=== PATIENT | female | born 1940 | race Caucasian/White ===

== ENCOUNTER 2016-11-02 13:35 | Inpatient (IN) | payer OTHER, MEDICARE ==
[~2016-11-02] VITALS: Ht 152.4 cm; Wt 55.3 kg
[~2016-11-02 13:35] MED LIST: AMITRIPTYLINE H10 M1 PO; ATENOLOL25 MG PO; ATIVAN0.5 MG PO; COMBIGAN 0.2%-010 ML OPH; DELTASONE20 MG PO; ECOTRIN81 MG PO; ESCITALOPRAM10 MG PO; FISH OIL CONC1000 MG PO; FUROSEMIDE20 M1 PO; FUROSEMIDE20 MG PO; GLIPIZIDE ER2.5 M1 PO; GLIPIZIDE ER2.5 MG PO; K-DUR 20MEQ TA20 MEQ PO; LANTUS SOL100 UNIT/1 SC; MAGOX 400241.3 MG PO; MIRTAZAPINE15 MG PO; NEURONTIN100 M1 PO; NEURONTIN100 MG PO; NOVOLOG FL100 UNIT/1; NOVOLOG FL100 UNIT/1 SC; POTASSIUM CHLO20 ME2 PO; PREDNISOLONE AC10 ML OPH; PRESERVISION1 SGL PO; REMERON 7.5MG7.5 MG PO; RISPERIDONE PO; RISPERIDONE3 M1 PO; RISPERIDONE3 MG PO; RISPERIDONE4 M1 PO; TYLENOL #31 TAB PO; VITAB121000 PO; ZITHROMAX500 M2 PO; [UNRECOGNIZED DRUG - CODE] OPH; [UNRECOGNIZED DRUG - OTHER] OPH
--- NOTE | 2016-11-02 14:19 | NUR ---
PER AUSIS, PT HAS HAD INCREASING WEAKNESS, CONFUSION AND PAIN ALL OVER, LOWER LEG EDEMA X 3 DAYS. LIVES ALONE, IS LEGALLY BLIND. PMH: CHF, PNEUMONIA, ? DEMENTIA. PRESNETLY ALERT AND ORIENTED TO DATE, TIME PERSON.
--- NOTE | 2016-11-02 14:24 | NUR ---
PER GRAND DAUGHTER, AFTER LAST ADMISSION; PT REFUSED HOME HEALTH AIDES OR OTHER ASSISTANCE AT HOME.
--- NOTE | 2016-11-02 14:26 | NUR ---
APPRECIATE TRIAGE NOTE. PT TO ROOM 16 VIA WHEELCHAIR. ASSISTED INTO HOSPITAL GOWN AND ONTO STRETCHER. EKG IN PROGRESS.
--- NOTE | 2016-11-02 14:38 | NUR ---
[place] SHRESTHA TO BEDSIDE FOR EVAL.
--- NOTE | 2016-11-02 14:48 | ED GENERAL ADULT ---
History of Present Illness General Chief Complaint: General Adult Stated Complaint: AMS,WEAKNESS, PAIN - MULTIPLE COMPLAINTS Source: patient Exam Limitations: no limitations Triage Note: PER GRANDAUSIS, PT HAS HAD INCREASING WEAKNESS,PAIN ALL OVER, LOWER LEG EDEMA X 3 DAYS. LIVES ALONE, Triage Nurses Notes Reviewed? yes Onset: Gradual Duration: worse persistent since (3 DAYS) Timing: recent history Injury Environment: home Severity: moderate No Modifying Factors: none HPI: Patient is a 76-year-old female with history of hypertension, diabetes presenting to the emergency department with granddaughter with chief complaint of intermittent altered mental status progressive weakness over the past 3-4 days. Granddaughter reports that she's been unable to get out of bed and barely can walk around. She usually ablates with a cane and has had difficulty. Denies any nausea or vomiting or fevers or chills. Patient denying any urinary symptoms. Patient denying any abdominal pain. She does report that she has chronic back and extremity pain. She is currently on Lyrica and the dose was increased last week. Denies any other changes in medication. No recent antibiotics. [place]IO[place] F[place]. Per granddaughter patient has been not acting herself and she called earlier and thought she sounded confused over the phone. Patient reported that she wasn't sure if she took her medications are OR IF SHE DOUBLED Up on her medications. (FADY ATKINSON,GERMAIN) Vital Signs & Intake/Output Vital Signs & Intake/Output Vital Signs Date Time Temp Pulse Resp B/P Pulse O2 O2 Flow FiO2 Ox Delivery Rate 11/02 1951 97.1 75 18 151/67 98 Room Air 11/02 1657 97.3 64 18 152/66 97 Room Air 11/02 1448 97.6 67 18 130/60 100 Room Air Room Air Allergies Coded Allergies: oxycodone (From PERCOCET) (Intermediate, NAUSEA 11/02/16) Reconcile Medications Aspirin (Ecotrin) 81 MG ECT 1 TAB PO DAILY HEART/BLOOD (Reported) Atenolol 25 MG TAB 25 MG PO DAILY HIGH BLOOD PRESSURE (Reported) Atropine Sulfate (Atropine Care) 15 ML FLACA 1 DROP OPH Saturday BOTH EYES (Reported) Brimonidine Tartrate/Timolol (Combigan Eye Drops) 0.2 %-0.5 % DROPS 1 DRP OP BID EYE (Reported) Celecoxib 200 MG CAPSULE 1 CAP PO DAILY PAIN (Reported) Cyanocobalamin (Vitamin B-12) 1,000 MCG TAB 1 TAB PO DAILY SUPPLEMENT ( Reported) Escitalopram Oxalate (Lexapro) 10 MG TABLET 1 TAB PO DAILY MENTAL HEALTH ( Reported) Fish Oil (Fish Oil Concentrate) 1,000 MG SGL 1 SGL PO DAILY SUPPLEMENT ( Reported) Furosemide 20 MG TABLET 1 TAB PO DAILY HYPERTENSION (Reported) Gabapentin (Neurontin) 100 MG CAPSULE 1 CAP PO AT BEDTIME PAIN Glipizide (Glipizide ER) 2.5 MG TAB.ER.24 1 TAB PO TID DM (Reported) Insulin Aspart, Recombinant (Novolog Flexpen) 100 UNIT/1 ML INSULN.PEN 0 SC TID DM (Reported) Insulin Glargine,Hum.rec.anlog (Lantus Solostar) (Unknown Strength) INSULN.PEN (Unknown Dose) SC QPM DIABETES (Reported) Lorazepam 0.5 MG TABLET 1 TAB PO QPM SLEEP (Reported) MAGNESIUM OXIDE (Magox 400) 241.3 MG TAB 1 TAB PO BID SUPPLEMENT (Reported) Potassium Chloride 20 MEQ TAB.ER.PRT 1 TAB PO DAILY SUPPLEMENT (Reported) Prednisolone Acetate 10 ML NATALIA 1 DROP OPH SATURDAY WED SATURDAY BOTH EYES ( Reported) Prednisone 2.5 MG TABLET 1 TAB PO DAILY STEROID (Reported) Pregabalin (Lyrica) 100 MG CAPSULE 1 CAP PO TID PAIN (Reported) Risperidone (Risperdal) 3 MG TABLET 2 TAB PO QPM MENTAL HEALTH (Reported) Sodium Chloride (Ariane-128) 2 % DROPS 1 DRP OP TID EYE (Reported) Tylenol With Codeine (Tylenol With Codeine #3 Tablet) 1 TAB TAB 1 TAB PO BID PRN cough (Reported) VIT A/VIT C/VIT E/ZINC/COPPER (Preservision Areds Softgel) 1 SGL SGL 1 SGL PO BID SUPPLEMENT (Reported) (LUDMILA HEBERT,[place] Arnett) Past History Travel History Traveled to [place] past 21 day No Medical History Any Pertinent Medical History? 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 Endocrine: DIABETES (TYPE 2) Blood Disorders: NONE Cancer(s): NONE RETAIL DEPARTMENT RESET/Reproductive: NONE History of MRSA: No History of VRE: No History of CDIFF: No Surgical History Surgical History: hip replacement, KNEE REPLACMENT Psychosocial History Who do you live with Patient/Self Services at Home Nursing What is your primary language Gambian Tobacco Use: Never used ETOH Use: denies use Family History Family History, If Any: BROTHER (Seizures as a child, outgrown. No other family history of epilepsy). Hx Contributory? No (GERMAIN AMBROCIO) Review of Systems Review of Systems Constitutional: Reports: malaise, weakness. Comments Review of systems: See HPI, All other systems negative. Constitutional, no chills fever or weight loss HEENT: No visual changes no sore throat no congestion Cardiovascular: No chest pain ,palpitation , orthopnea or ankle swelling Skin, no jaundice no rashes Respiratory: No dyspnea cough sputum or hemoptysis GI: No nausea no vomiting : No dysuria No hematuria Muscle skeletal: POS BACK AND NECK Neurologic: No numbness NO HEADACHE Psych: No stress anxiety or depression,. Heme/endocrine: No bruising no bleeding no polyuria or polydipsia Immunology: No splenectomy or history of AIDS (GERMAIN AMBROCIO) Physical Exam Physical Exam General Appearance: well developed/nourished, comfortable, FATIGUED Comments: Well-developed well-nourished person in no acute distress HEENT: extraocular motion intact, no nystagmus. Pupils equally round and reactive to light and accommodation. Nose is atraumatic. External auditory canal and Tympanic membranes clear. Pharynx normal. No swelling or edema. Neck: Supple, no lymphadenopathy, normal range of motion without pain or tenderness Back: Nontender, no CVA tenderness. Full range of motion Cardiovascular: Regular rate and rhythms no murmurs rubs or gallops, normal JVP Respiratory: Chest nontender. No respiratory distress.breath sounds clear to auscultation bilaterally Abdomen: Soft, nontender nondistended, no appreciable organomegaly. Normal bowel sounds. No ascites, NO REBOUND OR GAURDING. Extremity: No edema, no calf tenderness to palpation, normal and equal pulses. Walks with minimal assistance of one with cane. Neuro: Alert oriented x3, motor sensory normal, cranial nerves II through XII grossly intact. Skin: No appreciable rash on exposed skin, skin is warm and dry. Psych: Mood and affect is normal, memory and judgment is normal. Core Measures ACS in differential dx? No CVA/TIA Diagnosis: No Severe Sepsis Present: No Septic Shock Present: No (GERMAIN AMBROCIO) Progress Differential Diagnoses I considered the following diagnoses in my evaluation of the patient: UTI, PNA, MEDICATION NON-COMPLIANCE, MEDICATION REACTION, CHRONIC PAIN, CVA Diagnostic Imaging: Viewed by Me: Radiology Read, CT Scan. Discussed w/RAD: Radiology Read, CT Scan. Radiology Impression: PATIENT: DONNAMARCH PRESENT AGE: 76 PATIENT ACCOUNT NO: [id number] : 39 LOCATION: ER ORDERING PHYSICIAN: GERMAIN ATKINSON SERVICE DATE: 11/02/16 EXAM TYPE: CAT - CT HEAD WO IV CONTRAST EXAMINATION: CT HEAD WITHOUT CONTRAST CLINICAL INFORMATION: Confusion COMPARISON: 12/13/2015 TECHNIQUE: Contiguous axial imaging was performed from the skull base to vertex without intravenous administration of contrast. DLP: 600 mGy-cm. FINDINGS: There is no evidence of acute intracranial hemorrhage or territorial infarction. No abnormal mass effect or midline shift is seen. Byrd to white matter differentiation is well preserved. No extra-axial fluid collections are identified. The ventricles are normal in size. There is no abnormal attenuation within the brain parenchyma. The osseous structures and soft tissues are normal. The mastoid air cells and visualized portions of the paranasal sinuses are well aerated. IMPRESSION: No acute intracranial pathology. DICTATED BY: KENZIE ARMENTA MD DATE/TIME DICTATED:11/02/161613 ARMHOLE RAISER LOCKSTITCH: NANCY DATE/TIME TRANSCRIBED:11/02/161613 CONFIDENTIAL, DO NOT COPY WITHOUT APPROPRIATE AUTHORIZATION. <Electronically signed in Other Vendor System> SIGNED BY: KENZIE ARMENTA MD 11/02/161617 CXR Impression: PATIENT: DONNA PRESENT AGE: 76 PATIENT ACCOUNT NO: [id number] : 39 LOCATION: ER ORDERING PHYSICIAN: GERMAIN ATKINSON SERVICE DATE: 11/02/16 EXAM TYPE: RAD - XRY- PORTABLE CHEST XRAY EXAMINATION: XR PORTABLE CHEST CLINICAL INFORMATION: Weakness, URI symptoms COMPARISON: 05/08/2016 TECHNIQUE: Portable view of the chest was obtained. FINDINGS: The lungs are clear with no focal consolidation. No evidence of pneumothorax, pulmonary edema, or pleural effusions. Cardiac size is within normal limits. Calcification is present at the aortic arch. No acute osseous findings are seen. IMPRESSION: No acute cardiopulmonary findings. DICTATED BY: GAURAV RYDER MD DATE/TIME DICTATED:11/02/161510 ARMHOLE RAISER LOCKSTITCH:NANCY DATE/TIME TRANSCRIBED:11/02/161510 CONFIDENTIAL, DO NOT COPY WITHOUT APPROPRIATE AUTHORIZATION. <Electronically signed in Other Vendor System> SIGNED BY: GAURAV RYDER MD 11/02/161516 Initial ED EKG: NORMAL SINUS RHYTHM AT 66 BPM Prior EKG: unchanged Comments: On arrival patient is neurologically intact but appears fatigued. We will assess CBC, CMP, urine drug screen, urinalysis, chest x-ray. Family concern for intermittent altered mental status and concern for safety at home. They're concerned that she stopped taking her medications properly and get some confused. Patient denies this. 11/02/2016 6:45:07 PMPatient family members informed of all of her results and imaging study results. Her opiate level and her urine drug screen is greater than 4000. It was explained that this could definitely contributing to a intermittent altered mental status and her weakness. Recent increases in lyrica dosing can also cause exaggerated symptoms. Patient will need medication adjustments, physical therapy evaluation, potentially rehabilitation placement. Patient unsafe to be home alone. Patient was seen and evaluated by Dr. Joe and he agrees with plan. (FDAY ATKINSON,GERMAIN) Plan of Care: Orders Procedure Date/time Status Consistent Carbohydrate 1 11/03 B Active Code Status 11/02 2040 Active Admit to inpatient 11/02 2003 Active TRC EVALUATION (GEN) 11/02 1951 Active OXYGEN SETUP (GEN) 11/02 1951 Active Pathway - chart 11/02 1951 Active House Staff 11/02 1951 Active Patient Data 11/02 1951 Active Code Status 11/02 1951 Complete Patient Data 11/02 193 Active Telemetry/Die Polisher 11/02 1448 Active RAPID VIRAL INFLUENZA A 11/02 1448 Complete URINE DRUG SCREEN FOR ER ONLY 11/02 1448 Complete URINALYSIS 11/02 1448 Complete TROPONIN LEVEL 11/02 1448 Complete LACTIC ACID 11/02 1448 Complete COMPREHENSIVE METABOLIC PANEL 11/02 1448 Complete CBC WITHOUT DIFFERENTIAL 11/02 1448 Complete EKG 11/02 1426 Active VTE Mechanical Prophylaxis 11/02 UNK Active Vital Signs 11/02 UNK Active MISTAKE 11/02 UNK Active Intake & Output 11/02 UNK Active FingerStick- Glucose 11/02 UNK Active Current Medications Sig/Bertha Start time Last Medication Dose Stop Time Status Admin Insulin Aspart 0 TIDAC 11/03 0800 AC (NovoLOG) Laboratory Tests 11/02/16 1748: Lactic Acid Cancelled 11/02/16 1517: Urine Opiates Screen > 4000.00 H, Methadone Screen < 40, Barbiturate Screen < 60, Ur Phencyclidine Scrn < 6.00, Amphetamines Screen < 100, U Benzodiazepines Scrn < 85, Urine Cocaine Screen < 50, Urine Cannabis Screen < 5.00, Urine Color YEL, Urine Clarity CLEAR, Urine pH 6.0, Ur Specific [place] 1.010, Urine Protein NEG, Urine Ketones NEG, Urine Nitrite NEG, Urine Bilirubin NEG, Urine Urobilinogen 0.2, Ur Leukocyte Esterase NEG, Ur Microscopic EXAM NOT REQUIRED, Urine Hemoglobin NEG, Urine Glucose NEG 11/02/16 1506: Anion Gap 7, Estimated GFR > 60, BUN/Creatinine Ratio 30.0 H, Glucose 106 H, Lactic Acid 1.6, Calcium 8.1 L, Total Bilirubin 0.3, AST 18, ALT 30, Alkaline Phosphatase 93, Troponin I < 0.01, Total Protein 5.6 L, Albumin 2.8 L, Globulin 2.8, Albumin/Globulin Ratio 1.0 L, CBC w Diff NO MAN DIFF REQ, RBC 3.70 L, MCV 85.5, MCH 28.8, RDW 14.6 H, MPV 7.9, Gran % 67.6, Lymphocytes % 18.6 L, Monocytes % 12.4 H, Eosinophils % 1.1, Basophils % 0.3, Absolute Granulocytes 3.9, Absolute Lymphocytes 1.1 L, Absolute Monocytes 0.7 H, Absolute Eosinophils 0.1, Absolute Basophils 0, PUBS MCHC 33.7 Departure Departure Time of Disposition: 1843 Disposition: STILL A PATIENT Condition: Stable Clinical Impression Primary Impression: Altered mental status, unspecified Qualifiers: Altered mental status type: unspecified Qualified Code: R41.82 - Altered mental status, unspecified Secondary Impressions: Noncompliance with medication regimen Referrals: FRANCK HEBERTMARGARETH (PCP/Family) Departure Forms: Customer Survey General Discharge Information Admission Note Spoke With: ANNALEE MOORE MD Documentation of Exam: Documentation of any treatments & extenuating circumstances including Concerns Regarding Discharge (functional status, medication knowledge or non-compliance, living conditions, etc.) that warrant an admission rather than observation: Patient coming in for altered mental status and intermittent and progressively getting worse over last 3-4 days, patient is unsafe home to manage her medications, patient requiring IV hydration, medication management and potentially altering medication regimen to effectively provide adequate pain relief without causing excessive drowsiness, patient may need teary psychiatric consultation, patient potentially may need rehabilitation placement pending physical therapy consultation for safety. (GERMAIN AMBROCIO) PA/IT SERVICE MANAGER Co-Sign Statement Statement: ED Attending supervision documentation- [x] I saw and evaluated the patient. I have also reviewed all the pertinent lab results and diagnostic results. I agree with the findings and the plan of care as documented in the PA's/IT SERVICE MANAGER's documentation. [] I have reviewed the ED Record and agree with the PA's/IT SERVICE MANAGER's documentation. [] Additions or exceptions (if any) to the PAs/IT SERVICE MANAGER's note and plan are summarized below: [] (LUDMILA HEBERT,[place] Arnett) Critical Care Note Critical Care Note Critical Care Time: non-applicable (GERMAIN AMBROCIO)
--- NOTE | 2016-11-02 15:09 | NUR ---
BLOOD DRAWN AND SENT TO LAB. SST,LAV,BLUE,QUICK.
--- NOTE | 2016-11-02 15:13 | NUR ---
PHARMACY CALLED FOR FLU SWAB.
[2016-11-02 15:16] LABS: ABSOLUTE BASOPHIL COUNT 0 /CUMM (0.0-0.2); ABSOLUTE EOSINOPHIL COUNT 0.1 /CUMM (0.0-0.7); ABSOLUTE GRANULOCYTE CT 3.9 /CUMM (1.4-6.5); ABSOLUTE LYMPH COUNT 1.1 /CUMM (1.2-3.4); ABSOLUTE MONOCYTE COUNT 0.7 /CUMM (0.10-0.60); BASOPHIL % 0.3 % (0.0-2.0); EOSINOPHIL % 1.1 % (0-5); GRANULOCYTE % 67.6 % (42.2-75.2); HEMATOCRIT 31.6 % (37-47); MEAN CORPUSCULAR HGB 28.8 PG (27.0-31.0); MEAN CORPUSCULAR HGB CONC 33.7 G/DL (33.0-37.0); MEAN CORPUSCULAR VOLUME 85.5 FL (81.0-99.0); MEAN PLATELET VOLUME 7.9 FL (7.4-10.4); PLATELET COUNT 205 /CUMM (130-400); RBC DISTRIBUTION WIDTH 14.6 % (11.5-14.5); WHITE BLOOD CELL COUNT 5.8 /CUMM (4.8-10.8)
--- NOTE | 2016-11-02 15:17 | RADIOLOGY REPORT ---
EXAMINATION: XR PORTABLE CHEST CLINICAL INFORMATION: Weakness, URI symptoms COMPARISON: 05/08/2016 TECHNIQUE: Portable view of the chest was obtained. FINDINGS: The lungs are clear with no focal consolidation. No evidence of pneumothorax, pulmonary edema, or pleural effusions. Cardiac size is within normal limits. Calcification is present at the aortic arch. No acute osseous findings are seen. IMPRESSION: No acute cardiopulmonary findings.
[2016-11-02] MEDS ORDERED: CELECOXIB200 M1 PO (15:20)
[2016-11-02] MEDS ORDERED: LORAZEPAM0.5 M1 PO (15:20)
[2016-11-02] MEDS ORDERED: LYRICA100 M1 PO (15:20)
[2016-11-02] MEDS ORDERED: PREDNISONE2.5 M1 PO (15:21)
--- NOTE | 2016-11-02 15:22 | NUR ---
URINE TRIO SENT TO LAB.
[2016-11-02] MEDS ORDERED: LEXAPRO10 M1 PO (15:23)
[2016-11-02] MEDS ORDERED: RISPERDAL3 M1 PO (15:23)
[2016-11-02] MEDS ORDERED: MURO-12815 ML OP (15:27)
[2016-11-02] MEDS ORDERED: COMBIGAN EYE DRO5 ML OP (15:28)
--- NOTE | 2016-11-02 15:39 | NUR ---
FLU SWAB SENT, LINE EST #22 TO [facility]. MEDICATIONS HUNG PER EMAR.
--- NOTE | 2016-11-02 15:41 | NUR ---
PT TO CAT SCAN VIA STRETCHER.
--- NOTE | 2016-11-02 16:18 | CT SCAN REPORT ---
EXAMINATION: CT HEAD WITHOUT CONTRAST CLINICAL INFORMATION: Confusion COMPARISON: 12/13/2015 TECHNIQUE: Contiguous axial imaging was performed from the skull base to vertex without intravenous administration of contrast. DLP: 600 mGy-cm. FINDINGS: There is no evidence of acute intracranial hemorrhage or territorial infarction. No abnormal mass effect or midline shift is seen. Byrd to white matter differentiation is well preserved. No extra-axial fluid collections are identified. The ventricles are normal in size. There is no abnormal attenuation within the brain parenchyma. The osseous structures and soft tissues are normal. The mastoid air cells and visualized portions of the paranasal sinuses are well aerated. IMPRESSION: No acute intracranial pathology.
--- NOTE | 2016-11-02 17:15 | NUR ---
DR. KEYS TO BEDSIDE TO EVALUATE PT.
--- NOTE | 2016-11-02 17:34 | NUR ---
[place] SHRESTHA TO BEDSIDE TO DISCUSS RESULTS AND POC.
--- NOTE | 2016-11-02 17:56 | NUR ---
TRAY ORDERED PER FAMILY REQUEST.
--- NOTE | 2016-11-02 20:04 | History & Physical ---
FLORENCIO JOHNSTON MD 11/02/161999: General Information and HPI MD Statement: I have seen and personally examined DONNA,MARCH and documented this H&P. The patient is a 76 year old F who presented with a patient stated chief complaint of [pain, weakness, confusion]. Source of Information: patient, family Exam Limitations: poor historian History of Present Illness: 76-year-old female with PMH of macular degeneration, legally blind both eyes, HTN, IDDM, neuropathy, chronic back pain, late onset paranoid schizophrenia, [facility] of severe generalized pain, altered mental status, and weakness. Initially, we obtained history from the patient. She was alert and oriented X 3. She was having 6/10, sharp lower back pain. The back pain has been chronic, reportedly from "dislocated disc". Over the past 3-4 days, she has had severe pain, on her back, arms, and legs. She has been having jerking movements on her legs and arms. She reported taking her medications as directed, including taking only 2 pills of tylenol # 3 daily. She lives on her own, in a trailer. She administers medications to herself with the help of a magnifying glass, and a machine that reads out loud her blood glucose level. I then spoke to her POA, Danna, who is her granddaughter, over the phone. According to Danna, pt has been having severe pain on her back, legs, and arms, for 4 months. THe pain is severe that she has difficulty standing up. It might take her 5 minutes to stand up from a sitting position. She has had cold symptoms and appeared more confused for the past 2 days. She would forget what she was trying to say, she also said "I might have taken my insulin twice", she would also say "weird things" to her granddaughters that did not make any sense. She reported not being able to see her pills, and not being able to see her food. Lyrica was increased a week ago due to the pain, and she has been increasingly somnolent. The pain is limiting her social activities that she does not want to leave the house because of pain. However, when she is on meds to control the pain, she is weak and tired, like "a zombie". As pt eats mostly microvable food, she has burnt her fingers a few times because the food was too hot. Danna has been concerned that she is not safe to be at home by herself and had social workers assessed her living condition. She had a visiting nurse come at some point, but she was reportedly safe by herself, hence they stopped coming 5 months ago. She was then offered services for meal preps and meds admin in exchange of her trailer when she passes away, which the patient adamently refused. Pt was very excited about the services but do not want to give away her home. Danna has previous asked her if they can live together, but the patient insists on living on her own. During previous attempts to discuss alternative living options, pt has gotten defensive and combative. She has "locked out" her visiting nurse and granddaughters in the past when the topic has been brought up. Danna's goal for this admission is to have a safe discharge plan for the patient. The pt's frustrations when she has been hospitalized in the past hast been inadequate pain control. In the past, her pain meds was lowered at discharge, which puts her in severe pain, requiring Dr. Juárez to bring the dose back up. She is upset that she is only getting tylenol for pain in the ED. I have discussed to Danna that we are reluctant to give her opioids for the pain at this time, and we would lower the lyrica dose. Allergies/Medications Allergies: Coded Allergies: oxycodone (From PERCOCET) (Intermediate, NAUSEA 11/02/16) Home Med list Aspirin (Ecotrin) 81 MG ECT 1 TAB PO DAILY HEART/BLOOD (Reported) Atenolol 25 MG TAB 25 MG PO DAILY HIGH BLOOD PRESSURE (Reported) Atropine Sulfate (Atropine Care) 15 ML FLACA 1 DROP OPH Saturday BOTH EYES (Reported) Brimonidine Tartrate/Timolol (Combigan Eye Drops) 0.2 %-0.5 % DROPS 1 DRP OP BID EYE (Reported) Celecoxib 200 MG CAPSULE 1 CAP PO DAILY PAIN (Reported) Cyanocobalamin (Vitamin B-12) 1,000 MCG TAB 1 TAB PO DAILY SUPPLEMENT ( Reported) Fish Oil (Fish Oil Concentrate) 1,000 MG SGL 1 SGL PO DAILY SUPPLEMENT ( Reported) Furosemide 20 MG TABLET 1 TAB PO DAILY HYPERTENSION (Reported) Insulin Aspart, Recombinant (Novolog Flexpen) 100 UNIT/1 ML INSULN.PEN 0 SC TID DM (Reported) Insulin Glargine,Hum.rec.anlog (Lantus Solostar) (Unknown Strength) INSULN.PEN 12 UNIT SC QPM DIABETES (Reported) MAGNESIUM OXIDE (Magox 400) 241.3 MG TAB 1 TAB PO BID SUPPLEMENT (Reported) Potassium Chloride 20 MEQ TAB.ER.PRT 1 TAB PO DAILY SUPPLEMENT (Reported) Prednisolone Acetate 10 ML NATALIA 1 DROP OPH Saturday BOTH EYES ( Reported) Pregabalin (Lyrica) 150 MG CAPSULE 1 CAP PO TID Chronic pain (Reported) Risperidone (Risperdal) 3 MG TABLET 2 TAB PO QPM MENTAL HEALTH (Reported) Sodium Chloride (Ariane-128) 2 % DROPS 1 DRP OP TID EYE (Reported) Tylenol With Codeine (Tylenol With Codeine #3 Tablet) 1 TAB TAB 1 TAB PO BID PRN cough (Reported) VIT A/VIT C/VIT E/ZINC/COPPER (Preservision Areds Softgel) 1 SGL SGL 1 SGL PO BID SUPPLEMENT (Reported) Past History Travel History Traveled to [place] past 21 day No Medical History Neurological: NEUROPATHY EENT: glaucoma, macular degeneration, LEGALLY BLIND - + PERIPHERAL VISION Cardiovascular: hypertension, 79% CAROTID OCCULSION Respiratory: NONE Gastrointestinal: NONE Hepatic: NONE Renal: NONE Musculoskeletal: NONE Psychiatric: schizophrenia, major depressive disorder with psychotic features. 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 No other family history of epilepsy). Psychosocial History Where do you live? Home Who Do You Live With? self Services at Home: None Primary Language: [place] Smoking Status: Never Smoked ETOH Use: denies use Illicit Drug Use: denies illicit drug use Functional Ability ADLs Independent: dressing, eating, toileting, bathing. Ambulation: cane IADLs Independent: food prep, telephone, medication admin. Needs Assist: shopping, housework, finances, transportation. Review of Systems Review of Systems Constitutional: Reports: chills, weakness. Denies: fever. EENTM: Denies: visual changes. Cardiovascular: Denies: chest pain, palpitations, syncope. Respiratory: Denies: cough, short of breath, sputum production. GI: Denies: abdominal pain, bloating, constipation, diarrhea, nausea, vomiting. Genitourinary: Denies: dysuria. Exam & Diagnostic Data Last 24 Hrs of Vital Signs/I&O Vital Signs Date Time Temp Pulse Resp B/P Pulse O2 O2 Flow FiO2 Ox Delivery Rate 11/028 97.4 72 18 133/63 98 Room Air Room Air 11/02 1952 97.1 75 18 151/67 98 Room Air 11/02 1657 97.3 64 18 152/66 97 Room Air 11/02 1448 97.6 67 18 130/60 100 Room Air Room Air Intake & Output 11/02 1600 11/02 0800 11/02 0000 Intake Total Output Total Balance Patient 55.338 kg Weight Physical Exam General Appearance Alert, Oriented X3, Cooperative, No Acute Distress, comfortably sitting in bed eating her dinner Skin No Significant Lesion HEENT left eyelid droop (chronic) Neck Supple, No JVD, right carotid bruit Lymphatic Axillary nl, Cervical nl Cardiovascular Regular Rate, Normal S1, Normal S2, No Murmurs, Gallops, Rubs Lungs Clear to Auscultation, Normal Air Movement Abdomen Normal Bowel Sounds, Soft, No Tenderness, tender on the lumbar spine Neurological Normal Speech, Strength at 5/5 X4 Ext Extremities No Edema, Normal Pulses Last 24 Hrs of Labs/Cipriano: Laboratory Tests 11/02/16 1517: Urine Opiates Screen > 4000.00 H, Methadone Screen < 40, Barbiturate Screen < 60, Ur Phencyclidine Scrn < 6.00, Amphetamines Screen < 100, U Benzodiazepines Scrn < 85, Urine Cocaine Screen < 50, Urine Cannabis Screen < 5.00, Urine Color YEL, Urine Clarity CLEAR, Urine pH 6.0, Ur Specific Toyah 1.010, Urine Protein NEG, Urine Ketones NEG, Urine Nitrite NEG, Urine Bilirubin NEG, Urine Urobilinogen 0.2, Ur Leukocyte Esterase NEG, Ur Microscopic EXAM NOT REQUIRED, Urine Hemoglobin NEG, Urine Glucose NEG 11/02/16 1506: Anion Gap 7, Estimated GFR > 60, BUN/Creatinine Ratio 30.0 H, Glucose 106 H, Lactic Acid 1.6, Calcium 8.1 L, Total Bilirubin 0.3, AST 18, ALT 30, Alkaline Phosphatase 93, Troponin I < 0.01, Total Protein 5.6 L, Albumin 2.8 L, Globulin 2.8, Albumin/Globulin Ratio 1.0 L, Vitamin B12 949 H, 25-OH Vitamin D Total 21.9 L, TSH 3.040, Free T4 1.19, CBC w Diff NO MAN DIFF REQ, RBC 3.70 L, MCV 85.5, MCH 28.8, RDW 14.6 H, MPV 7.9, Gran % 67.6, Lymphocytes % 18.6 L, Monocytes % 12.4 H, Eosinophils % 1.1, Basophils % 0.3, Absolute Granulocytes 3.9, Absolute Lymphocytes 1.1 L, Absolute Monocytes 0.7 H, Absolute Eosinophils 0.1, Absolute Basophils 0, PUBS MCHC 33.7 Diagnostic Data EKG Results SR 66, Peak T wave on V2 CXR Results No acute findings Other Results Head CT: no acute findings Assessment/Plan Assessment: 76-year-old female with PMH of macular degeneration, legally blind both eyes, HTN, IDDM, neuropathy, chronic back pain, late onset paranoid schizophrenia, was brought in by her [facility] for chief complaint of severe generalized pain, altered mental status, and weakness. Pt admitted to with the following problems addressed: # Increased confusion possibly due to polypharmacy vs recent increase in lyrica dose vs dementia vs hypoglycemia due to inappropriate insulin use vs opioid overdose from tylenol # 3 - Vit D level low - vit b12, tsh, ft4 normal * Start Vit D supplement * MMSE in am * PT/OT for discharge plan * SW * Consider psych evaluation on Saturday * I have asked Danna to bring her meds from home so that we can count the pills to make sure she is not accidentally overdosing on her meds # Acute on chronic back pain * Lumbar xray: Stable appearing compression deformity involving L2 * Lyrica 100 mg tid (was recently increased to 150 tid) * Hold tylenol # 3, pt has upset stomach with oxycodone * Tylenol and NSAIDs for pain, start PPI * Hold home celecoxib 200 mg for now # Hyperkalemia - K 5.2 with peak T wave on V2 * Hold home K supplement # Hyponatremia - Na 134 * Continue to monitor sodium # IDDM * Accucheck * Insulin ss * Levemir 12 units at bedtime # HTN/Cardiac meds * Continue aspirin 81 mg, atenolol 25 mg, lasix 20 mg * Hold Kcl supplement (home 20 meq) # Macular degeneration * Continue atropine sulfate, brimonidine/timolol, prednisolone acetate eye drops # Schizophrenia * Continue risperidone 6 mg qpm # Home meds * Continue Vit B12, fish oil, mg ox * Not available: karl a/c/e/zinc/copper, nacl eye drop Diet: heart healthy DVT ppx: mech and pharm DNR/DNI As Ranked By This Provider Problem List: 1. Back pain 2. Altered mental status Qualifiers Altered mental status type: unspecified Qualified Code: R41.82 - Altered mental status, unspecified 3. Complaints of total body pain Core Measures/Miscellaneous Acute Coronary Syndrome ACS Diagnosis: No Cerebrovascular Accident CVA/TIA Diagnosis: No Congestive Heart Failure CHF Diagnosis: No Venous Thromboembolism VTE Risk Factors: Age > 40 VTE Prophylaxis Ordered Inpt: Mech & Pharm No Mech VTE prophylaxis d/t: No contraindications No VTE Pharm Prophylaxis d/t: No contraindications VTE Diagnosis: No VTE Type: NONE VTE Confirmed by (Test): NONE Severe Sepsis Severe Sepsis Present: No Septic Shock Septic Shock Present: No Miscellaneous Documentation Attending Case Discussed With: ANNALEE MOORE MD Primary Care Physician: MARGARETH JUÁREZ MD A Patient sees these Specialists [facility] Level of Patient Care: General Medicine TIFFANIE PRUITT 11/02/16 2331: Resident Review Statement Resident Statement: examined this patient, discussed with financial intern, agreed with financial intern, reviewed images Other Findings: This is a 76-year-old lady with past medical history significant for hypertension, IDDM, neuropathy, chronic back pain, legally blind in both eyes ( macular degeneration), schizophrenia who was brought to the hospital by her granddaughter for increased back pain and weakness, she was also noted to have occasional altered mental status. Please see above for more details. VSS, AAO 3, NAD, head atraumatic, normocephalic, PERRLA, EOMI, neck supple, no JVD, right-sided carotid bruit, lymphatic normal, cardiovascular, RRR, no murmur. Lungs CTPA. Abdomen normal bowel sounds, soft, nontender, nondistended. Back: Tenderness on the lumbar spine region. Neurological: Nonfocal, normal speech, sensation intact, strength 5 over 54 extremities. No lower extremity edema, normal pulses. Labs and imaging data reviewed. Problem list #1 worsening of chronic back pain #2 altered mental status (delirium versus dementia) #3 hyperkalemia #4 IDDM Plan * Vital signs per protocol * I's and O's * Accu-Cheks * MMSE in the morning * We will start the patient on vitamin D 2000 units daily given her vitamin D levels * PT/OT/social/psych consult * Lumbar x-ray to rule out any fracture * Will hold any opiates and sedatives, will resume Lyrica, at the lower dose of 100 mg 3 times a day * Tylenol and ibuprofen for pain management * Will Start a PPI * Will hold outpatient potassium supplement given mildly elevated potassium of 5.2 * We will hold oral hypoglycemic agents, will start the patient on insulin sliding scale and will continue Levemir 12 units at bedtime. 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 Patient was brought in by granddaughter for on and off confusion and drowsiness. Patient being more forgetful at home, granddaughter feels that she is Unsafe at home, patient lives in trailer. Patient sees she is been more and more sleepy for her chronic back pain is main complaint. 14 point ROS negative except back pain. Vitals: Afebrile, HR, RR, BP, O2 saturation in acceptable range. On examination: A O 3, lethargic, mucosa moist, neck supple, no lymphadenopathy, no focal neurological deficit, tenderness over left sacroiliac joint. CVS: S1-S2, RRR. RS : Clear air entry bilaterally. Abdomen: Soft, NT, ND, bowel sounds present, no dependent edema. Labs: Hemoglobin 10.6, lactate 1.6, otherwise CBC, BMP, LFT unremarkable. Albumin 2.8. U tox positive for opiate. CT head: No acute intracranial pathology CXR: No acute cardiopulmonary findings. A and P #1 encephalopathy: Probably secondary to polypharmacy, patient on multiple medications including gabapentin, Lyrica risperidone, Tylenol with Codeine combination. According to the history, patient is more forgetful so if she is taking more of this medications causing confusion is not known. Patient also mentions that she doesn't remember how much insulin and she take, ? Underlying dementia, need to readjust medication patient says that she stopped taking gabapentin unclear if she takes the Risperdal, recently increased dose of Lyrica. Check B12 level, TSH level, OT PT evaluation. #2 DM: Continue sliding scale insulin. Confirm her home dose of Lantus. #3 chronic pain : Continue NSAIDS for now given patient's confusion, very small dose of morphine for severe pain from 8-10 intensity. Obtain lumbar x-ray #4 HTN: Continue atenolol. #5 Lovenox for DVT prophylaxis, OT PT evaluation, ?placement
--- NOTE | 2016-11-02 20:06 | NUR ---
NS BOLUS HUNG PER EMAR. HOUSE STAFF TO BEDSIDE FOR EVAL. PT SITTING UP AND EATING MEAL AT THIS TIME.
--- NOTE | 2016-11-02 21:03 | NUR ---
PT BED ASSIGNMENT 209-1
--- NOTE | 2016-11-02 21:14 | NUR ---
REPORT GIVEN TO FERNANDO HARPER. DISTRIBUTION CALLED FOR PT TRANSPORT.
[2016-11-02] MEDS ORDERED: LYRICA150 M1 PO (22:14)
--- NOTE | 2016-11-02 22:44 | RADIOLOGY REPORT ---
EXAMINATION: XR LUMBAR SPINE CLINICAL INFORMATION: Worsening back pain. Assess for fracture. COMPARISON: CT of the abdomen and pelvis from 11/23/2015 TECHNIQUE: Single frontal view of the lumbar spine FINDINGS: There is mild height loss involving L2, which is grossly similar to the prior study accounting for differences in modality. L5 laminectomy is redemonstrated. There is a mild dextroconvex scoliosis. There is an equivocal new mild compression deformity involving T11 and possibly T10 as well, neither of which is well assessed on this single frontal view. There is moderate degenerative change of the SI joints. Bilateral total hip replacements are partially visualized. The bowel gas pattern is nonobstructive. There are scattered phleboliths in the pelvis. IMPRESSION: 1. Stable appearing compression deformity involving L2, comparing across modalities. 2. Equivocal interval compression deformities of T10 and T11, not ideally assessed on this single frontal view. 3. Mild dextroconvex lumbar scoliosis. Remote L5 laminectomy.
--- NOTE | 2016-11-02 22:47 | NUR ---
NURSE NOTE: PT ARRIVED TO FLOOR AT 2130 VIA TRANSPORT TO ROOM 209-. REPORT RECIEVED FROM KELLY IN ED. PT IS [id number] AT THIS TIME, RA. IV ACCESS, ORIENTED TO ROOM. BED ALARM IN PLACE, ORIENTED TO ROOM. CALL KEYS IN REACH AND BED IN LOWEST POSITION.
[2016-11-02 23:58] VITALS: BP 160/90
[2016-11-03 06:19] VITALS: BP 90/32
[2016-11-03 06:53] VITALS: BP 122/54
--- NOTE | 2016-11-03 07:11 | Admission Certification ---
Admission Certification Certification Statement - As attending physician, I certify that at the time of - admission, based on clinical presentation, severity of - symptoms, need for further diagnostic testing and - therapeutic interventions, and risk of adverse outcomes - without in-hospital treatment, in my clinical assessment, - this patient requires an acute hospital stay for a minimum - of two nights or longer. I have also considered psychsocial - factors such as support system, advanced age, financial - issues, cognitive issues, and failed out-patient treatments, - past re-admission history, safety of patient, and lack of - compliance as applicable. Specific rationale supporting this admission is: Encephalopathy
--- NOTE | 2016-11-03 07:47 | NUR ---
NURSE NOTE: AROUND 0600, PT STATED SHE FELT COLD AND WEAK, PT WAS SWEATING. VITALS WERE STABLE FOR THE MOST PART, I CHECKED BLOOD SUGAR, CAME BACK AT 54. UNDERWRITING CLERK PAGED, WHILE WAITING FOR UNDERWRITING CLERK, GAVE PT JUICE AND CRACKERS WITH PEANUT BUTTER. RECHECKED IN 15 MINUTES BLOD SUGR WAS 84. RECHECK AGAIN IN 15 MINUTES AFTER 2 MORE JUICES, BLOOD SUGAR 90. MD MCLEAN CAME TO SEE PATIENT AT THIS TIME(0700). REPORT GIVEN TO CARTER.
--- NOTE | 2016-11-03 07:59 | PN- Housestaff ---
See Addendum Subjective Follow-up For: Increased confusion Medication non-compliance Acute on chronic LBP Hyperkalemia Hyponatremia Subjective: Patient seen and examined at bedside this AM. She endorses improved LBP after treatment overnight and she offers no complaints. She reports she ambulates well and is unwilling to be discharged eventually to an ECF. On discussion with granddaughter, owen reports that Debi is unsafe to live at home alone as she can barely get out of bed in the AM and is unable to cook food- she just eats TV dinners which are loaded with sodium, which is concerning in the setting of her CHF. Anne is also worried that Debi is very unsteady on her feet and at high risk of falling in the setting of being legally blind. Review of Systems Constitutional: Denies: chills, fever, malaise, weakness. EENTM: Reports: see HPI. Denies: hearing changes, nasal congestion. Cardiovascular: Denies: chest pain, palpitations. Respiratory: Denies: cough, short of breath. Gastrointestinal: Denies: abdominal pain, bloating, constipation, diarrhea. Genitourinary: Denies: dysuria. Musculoskeletal: Denies: back pain. Skin: Denies: change in skin color, change in hair/nails. Neurological/Psychological: Denies: confusion, emotional problems, headache, numbness. Hematologic/Endocrine: Denies: bruising, bleeding. Objective Last 24 Hrs of Vital Signs/I&O Vital Signs Date Time Temp Pulse Resp B/P Pulse O2 O2 Flow FiO2 Ox Delivery Rate 11/03 0906 90 132/56 11/03 0653 122/54 11/03 0619 97.5 73 20 90/32 97 11/02 2358 98.7 106 20 160/90 97 11/02 2118 97.4 72 18 133/63 98 Room Air Room Air 11/02 1952 97.1 75 18 151/67 98 Room Air 11/02 1657 97.3 64 18 152/66 97 Room Air 11/02 1448 97.6 67 18 130/60 100 Room Air Room Air Intake & Output 11/03 1600 11/03 0800 11/03 0000 Intake Total 480 120 Output Total Balance 480 120 Intake, Oral 480 120 Patient 122 lb Weight Physical Exam General Appearance: Alert, Oriented X3, Cooperative, No Acute Distress Other Physical Findings: Skin No Significant Lesion HEENT left eyelid droop (chronic) Neck Supple, No JVD, right carotid bruit Lymphatic Axillary nl, Cervical nl Cardiovascular Regular Rate, Normal S1, Normal S2, No Murmurs/Gallops/Rubs Lungs Clear to Auscultation, Normal Air Movement Abdomen Normal Bowel Sounds, Soft, No Tenderness, tender over the lumbar spine Neurological Normal Speech, Strength at 5/5 X4 Ext Extremities No Edema, Normal Pulses Current Medications: Current Medications Sig/Bertha Start time Last Medication Dose Route Stop Time Status Admin Acetaminophen 650 MG Q6P PRN 11/02 2130 AC PO Acetaminophen 0 .STK-MED ONE 11/02 1533 DC IV Acetaminophen 1,000 MG ONCE ONE 11/02 1515 DC 11/02 N/A 1 UNIT IV 11/02 1529 1538 Aspirin 81 MG DAILY 11/03 1000 AC 11/03 PO 0906 Atenolol 25 MG DAILY 11/03 1000 AC 11/03 PO 0906 Atropine Sulfate 1 GTT 11/05 1000 AC OPH Brimonidine Tartrate 1 GTT BID 11/03 1000 AC 11/03 OPH 0906 Celecoxib 200 MG DAILY 11/03 1000 CAN PO Cholecalciferol 2,000 IU DAILY 11/03 1000 AC 11/03 PO 0906 Cyanocobalamin 1,000 MCG DAILY 11/03 1000 AC 11/03 PO 0913 Fish Oil 1,050 MG DAILY 11/03 1000 AC 11/03 PO 0906 Furosemide 20 MG DAILY 11/03 1000 AC 11/03 PO 0906 Ibuprofen 600 MG Q6P PRN 11/02 2130 AC 11/03 PO 0024 Insulin Aspart 0 TIDAC 11/03 0800 AC SC Insulin Detemir 12 UNITS AT BEDTIME 11/02 2330 AC 11/03 SC 0024 Magnesium Oxide 400 MG BID 11/03 1000 AC 11/03 PO 0906 Melatonin 5 MG ONCE ONE 11/03 0100 DC 11/03 PO 11/03 0101 0105 Omeprazole 40 MG DAILY AC 11/03 0700 AC 11/03 PO 0905 Prednisolone 1 GTT 11/05 1000 AC OPH Pregabalin 100 MG TID 11/02 2200 AC 11/03 PO 0909 Risperidone 6 MG QPM 11/02 2300 AC 11/03 PO 0026 Sodium Chloride 1,000 ML BOLUS ONE 11/02 1845 DC 11/02 IV 11/02 Timolol Maleate 1 GTT BID 11/03 1000 AC 11/03 OPH 0906 Last 24 Hrs of Lab/Cipriano Results Last 24 Hrs of Labs/Mics: Laboratory Tests 11/02/16 1748: Lactic Acid Cancelled 11/02/16 1517: Urine Opiates Screen > 4000.00 H, Methadone Screen < 40, Barbiturate Screen < 60, Ur Phencyclidine Scrn < 6.00, Amphetamines Screen < 100, U Benzodiazepines Scrn < 85, Urine Cocaine Screen < 50, Urine Cannabis Screen < 5.00, Urine Color YEL, Urine Clarity CLEAR, Urine pH 6.0, Ur Specific [place] 1.010, Urine Protein NEG, Urine Ketones NEG, Urine Nitrite NEG, Urine Bilirubin NEG, Urine Urobilinogen 0.2, Ur Leukocyte Esterase NEG, Ur Microscopic EXAM NOT REQUIRED, Urine Hemoglobin NEG, Urine Glucose NEG 11/02/16 1506: Anion Gap 7, Estimated GFR > 60, BUN/Creatinine Ratio 30.0 H, Glucose 106 H, Lactic Acid 1.6, Calcium 8.1 L, Total Bilirubin 0.3, AST 18, ALT 30, Alkaline Phosphatase 93, Troponin I < 0.01, Total Protein 5.6 L, Albumin 2.8 L, Globulin 2.8, Albumin/Globulin Ratio 1.0 L, Vitamin B12 949 H, 25-OH Vitamin D Total 21.9 L, TSH 3.040, Free T4 1.19, CBC w Diff NO MAN DIFF REQ, RBC 3.70 L, MCV 85.5, MCH 28.8, RDW 14.6 H, MPV 7.9, Gran % 67.6, Lymphocytes % 18.6 L, Monocytes % 12.4 H, Eosinophils % 1.1, Basophils % 0.3, Absolute Granulocytes 3.9, Absolute Lymphocytes 1.1 L, Absolute Monocytes 0.7 H, Absolute Eosinophils 0.1, Absolute Basophils 0, PUBS MCHC 33.7 Orders Radiology Findings: EXAMINATION: XR LUMBAR SPINE CLINICAL INFORMATION: Worsening back pain. Assess for fracture. COMPARISON: CT of the abdomen and pelvis from 11/23/2015 TECHNIQUE: Single frontal view of the lumbar spine FINDINGS: There is mild height loss involving L2, which is grossly similar to the prior study accounting for differences in modality. L5 laminectomy is redemonstrated. There is a mild dextroconvex scoliosis. There is an equivocal new mild compression deformity involving T11 and possibly T10 as well, neither of which is well assessed on this single frontal view. There is moderate degenerative change of the SI joints. Bilateral total hip replacements are partially visualized. The bowel gas pattern is nonobstructive. There are scattered phleboliths in the pelvis. IMPRESSION: 1. Stable appearing compression deformity involving L2, comparing across modalities. 2. Equivocal interval compression deformities of T10 and T11, not ideally assessed on this single frontal view. 3. Mild dextroconvex lumbar scoliosis. Remote L5 laminectomy. Head CT: IMPRESSION: No acute intracranial pathology. CXR: IMPRESSION: No acute cardiopulmonary findings. Assessment/Plan Assessment: Ms. Garg is a pleasant 76 year old female with PMH macular degeneration with legal bilateral blindess, HTN, IDDM, neuropathy, chronic back pain, and late onset paranoid schizophrenia who presented to the ED with her granddaughter after concerns for weakness, increasing confusion and low back pain (acute on chronic). Patient was admitted to the general medicine floor and the following is the management: 1. Encephalopathy * DDx: delirium vs dementia, polypharmacy, recent increase in lyrica dose, dementia, hypoglycemia/innapropriate insulin dose, opiod overdose (tylenol #3) * Vit D low, Vit B12/TSH/FT4 normal * MMSE done today shows no impairment (lost 1 point for recall, unable to WORLD backwards), of note, she could not perform visual tasks (3 points) * PT/OT consulted, PT suggested patient is stable for discharge home * Social work consult placed, will f/u recommendations * Florecita (granddaughter) brought patient's home meds and there are several medications patient appears to not be compliant with (see student report from for full details) * Patient will likely benefit from STR/ECF as she is unable to take medications appropriately * Continue Vit B12, fish oil, mg ox * Not available: karl a/c/e/zinc/copper, nacl eye drop 2. Acute on chronic LBP * Lumbar XR shows stable appearing L2 compression deformity, no new abnormalities noted * Lyrica 100 mg PO TID resumed (did not resume recently increased dose of 150 TID) * NSAIDs and tylenol for pain, HOLD tylenol #3 in setting of encephalopathy, hold any opiates and sedatives * PPI started * HOLD celecoxib 200 mg for now in setting of NSAIDs being ordered for pain 3. Hyperkalemia * K of 5.2 on admission * Peaked T wave in lead V2 * Hold K supplement for now, monitor BEP daily 4. Hyponatremia * Na of 134 on admission * Continue to monitor BEP 5. IDDM * Hold oral hypoglycemics * Continue accuchecks TIDAC/HS * NSS TIDAC/HS * Levemir 12 U bedtime, consider decreasing to 10 as granddaughter reports March recently was hypoglycemic at home 6. HTN * Continue aspirin 81 mg, atenolol 25 mg, lasix 20 mg * Monitor vitals Q shift 7. Macular degeneration * Continue atropine sulfate, brimonidine/timolol, prednisolone acetate eye drops 8. Schizophrenia * Continue risperidone 6 mg PO QPM DNR/DNI Diet: Heart healthy DVTP: mechanical and pharm Mild pain pathways- NSAIDS, hold Tylenol #3 Problem List: 1. Back pain 2. Altered mental status 3. Complaints of total body pain 4. Noncompliance with medication regimen Pain Ratin Pain Location: n/a Pain Goal: Remain pain free Pain Plan: Tylenol and NSAIDs for pain, hold tylenol #3 Tomorrow's Labs & Rationales: CBC (make sure anemia is stable) BEP (monitor her hyperkalemia and hyponatremia)
--- NOTE | 2016-11-03 10:41 | PN- Student ---
Subjective Subjective: Patient is a 76 year old female brought in by her [facility] for chief complaint of severe generalized pain, altered mental status, and weakness. Patient is non-complient with her home medications. Potassium Cl BID 60 pills refilled on 10/05/16 has over 20 pills left Atenolol 25 mg 30 pills refilled on 10/06/16 has 22 pills left Furosemide 20 mg 90 pills presribed on 09/20/16, has over 60 pills left Furosemide 20 mg 90 pills prescribed on 10/03/16 has 30 pills left Acetamenophen 650 BID pf 60 pills prescribed on 10/22/16 has 35 pills left Mirtazapine 15 mg of 15 pills 1/2 at bedtime, 20 half pills left and one prescription from 10/03/16 has all 15 pills Celecoxib 20 mg 30 pills once a day prescribed on 10/17/16 has 23 left (should be 13 left) Risperidone 4mg 30 pills prescribed on 10/03/16 has 22 pills left Lyrica 100 mg BID 60 pills prescribed on 10/18/16 has 30 left (only complient medication)
--- NOTE | 2016-11-03 12:00 | NUR ---
NURSING NOTE: ASSUMED CARE OF PT AT THIS TIME, PT SITTING IN CHAIR EATING HER LUNCH, PT DENIES COMPLAINTS, FSG 154, COVERED PER SLIDING SCALE. CHAIR ALARM IN PLACE AND WORKING, NEEDS IN REACH, PT VERBALIZES UNDERSTANDING TO CALL FOR ASSIST. CONT TO MONITOR.
--- NOTE | 2016-11-03 13:20 | Patient Discharge Instructions ---
Discharge Instructions General Discharge Information You were seen/treated for: Increasing confusion Acute on chronic low back pain Special Instructions: Please follow up with Dr. Connors within 7 days of discharge. Please take all medications as directed. Please follow up with [facility] PSYCHIATRIC THERAPIST tomorrow 11/07/16 at 330 pm. Diet Recommended Diet: Diabetic Activity Activity Self Limited: Yes Acute Coronary Syndrome Inclusion Criteria At DC or during hospital stay patient has or had the following: ACS DIAGNOSIS No Discharge Core Measures Meds if any: Prescribed or Continued at Discharge Meds if any: NOT Prescribed or Continued at Discharge Congestive Heart Failure Inclusion Criteria At DC or during hospital stay patient has or had the following: CHF DIAGNOSIS No Discharge Core Measures Meds if any: Prescribed or Continued at Discharge Meds if any: NOT Prescribed or Continued at Discharge Cerebrovascular accident Inclusion Criteria At DC or during hospital stay patient has or had the following: CVA/TIA Diagnosis No Discharge Core Measures Meds if any: Prescribed or Continued at Discharge Meds if any: NOT Prescribed or Continued at Discharge Venous thromboembolism Inclusion Criteria VTE Diagnosis No VTE Type NONE VTE Confirmed by (Test) NONE Discharge Core Measures - Per Current guidelines, there needs to be overlap - treatment for the first 5 days of Warfarin therapy. - If discharged on Warfarin prior to 5 days of - overlap therapy, the patient will need to be - assessed for post discharge needs including - *Post discharge parental anticoagulation - *Warfarin and/or parental anticoagulation education - *Follow up date to check INR post discharge At least 5 days overlap therapy as Inpatient No Meds if any: Prescribed or Continued at Discharge Note: Overlap Therapy is Warfarin and Anticoagulant Meds if any: NOT Prescribed or Continued at Discharge
[2016-11-03 15:51] VITALS: BP 162/74
[2016-11-03 23:40] VITALS: BP 129/53
[2016-11-04 07:37] VITALS: BP 130/60
--- NOTE | 2016-11-04 07:40 | NUR ---
ACCUCHECK 64; PATIENT STATES "I THOUGHT MY SUGAR WAS LOW, I AM VERY TIRED"; PATIENT GIVEN APPLE JUICE AND PEANUT BUTTER CRACKERS WHICH SHE IMMEDIATELY BEGAN EATING; DR Bill GOODE NOTIFIED AND AWARE; PER DR GOODE CONTINUE TO MONITOR AND RECHECK ACCUCHECK; PER DR GOODE SHE WILL LIKELY ADJUST LEVEMIR DOSE; WILL CONTINUE TO MONITOR PATIENT;
--- NOTE | 2016-11-04 08:05 | PN- Housestaff ---
See Addendum Subjective Follow-up For: Encephalopathy IDDM with hypoglycemia Subjective: Patient seen and examined at bedside this AM. She reports increased lethargy and worsening of her bilateral lower extremity burning neuropathy. She endorses the current lyrica dose is not helping. Review of Systems Constitutional: Reports: malaise. Denies: chills, fever. EENTM: Denies: hearing changes, nasal congestion, throat pain. Cardiovascular: Denies: chest pain, palpitations. Respiratory: Denies: cough, short of breath. Gastrointestinal: Denies: abdominal pain, bloating, constipation, diarrhea, nausea, vomiting. Genitourinary: Denies: dysuria. Musculoskeletal: Reports: back pain (Chronic). Skin: Denies: erythema, rash. Neurological/Psychological: Reports: numbness, paresthesia, tingling. Denies: confusion, headache. Hematologic/Endocrine: Denies: bruising, bleeding. Immunologic/Allergic: Denies: splenectomy. Objective Last 24 Hrs of Vital Signs/I&O Vital Signs Date Time Temp Pulse Resp B/P Pulse O2 O2 Flow FiO2 Ox Delivery Rate 11/04 0737 98.4 66 20 130/60 97 Room Air 11/03 2340 97.9 69 18 129/53 98 Room Air 11/03 1551 98.2 71 19 162/74 98 11/03 1415 Room Air 11/03 0906 90 132/56 Intake & Output 11/04 1600 11/04 0800 11/04 0000 Intake Total 360 600 Output Total 600 350 Balance -240 250 Intake, Oral 360 600 Number 1 Bowel Movements Output, Urine 600 350 Physical Exam General Appearance: Alert, Oriented X3, Cooperative, No Acute Distress Skin: No Rashes, No Significant Lesion HEENT: Atraumatic, Mucous Membr. moist/pink Neck: Supple Lymphatic: Cervical nl Cardiovascular: Regular Rate, Normal S1, Normal S2 Lungs: Clear to Auscultation, Normal Air Movement Abdomen: Normal Bowel Sounds, Soft, No Tenderness, No Hepatospenomegaly, No Masses Neurological: Normal Speech, Normal Tone Extremities: No Clubbing, No Cyanosis, No Edema Vascular: Pulses Symmetrical Current Medications: Current Medications Sig/Bertha Start time Last Medication Dose Route Stop Time Status Admin Acetaminophen 650 MG Q6P PRN 11/02 2130 AC 11/04 PO 0520 Aspirin 81 MG DAILY 11/03 1000 AC 11/03 PO 0906 Atenolol 25 MG DAILY 11/03 1000 AC 11/03 PO 0906 Atropine Sulfate 1 GTT 11/05 1000 AC OPH Brimonidine Tartrate 1 GTT BID 11/03 1000 AC 11/03 OPH 2113 Cholecalciferol 2,000 IU DAILY 11/03 1000 AC 11/03 PO 0906 Cyanocobalamin 1,000 MCG DAILY 11/03 1000 AC 11/03 PO 0913 Fish Oil 1,050 MG DAILY 11/03 1000 AC 11/03 PO 0906 Furosemide 20 MG DAILY 11/03 1000 AC 11/03 PO 0906 Ibuprofen 600 MG Q6P PRN 11/02 2130 AC 11/04 PO 0244 Insulin Aspart 0 TIDAC 11/03 0800 AC 11/03 SC 1703 Insulin Detemir 8 UNITS AT BEDTIME 11/04 2200 AC SC Insulin Detemir 10 UNITS AT BEDTIME 11/03 2200 DC 11/03 SC 2113 Insulin Detemir 12 UNITS AT BEDTIME 11/02 2330 DC 11/03 SC 0024 Magnesium Oxide 400 MG BID 11/03 1000 AC 11/03 PO 2112 Omeprazole 40 MG DAILY AC 11/03 0700 AC 11/04 PO 0649 Prednisolone 1 GTT 11/05 1000 AC OPH Pregabalin 100 MG TID 11/02 2200 AC 11/03 PO 2112 Risperidone 6 MG QPM 11/02 2300 AC 11/03 PO 2112 Timolol Maleate 1 GTT BID 11/03 1000 AC 11/03 OPH 2113 Orders Radiology Findings: EXAMINATION: XR LUMBAR SPINE CLINICAL INFORMATION: Worsening back pain. Assess for fracture. COMPARISON: CT of the abdomen and pelvis from 11/23/2015 TECHNIQUE: Single frontal view of the lumbar spine FINDINGS: There is mild height loss involving L2, which is grossly similar to the prior study accounting for differences in modality. L5 laminectomy is redemonstrated. There is a mild dextroconvex scoliosis. There is an equivocal new mild compression deformity involving T11 and possibly T10 as well, neither of which is well assessed on this single frontal view. There is moderate degenerative change of the SI joints. Bilateral total hip replacements are partially visualized. The bowel gas pattern is nonobstructive. There are scattered phleboliths in the pelvis. IMPRESSION: 1. Stable appearing compression deformity involving L2, comparing across modalities. 2. Equivocal interval compression deformities of T10 and T11, not ideally assessed on this single frontal view. 3. Mild dextroconvex lumbar scoliosis. Remote L5 laminectomy. Head CT: IMPRESSION: No acute intracranial pathology. CXR: IMPRESSION: No acute cardiopulmonary findings. Assessment/Plan Assessment: Ms. Garg is a pleasant 76 year old female with PMH macular degeneration with legal bilateral blindess, HTN, IDDM, neuropathy, chronic back pain, and late onset paranoid schizophrenia who presented to the ED with her granddaughter after concerns for weakness, increasing confusion and low back pain (acute on chronic). Patient was admitted to the general medicine floor and the following is the management: 1. Encephalopathy * DDx: delirium vs dementia, polypharmacy, recent increase in lyrica dose, dementia, hypoglycemia/innapropriate insulin dose, opiod overdose (tylenol #3) * Vit D low, Vit B12/TSH/FT4 normal * MMSE done 11/03/16 shows no impairment (lost 1 point for recall, unable to WORLD backwards), of note, she could not perform visual tasks (3 points) * PT/OT consulted, PT suggested patient is stable for discharge home * Social work consult placed, will f/u recommendations * Florecita (granddaughter) brought patient's home meds and there are several medications patient appears to not be compliant with (see student report from for full details) * Patient will likely benefit from STR/ECF or close monitoring home care as she is unable to take medications appropriately * Continue Vit B12, fish oil, mg ox * Not available: karl a/c/e/zinc/copper, nacl eye drop 2. Acute on chronic LBP * Lumbar XR shows stable appearing L2 compression deformity, no new abnormalities noted * Lyrica 100 mg PO TID resumed (did not resume recently increased dose of 150 TID), however patient is reporting severe lower extremity neuropathy, will consider increasing to 150 TID * NSAIDs and tylenol for pain, HOLD tylenol #3 in setting of encephalopathy, hold any opiates and sedatives * PPI started * HOLD celecoxib 200 mg for now in setting of NSAIDs being ordered for pain 3. Hyperkalemia * K of 5.2 on admission * Peaked T wave in lead V2 * Hold K supplement for now, monitor BEP daily (awaiting results from today's lab work) 4. Hyponatremia * Na of 134 on admission * Continue to monitor BEP (awaiting today's results to determine management) 5. IDDM * Hold oral hypoglycemics * Continue accuchecks TIDAC/HS * NSS TIDAC/HS * Levemir 12 U decreased from 10 to 8 U SC as patient was hypoglycemic again this AM to a glucose of 64 this AM 6. HTN * Continue aspirin 81 mg, atenolol 25 mg, lasix 20 mg * Monitor vitals Q shift 7. Macular degeneration * Continue atropine sulfate, brimonidine/timolol, prednisolone acetate eye drops 8. Schizophrenia * Continue risperidone 6 mg PO QPM DNR/DNI Diet: Heart healthy DVTP: mechanical and pharm Mild pain pathways- NSAIDS, hold Tylenol #3 Problem List: 1. Noncompliance with medication regimen 2. Altered mental status 3. Leg pain 4. History of - depression 5. History of - hypertension 6. Diabetes mellitus Pain Ratin Pain Location: Bilateral lower extremities burning pain (neuropathy) Pain Goal: Pain 4 or less Pain Plan: Lyrica for peripheral neuropathy, Motrin for moderate/severe pain, tylenol for mild pain. Tomorrow's Labs & Rationales: Awaiting lab results from today to determine necessary labs for tomorrow. DVT/Prophylaxis: mechanical
[2016-11-04 08:57] LABS: ABSOLUTE BASOPHIL COUNT 0 /CUMM (0.0-0.2); ABSOLUTE EOSINOPHIL COUNT 0.3 /CUMM (0.0-0.7); ABSOLUTE GRANULOCYTE CT 4.6 /CUMM (1.4-6.5); ABSOLUTE LYMPH COUNT 1.9 /CUMM (1.2-3.4); ABSOLUTE MONOCYTE COUNT 0.8 /CUMM (0.10-0.60); BASOPHIL % 0.5 % (0.0-2.0); EOSINOPHIL % 3.3 % (0-5); GRANULOCYTE % 60.6 % (42.2-75.2); HEMATOCRIT 31.5 % (37-47); MEAN CORPUSCULAR HGB 29.2 PG (27.0-31.0); MEAN CORPUSCULAR HGB CONC 33.4 G/DL (33.0-37.0); MEAN CORPUSCULAR VOLUME 87.6 FL (81.0-99.0); PLATELET COUNT 200 /CUMM (130-400); RBC DISTRIBUTION WIDTH 14.9 % (11.5-14.5); RED BLOOD CELL CT 3.59 /CUMM (4.20-5.40); WHITE BLOOD CELL COUNT 7.7 /CUMM (4.8-10.8)
--- NOTE | 2016-11-04 09:23 | NUR ---
PATIENT WASHED AND BRUSHED UPPER AND LOWER DENTURES IN BATHROOM; PATIENT BATHED; SKIN INTACT; SANDEEP COAT CHANGED; LINENS CHANGED; PATIENT NOW SITTING IN CHAIR WITH CHAIR ALARM IN PLACE; WILL CONTINUE TO MONITOR PATIENT;
[2016-11-04 15:59] VITALS: BP 146/65
--- NOTE | 2016-11-04 21:11 | Event Note ---
Event Note Event Note: SITUATION Patient suddenly became unresponsive with asymmetric pupils and desaturation Brief: patient is a 76 YO F admitted with AMS, jason found to be unresponsive to commands. She was deep in sleep and woke up with sternal rub. Thoughts about lyrica overdose are also made at the time of admission. However her lyrica 150mg TID restarted today, last dose being at 4pm. She opened her eyes however not oriented which is her baseline. Upon examination * Neuro exam is signficant for asymmetric pupils - otherwise unremarkable * So requested a stat CT Assessment and plan * A head CT along trop and EKG are requested stat which were negative * Discontinued night dose of lyrica * reconsider dose of lyrica - as per primary team.
[2016-11-04 21:20] VITALS: BP 132/54
--- NOTE | 2016-11-04 22:20 | CT SCAN REPORT ---
EXAMINATION: CT HEAD WITHOUT CONTRAST CLINICAL INFORMATION: Asymmetrical pupillary dilatation, left greater than right. COMPARISON: Noncontrast head CT 11/02/2016. TECHNIQUE: Contiguous axial imaging was performed from the skull base to vertex without intravenous administration of contrast. DLP: 600 mGy-cm. FINDINGS: Mild parenchymal volume loss with proportional prominence of the sulci and ventricles. No acute intracranial abnormality. No acute intracranial hemorrhage, mass or mass effect or abnormal extra-axial fluid collections. The density within the dural venous sinuses is within normal limits. The ventricles are normal in size, without hydrocephalus. There are no focal areas of hypoattenuation within a vascular distribution to suggest acute transcortical ischemia. The basilar cisterns are patent. No acute calvarial abnormality is identified. No visible abnormality of the bilateral orbits. Soft tissues appear unremarkable. The imaged paranasal sinuses and mastoid air cells are well aerated. IMPRESSION: No acute intracranial abnormality.
[2016-11-04 23:35] VITALS: BP 133/55
--- NOTE | 2016-11-04 23:47 | NUR ---
NURSING NOTE; LATE ENTRY; AROUND 2049 THIS RN WENT IN TO CHECK ON PT. THIS RN FOUND PT TO BE UNRESPONSIVE. THIS RN CALLED #[phone] FOR A RAPID RESPONSE. SEE RAPID RESPONSE SHEET. VITAL SIGNS STABLE, BLOD PRESSURE - 132/54, PULSE - 76, TEMP - 99.3, RESPIRATIONS - 16, SPO2 - 97% ON RA. BLOOD GLUCOSE - 213. STAT EKG AND BLOOD WORK COMPLETED. CT OF HEAD ALSO ORDERED AND COMPLETE. BLOOD WORK AND EKG ALL NORMAL WELL CT OF HEAD. WILL CONTINUE TO MONITOR.
--- NOTE | 2016-11-05 06:58 | PN- Housestaff ---
See Addendum Subjective Follow-up For: Altered mental status Polypharmacy Inappropriate medication administration Acute on chronic LBP Hyperkalemia Subjective: Patient seen and examined at bedside this AM. She continues to endorse lethargy and believe that lyrica, regardless of the dose, is associated with her being tired. She has also tried gabapentin in the past which did not cause her to be as drowsy. On discussion regarding discharge planning with patient, she is finally amenable to home health services as there is concern she is unintentionally taking her medications inappropriately. Review of Systems Constitutional: Reports: malaise. Denies: chills, fever. EENTM: Denies: blurred vision, visual changes, hearing changes, nasal congestion. Cardiovascular: Denies: chest pain, palpitations. Respiratory: Denies: cough, short of breath. Gastrointestinal: Denies: abdominal pain, bloating, constipation, diarrhea. Genitourinary: Denies: dysuria, frequency, hematuria. Musculoskeletal: Reports: back pain. Skin: Denies: change in skin color, change in hair/nails, lesions. Neurological/Psychological: Denies: ataxia, confusion, headache, tremors. Hematologic/Endocrine: Denies: bruising, bleeding. Immunologic/Allergic: Denies: splenectomy. Objective Last 24 Hrs of Vital Signs/I&O Vital Signs Date Time Temp Pulse Resp B/P Pulse O2 O2 Flow FiO2 Ox Delivery Rate 11/05 0912 68 112/58 11/05 0801 97.5 74 20 142/62 96 Room Air 11/04 2335 98.0 68 18 133/55 95 Room Air 11/04 2120 99.3 76 16 132/54 97 Room Air 11/04 1559 97.6 64 19 146/65 98 Intake & Output 11/05 1600 11/05 0800 11/05 0000 Intake Total 650 Output Total 300 Balance 350 Intake, Oral 650 Output, Urine 300 Physical Exam General Appearance: Alert, Oriented X3, Cooperative, No Acute Distress Skin: No Rashes, No Significant Lesion HEENT: Atraumatic, Mucous Membr. moist/pink Neck: Supple, No JVD Lymphatic: Axillary nl Cardiovascular: Regular Rate, Normal S1, Normal S2 Lungs: Clear to Auscultation, Normal Air Movement Abdomen: Normal Bowel Sounds, Soft, No Tenderness, No Hepatospenomegaly, No Masses Neurological: Normal Speech, Normal Tone Extremities: No Clubbing, No Cyanosis, No Edema Vascular: Pulses Symmetrical Current Medications: Current Medications Sig/Bertha Start time Last Medication Dose Route Stop Time Status Admin Acetaminophen 650 MG Q6P PRN 11/02 2130 AC 11/04 PO 0520 Aspirin 81 MG DAILY 11/03 1000 AC 11/05 PO 0908 Atenolol 25 MG DAILY 11/03 1000 AC 11/05 PO 0912 Atropine Sulfate 1 GTT 11/05 1000 AC 11/05 OPH 0913 Brimonidine Tartrate 1 GTT BID 11/03 1000 AC 11/05 OPH 0909 Cholecalciferol 2,000 IU DAILY 11/03 1000 AC 11/05 PO 0908 Cyanocobalamin 1,000 MCG DAILY 11/03 1000 AC 11/05 PO 0908 Fish Oil 1,050 MG DAILY 11/03 1000 AC 11/05 PO 0909 Furosemide 20 MG DAILY 11/03 1000 AC 11/05 PO 0908 Gabapentin 100 MG Q8 11/05 1400 AC PO Ibuprofen 600 MG .STK-MED ONE 11/04 1611 DC PO 11/04 1612 Ibuprofen 600 MG Q6P PRN 11/02 2130 AC 11/05 PO 0909 Insulin Detemir 8 UNITS AT BEDTIME 11/04 2200 AC 11/04 SC 2215 Magnesium Oxide 400 MG BID 11/03 1000 AC 11/05 PO 0908 Omeprazole 40 MG DAILY AC 11/03 0700 AC 11/04 PO 0649 Prednisolone 1 GTT 11/05 1000 AC 11/05 OPH 0909 Pregabalin 100 MG TID 11/05 1000 CAN PO Pregabalin 150 MG TID 11/04 1000 DC 11/04 PO 1609 Risperidone 6 MG QPM 11/02 2300 AC 11/04 PO 2214 Timolol Maleate 1 GTT BID 11/03 1000 AC 11/05 OPH 0909 Last 24 Hrs of Lab/Cipriano Results Last 24 Hrs of Labs/Mics: Laboratory Tests 11/05/16 0635: Anion Gap 6, Estimated GFR > 60, BUN/Creatinine Ratio 28.3 H 11/04/163: Troponin I 0.03 Orders Radiology Findings: EXAMINATION: CT HEAD WITHOUT CONTRAST CLINICAL INFORMATION: Asymmetrical pupillary dilatation, left greater than right. COMPARISON: Noncontrast head CT 11/02/2016. TECHNIQUE: Contiguous axial imaging was performed from the skull base to vertex without intravenous administration of contrast. DLP: 600 mGy-cm. FINDINGS: Mild parenchymal volume loss with proportional prominence of the sulci and ventricles. No acute intracranial abnormality. No acute intracranial hemorrhage, mass or mass effect or abnormal extra-axial fluid collections. The density within the dural venous sinuses is within normal limits. The ventricles are normal in size, without hydrocephalus. There are no focal areas of hypoattenuation within a vascular distribution to suggest acute transcortical ischemia. The basilar cisterns are patent. No acute calvarial abnormality is identified. No visible abnormality of the bilateral orbits. Soft tissues appear unremarkable. The imaged paranasal sinuses and mastoid air cells are well aerated. IMPRESSION: No acute intracranial abnormality. Assessment/Plan Assessment: Ms. Garg is a pleasant 76 year old female with PMH macular degeneration with legal bilateral blindess, HTN, IDDM, neuropathy, chronic back pain, and late onset paranoid schizophrenia who presented to the ED with her granddaughter after concerns for weakness, increasing confusion and low back pain (acute on chronic). Patient was admitted to the general medicine floor and the following is the management: 1. Encephalopathy * DDx: delirium vs dementia, polypharmacy, recent increase in lyrica dose, hypoglycemia/innapropriate insulin dose, opiod overdose (tylenol #3) * Vit D low, Vit B12/TSH/FT4 normal * MMSE done 11/03/16 shows no impairment (lost 1 point for recall, unable to WORLD backwards), of note, she could not perform visual tasks (3 points) * PT/OT consulted, PT suggested patient is stable for discharge home * Social work consult placed, will f/u recommendations * Florecita (granddaughter) brought patient's home meds and there are several medications patient appears to not be compliant with (see student report from for full details) * Patient will likely benefit from close monitoring home care as she is unable to take medications appropriately, case management aware as patient willing to have home health services * Continue Vit B12, fish oil, mg ox and vit d supplementation 2. Acute on chronic LBP * Lumbar XR shows stable appearing L2 compression deformity, no new abnormalities noted * Lyrica 100 mg PO TID discontinued as patient had a rapid response last night 5 hours after receiving lyrica (CT head at that time negative) * We will try gabapentin 100 mg TID for peripheral neuropathy * NSAIDs and tylenol for pain, HOLD tylenol #3 in setting of encephalopathy, hold any opiates and sedatives * PPI started * HOLD celecoxib 200 mg for now in setting of NSAIDs being ordered for pain 3. Hyperkalemia * K of 5.2 on admission, currently 4.2 * Peaked T wave in lead V2 on admission EKG * Hold K supplement for now, monitor BEP daily 4. Hyponatremia * Na of 134 on admission, currently 138 * Continue to monitor BEP 5. IDDM * Hold oral hypoglycemics * Continued accuchecks TIDAC/HS * Discontinued NSS TIDAC/HS as patient was hypoglycemic the last 2 days * Levemir switched to 8U SC, will monitor FSGs closely and continue to adjust regimen as needed * HgA1C ordered for today, will f/u results 6. HTN * Continue aspirin 81 mg, atenolol 25 mg, lasix 20 mg * Monitor vitals Q shift 7. Macular degeneration * Continue atropine sulfate, brimonidine/timolol, prednisolone acetate eye drops 8. Schizophrenia * Continue risperidone 6 mg PO QPM DNR/DNI Diet: Heart healthy DVTP: mechanical and pharm Mild pain pathways- NSAIDS, hold Tylenol #3 Problem List: 1. Noncompliance with medication regimen 2. Back pain 3. Leg pain 4. Altered mental status 5. Schizophrenia 6. Diabetes mellitus Pain Ratin Pain Location: Low back bilaterally as well as bilateral lower extremity burning pain. Pain Goal: Pain 4 or less Pain Plan: Gabapentin for peripheral neuropathy, motrin for moderate/severe pain and tylenol for mild pain. Tomorrow's Labs & Rationales: None.
[2016-11-05 08:01] VITALS: BP 142/62
--- NOTE | 2016-11-05 14:12 | Discharge Summary ---
Visit Information Visit Dates Admission Date: 11/02/16 Discharge Date: 11/06/16 Hospital Course Course Attending Physician: ARJUN YUAN MD Primary Care Physician: MARGARETH JUÁREZ MD Consulting Request: Consulting Specialty: Psychiatry Consulting Physician: Willard Schumacher APRN Reason for Consult: Reevaluation of psychotropic medications Hospital Course: Ms. 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 The patient was noted to be more forgetful at home and granddaughter had concerns for safety, specifically the increased lethargy with current pain management regimen. In the ED: Vital signs showed T 97.6, HR 67, RR 18, BP 130/60 and O2 saturation of 100% on RA. Labs showed WBC 5.8, normocytic anemia to 10.6/31.6, Plt 205, Na 134, K 5.2, Cl 101, HCO3 26, BUN 18, Cre 0.6, Glu 106, lactic acid 1.6, AST/ALT WNL, troponin <0.01, Vit B12 949, Vit D low to 21.9, TSH 3.04, FT4 1.19. UA was WNL. Urine toxicology showed >4,000 for opiates. CXR was done and showed no abnormality. Head CT was also negative for acute intracranial pathology. Lumbar spine XRay showed stable compression deformity of L2 and T10/T10 equivocal compression deformities. Mild dextroconvex lumbar scoliosis. EKG showed NSR with HR 66, peak T wave on V2. Patient was admitted to the general medicine floor and the following was the management: 1. Encephalopathy: Patient remained AAOx3 with no acute delirium/abnormality noted on assessment. On admission, several medications were held, including tylenol #3, celecoxib, and lyrica was started at a lower dose of 100 mg TID instead of 150 mg TID. Initial workup for encephalopathy was to rule out toxic/ reversible causes of altered mental status. Electrolytes (Vit B12, TSH, FT4) were normal and with negative UA/CT/CXR, no identifiable causes of an infectious etiology found. Mini mental status examination was done and scored out of 27 points (as patient is legally blind and unable to perform visual tasks). Result was 24/27 which represents no impairment. On 11/03, patient's granddaughter was able to bring in the patient's home medications and these were counted. The counting showed that there were several medications the patient had not been taking/non-compliant with, though tylenol #3 appeared to be consumed the most. This raised into question safety of medication administration at home in the setting of being legally blind, and case management was consulted to set up home health services for discharge. Patient then had a rapid response on 11/04/16 5 hours after housestaff increased lyrica to 150 mg TID due to persistent and severe bilaterally lower extremity burning pain. Lyrica was then discontinued and patient was started on low dose gabapentin at 100 mg TID. Psychiatric consult was then placed due to concerns about evening risperidone dose (high at 6 mg QPM). Psychiatric suggested decreasing this to 4 mg as 6 mg may cause excess lethargy and confusion. Mirtazapine 7.5 mg PO was also added at bedtime. Celecoxib and tylenol #3 were discontinued at discharge. NEW/CHANGED medications include the following: mirtazapine 7.5 mg QPM, 4 mg risperidone QPM, ultram 25 mg Q6P for severe pain (#10) and gabapentin 300 mg TID. Of note, insulin levemir was also decreased TO 8 U SC as patient had noted hypoglycemia on 2 mornings which may be contributing to her altered mental status. 2. Acute on chronic low back pain in the setting of chronic back pain disorder: Patient had a lumbar xray done on admission that showed a stable appearing L2 compression deformity and equivocal compression deformity of T10/11. Tylenol #3 was held as was celecoxib and patient was started on NSAIDs for pain. PT consult was placed to mobilize patient and suggested that patient is safe to be discharged home with her cane/walker dependance. Ultram 25 mg PO Q6P was added due to severe pain not relieved with tylenol. Lyrica was discontinued as discussed above and gabapentin ordered for severe peripheral neuropathy. She was instead placed on 300 mg TID PO gabapentin for peripheral neuropathy. Patient should follow up closely with her PCP Dr. Juárez who will consider referral to a chronic pain specialist for management of patient's chronic low back pain failing prior outpatient therapy 3. Hyperkalemia: Patient had potassium level of 5.2 on admission. This was associated with Peaked T wave in lead V2 on admission EKG. She was given IV fluids and BEP was trended daily. Potassium quickly decreased to WNL and no further events occured. 4. Hyponatremia: Na level on admission was noted to be 134. BEP was trended and Na level was 138 on discharge. PCP should consider repeat labs within the month to monitor Na and K levels. 5. IDDM: Patient had her home medications held on admission and she was placed on a low dose novolog sliding scale as well as 12 U SC levemir at bedtime. Patient had 2 hypoglycemic episodes, both occuring in the AM, during her stay. This prompted the discontinuation of her low dose NSS and the decrease of her levemir to 8U SC at bedtime. Patient will be discharged on 8 U SC levemir for her sole anti-diabetic regimen. Of note, HgA1C was checked and found to be 7.0. PCP should consider close monitoring of her diabetic regimen/FSGs and adjust medications as needed. 6. HTN: Patient had her vital signs monitored every shift and she was continued on her home aspirin 81 mg, atenolol 25 mg, lasix 20 mg. She will continue these upon discharge. 7. Macular degeneration: Patient was continued on her atropine sulfate, brimonidine/timolol and prednisolone acetate eye drops. Continue these upon discharge. 8. Major depressive disorder with psychotic features: Patient was initially started on her home risperidone dose of 6 mg PO QPM. Psychiatric consult was placed due to concerns of this high dose and its possible side effect resulting in sedation/lethargy. Psychiatry suggested decreasing this to 4 mg PO QPM and adding mirtazapine 7.5 mg PO QPM for insomina. She was discharged home on both of these medications. She was set up with an appointment to see her psychiatrist SANTIAGO Hill the day after discharge, 11/07/16 at 3:30 pm. She should have close follow up with SANTIAGO Hill. 9. Code: DNR/DNI 10. DVTP: Mechanical ALPS Allergies: Coded Allergies: oxycodone (From PERCOCET) (Intermediate, NAUSEA 11/02/16) Significant Procedures: EXAMINATION: CT HEAD WITHOUT CONTRAST CLINICAL INFORMATION: Asymmetrical pupillary dilatation, left greater than right. COMPARISON: Noncontrast head CT 11/02/2016. TECHNIQUE: Contiguous axial imaging was performed from the skull base to vertex without intravenous administration of contrast. DLP: 600 mGy-cm. FINDINGS: Mild parenchymal volume loss with proportional prominence of the sulci and ventricles. No acute intracranial abnormality. No acute intracranial hemorrhage, mass or mass effect or abnormal extra-axial fluid collections. The density within the dural venous sinuses is within normal limits. The ventricles are normal in size, without hydrocephalus. There are no focal areas of hypoattenuation within a vascular distribution to suggest acute transcortical ischemia. The basilar cisterns are patent. No acute calvarial abnormality is identified. No visible abnormality of the bilateral orbits. Soft tissues appear unremarkable. The imaged paranasal sinuses and mastoid air cells are well aerated. IMPRESSION: No acute intracranial abnormality. EXAMINATION: XR LUMBAR SPINE CLINICAL INFORMATION: Worsening back pain. Assess for fracture. COMPARISON: CT of the abdomen and pelvis from 11/23/2015 TECHNIQUE: Single frontal view of the lumbar spine FINDINGS: There is mild height loss involving L2, which is grossly similar to the prior study accounting for differences in modality. L5 laminectomy is redemonstrated. There is a mild dextroconvex scoliosis. There is an equivocal new mild compression deformity involving T11 and possibly T10 as well, neither of which is well assessed on this single frontal view. There is moderate degenerative change of the SI joints. Bilateral total hip replacements are partially visualized. The bowel gas pattern is nonobstructive. There are scattered phleboliths in the pelvis. IMPRESSION: 1. Stable appearing compression deformity involving L2, comparing across modalities. 2. Equivocal interval compression deformities of T10 and T11, not ideally assessed on this single frontal view. 3. Mild dextroconvex lumbar scoliosis. Remote L5 laminectomy. EXAMINATION: XR PORTABLE CHEST CLINICAL INFORMATION: Weakness, URI symptoms COMPARISON: 05/08/2016 TECHNIQUE: Portable view of the chest was obtained. FINDINGS: The lungs are clear with no focal consolidation. No evidence of pneumothorax, pulmonary edema, or pleural effusions. Cardiac size is within normal limits. Calcification is present at the aortic arch. No acute osseous findings are seen. IMPRESSION: No acute cardiopulmonary findings. Disposition Summary Disposition Principal Diagnosis: Altered mental status likely secondary to medication interaction and unintentional overdose of tylenol #3 Peripheral neuropathy Acute on chronic low back pain Hypogylcemia in the setting of IDDM Additional Diagnosis: Hyperkalemia Hyponatremia HTN Macular degeneration with legal blindness Major depressive disorder with psychotic features Discharge Disposition: home health services Discharge Instructions General Discharge Information Code Status: Do Not Resucitate/Intubat Patient's Diet: Consistent carbogydrate 2. Patient's Activity: Cane dependant. Follow-Up Instructions/Appts: Please follow up with Dr. Juárez within 7 days of discharge. Please take all medications as directed. Please follow up with [place] [facility] WHEEL LOADER OPERATOR tomorrow 11/07/16 at 330 pm. Medications at Discharge Discharge Medications: Stop taking the following medications: Tylenol With Codeine (Tylenol With Codeine #3 Tablet) 1 TAB TAB ORAL TWICE DAILY as needed for cough Qty = 1 Potassium Chloride (Potassium Chloride) 20 MEQ TAB.ER.PRT ORAL DAILY Insulin Glargine,Hum.rec.anlog (Lantus Solostar) (Unknown Strength) INSULN.PEN Inject into fatty tissue Every night Insulin Aspart, Recombinant (Novolog Flexpen) 100 UNIT/1 ML INSULN.PEN Inject into fatty tissue THREE TIMES DAILY Qty = 15 Celecoxib (Celecoxib) 200 MG CAPSULE ORAL DAILY Qty = 30 Risperidone (Risperdal) 3 MG TABLET ORAL Every night Pregabalin (Lyrica) 150 MG CAPSULE ORAL THREE TIMES DAILY Continue taking these medications: VIT A/VIT C/VIT E/ZINC/COPPER (Preservision Areds Softgel) 1 SGL SGL 1 SGL ORAL TWICE DAILY Comments: NOT GIVEN INPATIENT Aspirin (Ecotrin) 81 MG ECT 1 Tablet ORAL DAILY Comments: Last Taken: 03/03/16 Time:9am Cyanocobalamin (Vitamin B-12) 1,000 MCG TAB 1 Tablet ORAL DAILY Comments: Last Taken:03/03/16 Time:9am MAGNESIUM OXIDE (Magox 400) 241.3 MG TAB 1 Tablet ORAL TWICE DAILY Qty = 60 Comments: NOT GIVEN INPATIENT Fish Oil (Fish Oil Concentrate) 1,000 MG SGL 1 SGL ORAL DAILY Comments: Last Taken:03/03/16 Time:9am Prednisolone Acetate (Prednisolone Acetate) 10 ML NATALIA 1 DROP In the eye SATURDAY, SATURDAY AND SATURDAY Comments: not taken Atropine Sulfate (Atropine Care) 15 ML FLACA 1 DROP In the eye SATURDAY, SATURDAY AND SATURDAY Comments: NOT GIVEN INPATIENT Atenolol (Atenolol) 25 MG TAB 25 Milligram ORAL DAILY Comments: Last Taken:03/03/16 Time:9am Furosemide (Furosemide) 20 MG TABLET 1 Tablet ORAL DAILY Sodium Chloride (Ariane-128) 2 % DROPS 1 DRP OPHTHALMIC THREE TIMES DAILY Brimonidine Tartrate/Timolol (Combigan Eye Drops) 0.2 %-0.5 % DROPS 1 DRP OPHTHALMIC TWICE DAILY Start taking the following new medications: Gabapentin (Gabapentin) 100 MG CAPSULE 3 Capsule ORAL THREE TIMES DAILY Qty = 90 No Refills Comments: Last Taken: 11/06/16 Time: 6AM Risperidone (Risperidone) 4 MG TABLET 1 Tablet ORAL Every night Qty = 30 No Refills Comments: Last Taken: 11/05/16 Time: 2200PM Mirtazapine (Mirtazapine) 7.5 MG TABLET 1 Tablet ORAL Every night Qty = 30 No Refills Comments: Last Taken: 11/05/16 Time: 2200PM Tramadol HCl (Tramadol HCl) 50 MG TABLET 0.5 Tablet ORAL EVERY SIX HOURS NEEDED as needed for Severe Pain 7-10 Qty = 10 No Refills Comments: Last Taken: 11/06/16 Time: 6AM Insulin Detemir (Levemir Flextouch) 100 UNIT/ML (3 ML) INSULN.PEN 8 Units Inject into fatty tissue Every night Qty = 1 No Refills Comments: Last Taken: 11/05/16 Time: 2200PM Copies To: FRANCK HEBERT,FABIOLA SCHMIDT APRN, MD Review Statement Documenting Attending: KWABENA HEBERT,ARJUN Bain Other Findings: Agree with the discharge plan. Pt being dced home with home care . Lyrica was stopped and was started on neurontin. Levemir dose was decreased to 8U qhs and risperidone was changed to 4mg qhs and was started on remeron 7.5 mg qhs. d/w pt the medication changes prior to discharge.
[2016-11-05] MEDS ORDERED: GABAPENTIN100 M2 PO (15:28)
[2016-11-05] MEDS ORDERED: LEVEMIR FL100 UNIT/1 SC (15:28)
[2016-11-05 15:44] VITALS: BP 130/68
--- NOTE | 2016-11-05 17:42 | Cons- Psychiatry ---
Psychiatric Consult Date of Consult: 11/05/16 Reason for Consult: "Re-evaluation of current psychiatric medications for late onset schizophrenia in the setting of altered mental status" [NOTE: The patient has been diagnosed with major depressive disorder with psychotic features, not schizophrenia.] History of Present Illness: This is a 76-year-old female who was brought to the hospital by her granddaughter on 11/02/2016 at 1419 with increasing weakness, confusion and overall body pain, as well as lower leg edema for 3 days. The patient is followed at [facility] outpatient psychiatry by Angie Hill APRN, and was last seen in August 2016. The patient lives alone, and has refused offers of help in the home in the past. She is legally blind, secondary to macular degeneration. She has a supportive daughter and granddaughter. Allergies: Coded Allergies: oxycodone (From PERCOCET) (Intermediate, NAUSEA 11/02/16) Current Medications: Current Medications Sig/Bertha Start time Last Medication Dose Route Stop Time Status Admin Acetaminophen 1,000 MG Q6H PRN 11/05 1715 AC N/A 1 UNIT IV Acetaminophen 650 MG Q6P PRN 11/02 2130 AC 11/04 PO 0520 Aspirin 81 MG DAILY 11/03 1000 AC 11/05 PO 0908 Atenolol 25 MG DAILY 11/03 1000 AC 11/05 PO 0912 Atropine Sulfate 1 GTT 11/05 1000 AC 11/05 OPH 0913 Brimonidine Tartrate 1 GTT BID 11/03 1000 AC 11/05 OPH 0909 Cholecalciferol 2,000 IU DAILY 11/03 1000 AC 11/05 PO 0908 Cyanocobalamin 1,000 MCG DAILY 11/03 1000 AC 11/05 PO 0908 Fish Oil 1,050 MG DAILY 11/03 1000 AC 11/05 PO 0909 Furosemide 20 MG DAILY 11/03 1000 AC 11/05 PO 0908 Gabapentin 100 MG Q8 11/05 1400 AC 11/05 PO 1522 Ibuprofen 600 MG .STK-MED ONE 11/05 0903 DC PO 11/05 0904 Ibuprofen 600 MG Q6P PRN 11/02 2130 AC 11/05 PO 1526 Insulin Detemir 8 UNITS AT BEDTIME 11/04 2200 AC 11/04 SC 2215 Magnesium Oxide 400 MG BID 11/03 1000 AC 11/05 PO 0908 Mirtazapine 7.5 MG AT BEDTIME PRN 11/05 1745 AC PO Omeprazole 40 MG DAILY AC 11/03 0700 AC 11/04 PO 0649 Patient Medication 1 ED .STK-MED ONE 11/05 1358 DC Teaching ED 11/05 1359 Prednisolone 1 GTT 11/05 1000 AC 11/05 OPH 0909 Pregabalin 100 MG TID 11/05 1000 CAN PO Pregabalin 150 MG TID 11/04 1000 DC 11/04 PO 1609 Risperidone 4 MG AT BEDTIME 11/05 2200 AC PO Risperidone 6 MG QPM 11/02 2300 DC 11/04 PO 2214 Timolol Maleate 1 GTT BID 11/03 1000 AC 11/05 OPH 0909 Tramadol HCl 25 MG Q6-PRN PRN 11/05 1715 AC 11/05 PO 1934 Past History Past Medical History Neurological: NEUROPATHY EENT: glaucoma, macular degeneration, LEGALLY BLIND - + PERIPHERAL VISION Cardiovascular: hypertension, 79% CAROTID OCCULSION Respiratory: NONE Gastrointestinal: NONE Hepatic: NONE Renal: NONE Musculoskeletal: NONE Psychiatric: major depressive disorder with psychotic features Endocrine: DIABETES (TYPE 2) Blood Disorders: NONE Cancer(s): NONE MAT MACHINE OPERATOR/Reproductive: NONE Past Surgical History Surgical History: hip replacement, KNEE REPLACMENT Psychosocial History Strengths/Capabilities: Motivated for treatment Psychiatric Treatment History Psych Treatment Psychiatric Treatment Yes Inpatient Treatment Yes Outpatient Treatment Yes Location of Treatment [facility] Reason for Treatment Psychotic break Substance Use/Abuse History Drug Use/Abuse Substances Used/Abused No (denies) Assessment/Plan Mental Status Mental Status Exam: The patient is alert and oriented. She denies auditory or visual hallucinations , either here in the hospital or at home. She scales her current depression as 6/10, her current anxiety as 4/10; 10/10 would be the most severe in either case. The patient denies any feelings of distress, other than that caused by her pain. She states that her leg pain awakens her at 3 a.m., so she tries to get to bed early so that she can get approximately 6 hours of sleep per night. Lately, since starting pregabalin, she has been unable to get out of bed, due to her leg and foot pain. The patient reports that the pain started when she started the pregabalin/Lyrica, but did not report the symptoms to her prescriber and PCP, Dr. Connors. I spent approximately 5 minutes with the patient discussing how she needs to report side effects of medications to her providers; she verbalizes understanding. She denies suicidal ideation. Diffential Diagnosis: Major depressive disorder, moderate, recurrent, with psychotic features Chronic pain disorder Impression: Debi had been stable on risperidone 4 milligrams by mouth at bedtime, and the plan at outpatient psychiatry was to reduce this to 3 mg by mouth at bedtime, which will be addressed at her next appointment. She had also reported benefit from mirtazapine 7.5 mg PO as needed for insomnia. The patient's prescriber at outpatient psychiatry, Angie Hill APRN, reports that when the patient decompensates, she begins to hear noises, which progressed to children's voices, and finally to critical voices that say mean things to her. This last occurred during a psychotic break last year, which resulted in stopping escitalopram, and increasing Risperdal. The treatment goal has been to reduce the amount of risperidone, which currently is at 4 mg at bedtime. The patient's Lyrica has been stopped, due to not working to ease her pain, and suspicion that it might have led to difficulty in awaking her yesterday, which prompted a rapid response. Gabapentin 100 mg by mouth 3 times per day has been started in its place for neuropathic pain. The patient has been on this medication before, most recently at 300 mg by mouth 3 times per day. This medication is used for her neuropathic pain, but also may be useful in helping to manage her anxiety. Although the patient has visual impairment, she was able to explain how she checks her blood sugar, obtains the reading, and is able to correctly dose herself with her pre-meal and long-term insulins. When asked how her current pain medication regimen, Tylenol No. 3, containing codeine, is managing her pain, she states, "it's not, I'm only allowed 2 of those per day." This is in accordance with the order from her primary care provider. We note that her urine toxicology was greater than 4000 for opiate/morphine, which I found surprising, if she is indeed taking only Tylenol #3 X 2 tabs daily. The patient denies taking any extra medication for her pain. She denies obtaining any medications from others. At the beginning of my interview, the patient's daughter and granddaughter were present. Her daughter mentions several times that she would like a referral for the patient to a pain framing manager, and she sees a local provider herself. The daughter was concerned that combinations of medications may have led to the increased confusion of her mother. It is possible that the combination of Lyrica and Tylenol with codeine No. 3 pain medications led to increased MEDICAL ASSISTANT CARDIOLOGY depression, psychomotor impairment and other additive effects. There is no mention made in the [employer] interaction decoration checker of metabolism impairment, but this should be considered before adding other pain medications. Risperidone in combination with either of the above, may cause similar affects. The pregabalin/Lyrica has since been discontinued. The patient's current psychotropic medications are listed in the medication claim history. I confirmed them with the patient's prescriber today. Provisional Treatment Plan: 1. I have changed the risperidone dosing to 4 mg by mouth at bedtime. a. Monitor and replete electrolytes, in particular potassium and magnesium, to the upper portion of the normal range. Hypomagnesemia has been associated with TdP. b. Monitor EKG and hold this medication for arrhythmia or QTC greater than 475 ms. The latest EKG on 11/04/2016 shows sinus rhythm, 75 BPM, QTC 420 ms. 2. I have added mirtazapine 7.5 mg by mouth at bedtime as needed for insomnia. 3. Please avoid any unnecessary interruptions to the patient's sleep, and shift in nursing activities whenever possible. 4. Please avoid medications with strong anti-cholinergic properties, as well as other delirium triggers, such as dehydration and constipation. 5. Please advise when the patient is nearing discharge, and we will procure an appointment for her at outpatient psychiatry with her provider. Thank you for asking us to participate in March's care. We will continue to follow along. Willard Schumacher APRN, pager [phone].
[2016-11-06 00:35] VITALS: BP 126/56
--- NOTE | 2016-11-06 06:53 | PN- Housestaff ---
See Addendum Subjective Follow-up For: Altered mental status Hypoglycemia Peripheral neuropathy Subjective: Patient seen and examined at bedside this AM. She continues to endorse constant low back pain, rated a 6/10 after receiving Ultram 25 mg PO. She endorses severe burning pain of bilateral feet that is bothersome and prevented adequate sleep last night. Patient denies any other symptoms, including fever, chills, chest pain, shortness of breath, abdominal pain, dysuria, shakiness or feelings of hypoglycemia. Review of Systems Constitutional: Denies: chills, fever, malaise. EENTM: Denies: hearing changes, nasal congestion, throat pain. Cardiovascular: Denies: chest pain, palpitations, syncope. Respiratory: Denies: cough, short of breath, sputum production. Gastrointestinal: Denies: abdominal pain, bloating, constipation, diarrhea, distention, melena, nausea, vomiting. Genitourinary: Denies: dysuria, hematuria. Musculoskeletal: Reports: see HPI, back pain. Skin: Denies: lesions. Neurological/Psychological: Reports: numbness, paresthesia. Denies: anxiety, confusion, headache, weakness. Hematologic/Endocrine: Denies: polyuria, polydipsia. Immunologic/Allergic: Denies: splenectomy. Objective Last 24 Hrs of Vital Signs/I&O Vital Signs Date Time Temp Pulse Resp B/P Pulse O2 O2 Flow FiO2 Ox Delivery Rate 11/06 0035 97.8 67 18 126/56 96 Room Air 11/05 1544 97.4 70 19 130/68 97 11/05 0912 68 112/58 Intake & Output 11/06 1600 11/06 0800 11/06 0000 Intake Total 300 Output Total Balance 300 Intake, Oral 300 Number 1 Bowel Movements Physical Exam General Appearance: Alert, Oriented X3, Cooperative, No Acute Distress Skin: No Rashes, No Significant Lesion HEENT: Atraumatic, PERRLA, Mucous Membr. moist/pink Neck: Supple, No JVD, No thryomegaly Lymphatic: Cervical nl Cardiovascular: Regular Rate, Normal S1, Normal S2, No Murmurs Lungs: Clear to Auscultation, Normal Air Movement Abdomen: Normal Bowel Sounds, Soft, No Tenderness, No Hepatospenomegaly, No Masses Neurological: Normal Speech, Normal Tone Extremities: No Clubbing, No Cyanosis, No Edema, No Tenderness/Swelling Vascular: Pulses Symmetrical Current Medications: Current Medications Sig/Bertha Start time Last Medication Dose Route Stop Time Status Admin Acetaminophen 1,000 MG Q6H PRN 11/05 1715 AC N/A 1 UNIT IV Acetaminophen 650 MG Q6P PRN 11/02 2130 AC 11/04 PO 0520 Aspirin 81 MG DAILY 11/03 1000 AC 11/05 PO 0908 Atenolol 25 MG DAILY 11/03 1000 AC 11/05 PO 0912 Atropine Sulfate 1 GTT 11/05 1000 AC 11/05 OPH 0913 Brimonidine Tartrate 1 GTT BID 11/03 1000 AC 11/05 OPH 2155 Cholecalciferol 2,000 IU DAILY 11/03 1000 AC 11/05 PO 0908 Cyanocobalamin 1,000 MCG DAILY 11/03 1000 AC 11/05 PO 0908 Fish Oil 1,050 MG DAILY 11/03 1000 AC 11/05 PO 0909 Furosemide 20 MG DAILY 11/03 1000 AC 11/05 PO 0908 Gabapentin 100 MG Q8 11/05 1400 AC 11/06 PO 0542 Ibuprofen 600 MG .STK-MED ONE 11/05 1523 DC PO 11/05 1524 Ibuprofen 600 MG .STK-MED ONE 11/05 0903 DC PO 11/05 0904 Ibuprofen 600 MG Q6P PRN 11/02 2130 AC 11/05 PO 1526 Insulin Detemir 8 UNITS AT BEDTIME 11/04 2200 AC 11/05 SC 2155 Magnesium Oxide 400 MG BID 11/03 1000 AC 11/05 PO 2155 Mirtazapine 7.5 MG AT BEDTIME PRN 11/05 1745 AC 11/05 PO 2229 Omeprazole 40 MG DAILY AC 11/03 0700 AC 11/04 PO 0649 Patient Medication 1 ED .STK-MED ONE 11/05 1358 DC Teaching ED 11/05 1359 Prednisolone 1 GTT 11/05 1000 AC 11/05 OPH 0909 Risperidone 4 MG AT BEDTIME 11/05 2200 DC 11/05 PO 2155 Risperidone 4 MG AT BEDTIME 11/05 2200 AC 11/05 PO 2228 Risperidone 6 MG QPM 11/02 2300 DC 11/04 PO 2214 Timolol Maleate 1 GTT BID 11/03 1000 AC 11/05 OPH 2155 Tramadol HCl 25 MG Q6-PRN PRN 11/05 1715 AC 11/06 PO 0545 Orders Radiology Findings: EXAMINATION: CT HEAD WITHOUT CONTRAST CLINICAL INFORMATION: Asymmetrical pupillary dilatation, left greater than right. COMPARISON: Noncontrast head CT 11/02/2016. TECHNIQUE: Contiguous axial imaging was performed from the skull base to vertex without intravenous administration of contrast. DLP: 600 mGy-cm. FINDINGS: Mild parenchymal volume loss with proportional prominence of the sulci and ventricles. No acute intracranial abnormality. No acute intracranial hemorrhage, mass or mass effect or abnormal extra-axial fluid collections. The density within the dural venous sinuses is within normal limits. The ventricles are normal in size, without hydrocephalus. There are no focal areas of hypoattenuation within a vascular distribution to suggest acute transcortical ischemia. The basilar cisterns are patent. No acute calvarial abnormality is identified. No visible abnormality of the bilateral orbits. Soft tissues appear unremarkable. The imaged paranasal sinuses and mastoid air cells are well aerated. IMPRESSION: No acute intracranial abnormality. Miscellaneous Findings: EXAMINATION: XR LUMBAR SPINE CLINICAL INFORMATION: Worsening back pain. Assess for fracture. COMPARISON: CT of the abdomen and pelvis from 11/23/2015 TECHNIQUE: Single frontal view of the lumbar spine FINDINGS: There is mild height loss involving L2, which is grossly similar to the prior study accounting for differences in modality. L5 laminectomy is redemonstrated. There is a mild dextroconvex scoliosis. There is an equivocal new mild compression deformity involving T11 and possibly T10 as well, neither of which is well assessed on this single frontal view. There is moderate degenerative change of the SI joints. Bilateral total hip replacements are partially visualized. The bowel gas pattern is nonobstructive. There are scattered phleboliths in the pelvis. IMPRESSION: 1. Stable appearing compression deformity involving L2, comparing across modalities. 2. Equivocal interval compression deformities of T10 and T11, not ideally assessed on this single frontal view. 3. Mild dextroconvex lumbar scoliosis. Remote L5 laminectomy. CXR: IMPRESSION: No acute cardiopulmonary findings. Assessment/Plan Assessment: Ms. Garg is a pleasant 76 year old female with PMH macular degeneration with legal bilateral blindess, HTN, IDDM, neuropathy, chronic back pain, and late onset paranoid schizophrenia who presented to the ED with her granddaughter after concerns for weakness, increasing confusion and low back pain (acute on chronic). Patient was admitted to the general medicine floor and the following is the management: 1. Encephalopathy * DDx: delirium vs dementia, polypharmacy, recent increase in lyrica dose, hypoglycemia/innapropriate insulin dose, opiod overdose (tylenol #3) or a combination of above * Vit D low, Vit B12/TSH/FT4 normal * MMSE done 11/03/16 shows no impairment (lost 1 point for recall, unable to WORLD backwards), of note, she could not perform visual tasks (3 points) * PT/OT consulted, PT suggested patient is stable for discharge home * Social work consult placed, will f/u recommendations * Florecita (granddaughter) brought patient's home meds and there are several medications patient appears to not be compliant with (see student report from for full details) * Patient will likely benefit from close monitoring home care as she is unable to take medications appropriately, case management aware as patient willing to have home health services, she will get this upon discharge * Continue Vit B12, fish oil, mg ox and vit d supplementation 2. Acute on chronic LBP (chronic pain d/o) * Lumbar XR shows stable appearing L2 compression deformity, no new abnormalities noted * Lyrica 100 mg PO TID discontinued as patient had a rapid response on 11/04/16, 5 hours after receiving lyrica (CT head at that time negative along with normal EKG and troponin) * Gabapentin 100 mg TID for peripheral neuropathy ordered yesterday, we have increased to 300 mg TID due to severe neuropathy * NSAIDs and tylenol for pain, HOLD tylenol #3 in setting of encephalopathy, we have addeded low dose opiod ultram at 25 mg, patient will be given this on discharge ([place] today) * PPI 40 mg PO daily continued * HOLD celecoxib 200 mg for now in setting of NSAIDs being ordered for pain * [place] checked, will provide patient with 10 tabs tramadol for pain and discontinue patient's tylenol #3. 3. Hyperkalemia * K of 5.2 on admission, currently 4.2 * Peaked T wave in lead V2 on admission EKG * Hold K supplement 4. Hyponatremia * Na of 134 on admission, currently 138 * Continue to monitor BEP 5. IDDM * Hold oral hypoglycemics * Continued accuchecks TIDAC/HS * Discontinued NSS TIDAC/HS as patient was hypoglycemic * Levemir switched to 8U SC, will give patient prescription for 8U SC flex pen on discharge and close follow up with PCP is recommended for continued care of her DM * HgA1C 7.0 6. HTN * Continue aspirin 81 mg, atenolol 25 mg, lasix 20 mg * Monitor vitals Q shift 7. Macular degeneration * Continue atropine sulfate, brimonidine/timolol, prednisolone acetate eye drops 8. Major depressive disorder with psychotic features * Psychiatric consult placed and appreciated, we have followed their recommendations as below * Risperidone decreased to 4 mg PO QPM * Mirtazapine 7.5 mg PO added at bedtime for insomnia * On discussion with psychiatric AEROSPACE MECHANIC, he suggests that patient may benefit from increasing gabapentin to 300 mg TID as she was previously on this and it may control her anxiety better as her anxiety is currently rated a 4/10 * Psychiatric AEROSPACE MECHANIC able to schedule an appt with AEROSPACE MECHANIC Angie Hill tomorrow at 330 pm. DNR/DNI Diet: Heart healthy DVTP: mechanical and pharm Mild pain pathways- NSAIDS, hold Tylenol #3 Problem List: 1. Chronic low back pain 2. Diabetes mellitus 3. History of - hypertension 4. Leg pain 5. Altered mental status 6. Schizophrenia 7. Noncompliance with medication regimen Pain Ratin Pain Location: Low back, bilateral lower extremities Pain Goal: Pain 4 or less Pain Plan: Ultram 25 mg PO Q6P for severe pain, IV tylenol for moderate pain, PO tylenol for mild pain. Tomorrow's Labs & Rationales: BEP (monitor K and Mg
[2016-11-06] MEDS ORDERED: RISPERIDONE4 M1 PO (07:10)
[2016-11-06] MEDS ORDERED: MIRTAZAPINE7.5 M1 PO (07:10)
[2016-11-06] MEDS ORDERED: LEVEMIR100 UNIT/1 SC (07:34)
[2016-11-06 08:00] VITALS: BP 138/61
[2016-11-06] MEDS ORDERED: TRAMADOL HCL50 M1 PO (08:24)
[2016-11-06 09:15] VITALS: BP 118/50
[2016-11-06] MEDS ORDERED: LEVEMIR FL100 UNIT/1 SC (10:19)
[2016-11-06] MEDS ORDERED: GABAPENTIN100 M2 PO (10:19)
--- NOTE | 2016-11-06 13:21 | NUR ---
Late Entry: Aware of patients discharge home. Referral had been received for "placememnt, family has concerns regarding her living state". Case discussed with caseworker, Taya Guillaume RN yesterday. She reports that patient was refusing the suggestion of STR, but was agreeable to home care assistance. Please call if other social work needs arise.
== END 2016-11-06 11:53 | disposition home health service (06) | DRG 92 ==
LOC: ENRESERVTM → ENRESERVDT → ERH 13:35 → ENPENDDIS 20:04 → ERHI 20:04 → 2NB 20:04 → ERH 20:04 → 2NB 21:32
PROVIDERS: Physician Assistant; Student in an Organized Health Care Education/Training Program; ADMIT Internal Medicine
DX: G92 Toxic encephalopathy (principal); E87.1 Hypo-osmolality and hyponatremia; E11.40 Type 2 diabetes mellitus with diabetic neuropathy, unspecified; E87.5 Hyperkalemia; F20.0 Paranoid schizophrenia; H54.8 Legal blindness, as defined in USA; I10 Essential (primary) hypertension; Z79.4 Long term (current) use of insulin; F32.9 Major depressive disorder, single episode, unspecified; M54.5 Low back pain; Z91.14 Patient's other noncompliance with medication regimen
CPT/HCPCS: 2NBSP; 72020; 80307; 81003; 82436; 87804; 87804-59; 93005; 93010; 94799; 96374; 97116-GO; 97161-GP; 97165-GO; 97530-GO; 99232; J0131; J3490

== ENCOUNTER 2018-03-21 18:27 | Inpatient (IN) | payer OTHER, MEDICARE ==
[~2018-03-21] VITALS: Ht 154.9 cm; Wt 57.8 kg
[~2018-03-21 18:27] MED LIST changes: +ASPIRIN EC81 M1 PO; +ATENOLOL25 M1 PO; -ATENOLOL25 MG PO; +ATROPINE SULFATE2 ML OU; +CELECOXIB200 M1 PO; +COMBIGAN EYE DRO5 ML OP; -ECOTRIN81 MG PO; +FISH OIL CONC1000 M1 PO; -FISH OIL CONC1000 MG PO; +GABAPENTIN100 M2 PO; +LEVEMIR FL100 UNIT/1 SC; +LEVEMIR100 UNIT/1 SC; +LEXAPRO10 M1 PO; +LORAZEPAM0.5 M1 PO; +LYRICA100 M1 PO; +LYRICA150 M1 PO; -MAGOX 400241.3 MG PO; +MAGOX 400400 MG PO; +MIRTAZAPINE7.5 M1 PO; +MURO-12815 ML OU; +OMNIPRED10 ML OU; -PREDNISOLONE AC10 ML OPH; +PREDNISONE2.5 M1 PO; +PRESERVISION A1 EAC2 PO; -PRESERVISION1 SGL PO; +RISPERDAL3 M1 PO; +TRAMADOL HCL50 M1 PO; +ULTRAM50 M1 PO; -VITAB121000 PO; +VITAMIN B-121000 MC3 PO; -[UNRECOGNIZED DRUG - OTHER] OPH
--- NOTE | 2018-03-21 18:47 | CT SCAN REPORT ---
EXAMINATION: CT HEAD WITHOUT CONTRAST CLINICAL INFORMATION: Cerebrovascular accident. Altered mental status. COMPARISON: CT head 02/13/2018. TECHNIQUE: Contiguous axial imaging was performed from the skull base to vertex without intravenous administration of contrast. DLP: 620 mGy-cm FINDINGS: Moderate diffuse commensurate prominence of ventricles and sulci is present and is grossly unchanged compared with 02/13/2018. Mild periventricular white matter patchy hypodensities are present. No intracranial hemorrhage, tumors or infarcts are noted. Senescent calcifications are present in the globus pallidus right. Bilateral ocular lens extractions are visualized. Within the visualized paranasal sinuses, mastoid air cells and middle ear cavities, no significant opacification is noted. IMPRESSION: 1. No acute abnormalities identified. 2. Mild white matter chronic small vessel ischemic changes.
--- NOTE | 2018-03-21 18:51 | ED GENERAL ADULT ---
History of Present Illness General Chief Complaint: Neuro Symptoms/ Deficit Stated Complaint: AMS Source: family, EMS Exam Limitations: confusion, physical impairment Vital Signs & Intake/Output Vital Signs & Intake/Output Vital Signs Date Time Temp Pulse Resp B/P B/P Pulse O2 O2 Flow FiO2 Mean Ox Delivery Rate 03/21 2106 89 180/78 03/21 2045 92 184/86 99 03/21 2027 99.8 86 18 178/78 100 Room Air 03/21 2012 84 18 184/86 100 Room Air 03/21 1957 87 18 190/80 100 Room Air 03/21 1954 100 Room Air Room Air 03/21 1952 100 190/90 03/21 1942 99.8 100 18 190/90 100 Room Air 03/21 1923 100.5 80 16 178/90 99 Room Air Room Air 03/218 83 195/100 03/21 1914 83 16 195/100 99 Room Air Room Air 03/21 1908 90 16 205/100 / 1908 90 16 205/100 99 Room Air Room Air 03/21 1900 90 205/100 03/21 1900 90 16 198/94 98 Room Air Room Air 03/21 1828 98.2 80 16 221/95 99 Room Air Room Air Allergies Coded Allergies: No Known Allergies (03/21/18) Reconcile Medications Aspirin (Ecotrin*) 81 MG TABLET.DR 1 TAB PO DAILY HEART/BLOOD (Reported) Atenolol 25 MG TABLET 1 TAB PO DAILY BP (Reported) Atropine Sulfate (Unknown Strength) DROPS 1 DROP OU Saturday BOTH EYES (Reported) Brimonidine Tartrate/Timolol (Combigan Eye Drops) 0.2 %-0.5 % DROPS 1 DRP OP BID EYE (Reported) Cyanocobalamin (Vitamin B-12) 1,000 MCG TABLET 1 TAB PO DAILY SUPPLEMENT ( Reported) Furosemide 20 MG TABLET 1 TAB PO PRN DIURETIC (Reported) Gabapentin 100 MG CAPSULE 1 CAP PO TID NERVE PAIN (Reported) Insulin Aspart (Novolog) (Unknown Strength) VIAL (Unknown Dose) SC TIDAC/HS DM (Reported) Insulin Glargine,Hum.rec.anlog (Lantus Solostar) 100 UNIT/ML (3 ML) INSULN.PEN 9 UNIT SC QPM DM (Reported) Magnesium Oxide (Magox 400) 400 MG TABLET 1 TAB PO BID SUPPLEMENT (Reported) Mirtazapine 15 MG TABLET 1 TAB PO QHS INSOMNIA (Reported) [place]-3 Fatty Acids (Fish Oil Concentrate) 1,000 MG CAPSULE 1 SGL PO DAILY SUPPLEMENT (Reported) Prednisolone Acetate (Omnipred) 1 % DROPS.SUSP 1 GTT OU SATURDAY WED SATURDAY BOTH EYES (Reported) Risperidone 2 MG TABLET 1 TAB PO QHS SCHIZOPHRENIA (Reported) Sodium Chloride (Ariane-128) 2 % DROPS 1 DRP OU TID BOTH EYES (Reported) Tylenol With Codeine (Tylenol With Codeine #3 Tablet) 300 MG-30 MG TABLET 1 TAB PO BID PAIN (Reported) Vit A/Vit C/Vit E/Zinc/Copper (Preservision Areds Softgel) 14,320-226 CAPSULE 1 SGL PO BID SUPPLEMENT (Reported) Triage Nurses Notes Reviewed? yes Onset: Abrupt Duration: hour(s): Timing: recent history HPI: 03/21/18 The patient was seen on arrival 78-year-old female with a past medical history of congestive heart failure, diabetes, carotid stenosis, cervical cancer, recent left wrist fracture, macular degeneration, anisocoria, presented to the ED for expressive aphasia. According to the granddaughter who is a nurse the patient was in her usual state of health and last seen normal at 1645. On arrival in the ED. She has anisocoria, left pupil is larger, extraocular muscles intact, no gag reflex positive dysphagia and dysarthria. Slight left facial droop. No focal weakness to the upper or lower extremities. She tries to talk but cannot find the words. Her blood pressure was elevated. She was taken immediately to CT scan. Fingerstick revealed a normal serum glucose. Past History Medical History Any Pertinent Medical History? 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 No other family history of epilepsy). Hx Contributory? No Review of Systems Review of Systems Constitutional: Denies: fever. EENTM: Reports: see HPI. Respiratory: Denies: short of breath. Cardiovascular: Denies: chest pain. GI: Denies: abdominal pain. Genitourinary: Reports: no symptoms. Musculoskeletal: Reports: no symptoms. Skin: Reports: no symptoms. Neurological/Psychological: Reports: see HPI. Hematologic/Endocrine: Reports: no symptoms. Immunologic/Allergic: Reports: no symptoms. Physical Exam Physical Exam General Appearance: awake, anxious, severe distress Head: atraumatic Ears, Nose, Throat: normal pharynx Neck: supple Respiratory: chest non-tender, no respiratory distress Cardiovascular: regular rate/rhythm Peripheral Pulses: 4+ radial (R), 4+ radial (L) Gastrointestinal: non-tender Rectal: heme negative stool Back: decreased range of motion Extremities: pedal edema Neurologic/Psych: awake, alert Skin: intact, normal color, warm/dry Core Measures ACS in differential dx? No CVA/TIA Diagnosis: Yes NIH Stroke Scale (24 Hours) NIH Stroke Scale (24 Hours) Response Value Level of Consciousness alert 0 LOC Questions incorrect 2 LOC Commands incorrect 2 Best Gaze normal 0 Visual Rob no visual loss 0 Facial Paresis minor 1 Motor Arm - Left no drift 0 Motor Arm - Right no drift 0 Motor Leg - Left no drift 0 Motor Leg - Right no drift 0 Limb Ataxia no ataxia 0 Sensory normal 0 Best Language severe aphasia 2 Dysarthria near to unintelligible 2 Extinction and Inattention partial neglect 1 Total 10 Date Last Known Well: 03/21/18 Time Last Known Well: 164 Symptom start date: 03/21/18 Symptom start time: 1700 Swallow Evaluation Fail Swallow eval date 03/21/18 Swallow eval time 1845 Sepsis Present: No Sepsis Focused Exam Completed? No Progress Differential Diagnoses I considered the following diagnoses in my evaluation of the patient: [CVA, intracranial bleed, sepsis] Plan of Care: Orders Procedure Date/time Status Nothing by Mouth 03/22 B Active Turn and Reposition 03/21 2045 Active Teach/Educate 03/21 2045 Active Skin Integrity Protocol 03/21 2045 Active Skin/Pressure Ulcer Assess (Sk 03/21 2045 Active Precautions 03/21 2045 Active Pain Treatment and Response 03/21 2045 Active Nutritional Intake, Monitor 03/21 2045 Active Isolation 03/21 2045 Active Patient Care Conference 03/21 2045 Active Activity/Ambulation 03/21 2045 Active Pathway - chart 03/21 2003 Active Patient Data 03/21 194 Active Admit to inpatient 03/21 193 Active Lindsey, Insertion/Removal/Asses 03/21 1904 Active CULTURE,URINE 03/21 190 Active Weight 03/21 190 Active URINE DRUG SCREEN FOR ER ONLY 03/21 185 Active TROPONIN LEVEL 03/21 183 Complete PARTIAL THROMBOPLASTIN TIME 03/21 1831 Complete PROTHROMBIN TIME 03/21 1831 Complete COMPREHENSIVE METABOLIC PANEL 03/21 183 Complete CBC WITHOUT DIFFERENTIAL 03/21 183 Complete EKG 03/21 1831 Active SWALLOW EVALUATION 03/21 UNK Active PT Evaluate & Treat 03/21 UNK Active House Staff 03/21 UNK Active Occupational Tx Eval & Treat 03/21 UNK Active VTE Mechanical Prophylaxis 03/21 UNK Active Vital Signs 03/21 UNK Active NIH Stroke Scale 03/21 UNK Active Intake & Output 03/21 UNK Active FingerStick- Glucose 03/21 UNK Active Activity/Ambulation 03/21 UNK Active Current Medications Sig/Bertha Start time Last Medication Dose Stop Time Status Admin Aspirin Buffered 81 MG DAILY 03/22 0900 CANr (Ecotrin) Labetalol HCl 5 MG ONCE ONE 03/21 1930 CAN (Trandate) 03/21 1931 Labetalol HCl 5 MG ONCE ONE 03/21 1930 CAN (Trandate) 03/21 1931 Laboratory Tests 03/21/181916: Anion Gap 10, Estimated GFR > 60, BUN/Creatinine Ratio 12.9, Glucose 149 H, Calcium 9.1, Total Bilirubin 0.4, AST 26, ALT 22, Alkaline Phosphatase 122, Troponin I < 0.01, Total Protein 6.7, Albumin 3.5, Globulin 3.2, Albumin/ Globulin Ratio 1.1 03/21/181853: PT 10.6, INR 0.97, APTT 26, CBC w Diff NO MAN DIFF REQ, RBC 4.02 L, MCV 90.8, MCH 31.1 H, MCHC 34.2, RDW 14.6 H, MPV 8.1, Gran % 43.4, Lymphocytes % 44.9, Monocytes % 9.6 H, Eosinophils % 1.5, Basophils % 0.6, Absolute Granulocytes 2.1, Absolute Lymphocytes 2.1, Absolute Monocytes 0.5, Absolute Eosinophils 0.1, Absolute Basophils 0 Microbiology 03/21 1904 URINE ROUT: Urine Culture - ORD The patient was placed on a electronic device monitor. Serial doses of IV labetalol were given. Blood pressure came down to 178/90. The case was discussed with the on- call neurologist Dr. Vann who was in agreement with the plan. IV TPA was given. Consent was provided by the granddaughter. Risks and benefits of TPA were explained. The daughter confirmed that the patient is DNR DNI. The patient was admitted to the ICU. I discussed the plan of care with Dr. Sagastume, I did sign out the patient to Dr. Cramer. Initial ED EKG: NSR, nonspecific ST T wave chg Departure Departure Disposition: STILL A PATIENT Condition: Stable Clinical Impression Primary Impression: CVA (cerebral vascular accident) Referrals: Sigifredo Connors MD (PCP/Family) Departure Forms: Customer Survey General Discharge Information Admission Note Spoke With: Brenda Talavera MD Documentation of Exam: Documentation of any treatments & extenuating circumstances including Concerns Regarding Discharge (functional status, medication knowledge or non-compliance, living conditions, etc.) that warrant an admission rather than observation: [The patient is admission to the ICU, neurology consultation, IV TPA] PATIENT: DONNA PRESENT AGE: 78 PATIENT ACCOUNT NO: [id number] : 39 LOCATION: [facility] ORDERING PHYSICIAN: Dhruv Meyer DO SERVICE DATE: 03/21/18 EXAM TYPE: CAT - CT HEAD WO IV CONTRAST This result was discussed with Dhruv Meyer MD (TBS) by telephone at 03/21/2018 6:47 PM and it was ascertained that the content and urgency of the report was understood at the time of direct communication. Addendum Signed by: Segun Mota MD 03/21/18 3600 EXAMINATION: CT HEAD WITHOUT CONTRAST CLINICAL INFORMATION: Cerebrovascular accident. Altered mental status. COMPARISON: CT head 02/13/2018. TECHNIQUE: Contiguous axial imaging was performed from the skull base to vertex without intravenous administration of contrast. DLP: 620 mGy-cm FINDINGS: Moderate diffuse commensurate prominence of ventricles and sulci is present and is grossly unchanged compared with 02/13/2018. Mild periventricular white matter patchy hypodensities are present. No intracranial hemorrhage, tumors or infarcts are noted. Senescent calcifications are present in the globus pallidus right. Bilateral ocular lens extractions are visualized. Within the visualized paranasal sinuses, mastoid air cells and middle ear cavities, no significant opacification is noted. IMPRESSION: 1. No acute abnormalities identified. 2. Mild white matter chronic small vessel ischemic changes. DICTATED BY: Segun Mota MD DATE/TIME DICTATED:03/21/181840 TRUCK MECHANIC:NANCY DATE/TIME TRANSCRIBED:03/21/181840 CONFIDENTIAL, DO NOT COPY WITHOUT APPROPRIATE AUTHORIZATION. <Electronically signed in Other Vendor System> SIGNED BY: Segun Mota MD 03/21/181846 Critical Care Note Critical Care Note Critical Care Time: 75-104 min
[2018-03-21 19:01] LABS: ABSOLUTE BASOPHIL COUNT 0 /CUMM (0.0-0.2); ABSOLUTE EOSINOPHIL COUNT 0.1 /CUMM (0.0-0.7); ABSOLUTE GRANULOCYTE CT 2.1 /CUMM (1.4-6.5); ABSOLUTE LYMPH COUNT 2.1 /CUMM (1.2-3.4); ABSOLUTE MONOCYTE COUNT 0.5 /CUMM (0.10-0.60); BASOPHIL % 0.6 % (0.0-2.0); EOSINOPHIL % 1.5 % (0-5); GRANULOCYTE % 43.4 % (42.2-75.2); HEMATOCRIT 36.5 % (37-47); MEAN CORPUSCULAR HGB 31.1 PG (27.0-31.0); MEAN CORPUSCULAR HGB CONC 34.2 G/DL (33.0-37.0); MEAN CORPUSCULAR VOLUME 90.8 FL (81.0-99.0); MEAN PLATELET VOLUME 8.1 FL (7.4-10.4); PLATELET COUNT 225 /CUMM (130-400); RBC DISTRIBUTION WIDTH 14.6 % (11.5-14.5); RED BLOOD CELL CT 4.02 /CUMM (4.20-5.40); WHITE BLOOD CELL COUNT 4.8 /CUMM (4.8-10.8)
[2018-03-21 19:17] LABS: PT 10.6 SEC (9.4-12.5); PTT 26 SEC (25-37)
--- NOTE | 2018-03-21 19:53 | History & Physical ---
Ryan Bridges MD 03/21/181952: General Information and HPI MD Statement: I have seen and personally examined DONNA,MARCH and documented this H&P. The patient is a 78 year old F who was BIBA with stroke alert. Source of Information: family (granddaughter) Exam Limitations: no limitations History of Present Illness: 78 yo F with pmh of HTN, IDDM with peripheral neuropathy, macular degeneration ( legally blind), CHFpEF (65% per family), uterine cancer status post hysterectomy , chronic back pain, major depressive disorder with psychotic symptoms, last hospital admission in Oct 2016 for AMS, was noted by her granddaughter over phone to have some confusion and "word salad", after which she had called in EMS and reached out to her. According to the granddaughter, who is an ICU nurse (and well versed in neurocheck), the patient was in her usual state of health earlier during the day , had her lunch with other family members without any issues, and at 4:30 PM when she (the granddaughter) had called the patient who could speak but had some confusion. She called in again in 10 minutes and found that the patient was more confused and then called in the EMS and also reached out to her. On scene, the patient could follow instructions, and was noted to have confusion, "expressive aphasia", "word salad" but could move her limbs without problems, did not have a drift, facial asymmetery, could show her teeth/smile, close her eyes, per the granddaughter. By the time she reached the emergency department, the patient was having slurry speech, still word salad, but now could not follow instructions, but still did not have any facial asymmetry. She was spontaneously moving her limbs but not upon instructions. On arrival, she underwent a plain CAT scan of the head immediately, and acute hemorrhagic stroke was ruled out, and given her time interval, she received the initial dose of TPA after the emergency doctor having a discussion about the risks (including bleeding which could be fatal as well), and the benefits (as some patients would have it) about starting TPA on the patient. The power of associate attorney made the decision and the patient is now being managed per TPA protocol. Her initial blood pressure was high, thus he required IV beta jae to get it under control before starting the TPA. Since the TPA has been started, the granddaughter mentions that the patient is slightly improving in terms of probably understanding the instructions/questions , but continues to have expression problems with non-meaningful words being verbalized. Patient seems to be frustrated about it as well. Of note, patient had a near syncopal episode last Saturday, which lasted around 5 minutes, when her blood sugar were checked which was normal, and the patient had been eating and drinking well, and was compliant on her medications. See had refused to get further evaluated with any healthcare provider at that time, but the family is concerned if she had a TIA then given her long history of carotid stenosis. Patient had not complained of any chest pain, headache, palpitations, weakness, numbness/tingling, incontinence, blurring of vision, slurring of speech recently. Per family, patient has had MRI after her hip replacement so MRI should not be an issue in terms of compatibility. Allergies/Medications Allergies: Coded Allergies: No Known Allergies (03/21/18) Home Med list Aspirin (Ecotrin*) 81 MG TABLET.DR 1 TAB PO DAILY HEART/BLOOD (Reported) Atenolol 25 MG TABLET 1 TAB PO DAILY BP (Reported) Atropine Sulfate (Unknown Strength) DROPS 1 DROP OU Saturday BOTH EYES (Reported) Brimonidine Tartrate/Timolol (Combigan Eye Drops) 0.2 %-0.5 % DROPS 1 DRP OP BID EYE (Reported) Cyanocobalamin (Vitamin B-12) 1,000 MCG TABLET 1 TAB PO DAILY SUPPLEMENT ( Reported) Furosemide 20 MG TABLET 1 TAB PO PRN DIURETIC (Reported) Gabapentin 100 MG CAPSULE 1 CAP PO TID NERVE PAIN (Reported) Insulin Aspart (Novolog) (Unknown Strength) VIAL (Unknown Dose) SC TIDAC/HS DM (Reported) Insulin Glargine,Hum.rec.anlog (Lantus Solostar) 100 UNIT/ML (3 ML) INSULN.PEN 9 UNIT SC QPM DM (Reported) Magnesium Oxide (Magox 400) 400 MG TABLET 1 TAB PO BID SUPPLEMENT (Reported) Mirtazapine 15 MG TABLET 1 TAB PO QHS INSOMNIA (Reported) [place]-3 Fatty Acids (Fish Oil Concentrate) 1,000 MG CAPSULE 1 SGL PO DAILY SUPPLEMENT (Reported) Prednisolone Acetate (Omnipred) 1 % DROPS.SUSP 1 GTT OU Saturday BOTH EYES (Reported) Risperidone 2 MG TABLET 1 TAB PO QHS SCHIZOPHRENIA (Reported) Sodium Chloride (Ariane-128) 2 % DROPS 1 DRP OU TID BOTH EYES (Reported) Tylenol With Codeine (Tylenol With Codeine #3 Tablet) 300 MG-30 MG TABLET 1 TAB PO BID PAIN (Reported) Vit A/Vit C/Vit E/Zinc/Copper (Preservision Areds Softgel) 14,320-226 CAPSULE 1 SGL PO BID SUPPLEMENT (Reported) Compliance With Home Meds: GOOD Past History Travel History Traveled to [place] past 21 day No Medical History Neurological: NEUROPATHY EENT: glaucoma, macular degeneration, LEGALLY BLIND - + PERIPHERAL VISION Cardiovascular: hypertension, 79% CAROTID OCCULSION Respiratory: NONE Gastrointestinal: NONE Hepatic: NONE Renal: NONE Musculoskeletal: NONE Psychiatric: major depressive disorder with psychotic features Endocrine: DIABETES (TYPE 2) Blood Disorders: NONE Cancer(s): NONE 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 No other family history of epilepsy). Psychosocial History Where do you live? Home Who Do You Live With? self Services at Home: None Primary Language: Arabic Smoking Status: Former Smoker (in 1950s (for >10 yr)) ETOH Use: denies use Illicit Drug Use: denies illicit drug use Power of Online Editor/HCP? yes (granddaughter Padma oWrkman) Name of POA/HCP: Padma Workman Functional Ability ADLs Independent: dressing, eating, toileting, bathing. Ambulation: cane IADLs Independent: food prep, telephone, medication admin. Needs Assist: shopping, housework, finances, transportation. Review of Systems Review of Systems Constitutional: Reports: no symptoms. EENTM: Reports: no symptoms. Cardiovascular: Reports: no symptoms. Respiratory: Reports: no symptoms. GI: Reports: no symptoms. Genitourinary: Reports: no symptoms. Musculoskeletal: Reports: no symptoms. Skin: Reports: no symptoms. Neurological/Psychological: Reports: see HPI (reported by POA), confusion, weakness, other (slurring of speech). Hematologic/Endocrine: Reports: no symptoms. All Other Systems: Reviewed and Negative Exam & Diagnostic Data Last 24 Hrs of Vital Signs/I&O Vital Signs Date Time Temp Pulse Resp B/P B/P Pulse O2 O2 Flow FiO2 Mean Ox Delivery Rate 03/21 1952 100 190/90 03/21 1942 99.8 100 18 190/90 100 Room Air 03/21 1923 100.5 80 16 178/90 99 Room Air Room Air 03/21 1918 83 195/100 03/21 1914 83 16 195/100 99 Room Air Room Air 03/218 90 16 205/100 03/21 1908 90 16 205/100 99 Room Air Room Air 03/210 90 205/100 03/21 1900 90 16 198/94 98 Room Air Room Air 03/21 1828 98.2 80 16 221/95 99 Room Air Room Air Physical Exam General Appearance Alert, bit frustrated due to expressive problem Skin No Rashes, No Breakdown Skin Temp/Moisture Exam: Warm/Dry Sepsis Skin Exam (color): Normal for Ethnicity HEENT Atraumatic, PERRLA, EOMI, dry mucosa Neck Supple, No JVD Lymphatic Cervical nl Cardiovascular Regular Rate, Normal S1, Normal S2, No Murmurs Lungs Clear to Auscultation, Normal Air Movement Abdomen Normal Bowel Sounds, Soft, No Tenderness Neurological Reflexes 2+ (b/l), unable to follow instructions, macular degeneration does not allow vision testing, gait not checked, patient has spontaneous limb movements Extremities No Clubbing, No Cyanosis, No Edema, Normal Pulses Vascular Normal Pulses, Pulses Symmetrical Sepsis Peripheral Pulse Location: Radial Sepsis Peripheral Pulse Exam: Normal Sepsis Cap Refill Exam: <2 Sec Last 24 Hrs of Labs/Cipriano: Laboratory Tests 03/21/181916: Sodium Pending, Potassium Pending, Chloride Pending, Carbon Dioxide Pending, Anion Gap Pending, BUN Pending, Creatinine Pending, BUN/Creatinine Ratio Pending , Glucose Pending, Calcium Pending, Total Bilirubin Pending, AST Pending, ALT Pending, Alkaline Phosphatase Pending, Troponin I Pending, Total Protein Pending , Albumin Pending, Globulin Pending, Albumin/Globulin Ratio Pending 03/21/181853: PT 10.6, INR 0.97, APTT 26, CBC w Diff NO MAN DIFF REQ, RBC 4.02 L, MCV 90.8, MCH 31.1 H, MCHC 34.2, RDW 14.6 H, MPV 8.1, Gran % 43.4, Lymphocytes % 44.9, Monocytes % 9.6 H, Eosinophils % 1.5, Basophils % 0.6, Absolute Granulocytes 2.1, Absolute Lymphocytes 2.1, Absolute Monocytes 0.5, Absolute Eosinophils 0.1, Absolute Basophils 0 Microbiology 03/21 1904 URINE ROUT: Urine Culture - ORD Diagnostic Data EKG Results sinus rhythm, normal intervals, rate, and no ischemic changes; NO AFIB OR FLUTTER NOTED. Assessment/Plan Assessment: 78 yo F with pmh of HTN, IDDM with peripheral neuropathy, macular degeneration ( legally blind), CHFpEF (65% per family), uterine cancer status post hysterectomy , chronic back pain, major depressive disorder with psychotic symptoms, last hospital admission in Oct 2016 for AMS, was noted by her granddaughter over phone to have some confusion and "word salad", after which she had called in EMS and reached out to her. The patient was found to have acute ischemic stroke, and she is currently admitted in the ICU for the management of following reasons: RESPIRATORY No issues INFECTIOUS DISEASE No issues CARDIOLOGY #H/o HTN with hypertensive urgency today s/p IV Lebetalol multiple pushes. -Needs to be <180/105 due to tPA running and SBP needs to be >160 so as not to decrease the BP rapidly given her hypertensive urgency -IV Lebetalol or IV Hydralazine can be given as necessary -Consider cardiology consultation if necessary #H/o carotid artery stenosis -getting a CTA neck per neurology -Trend Trop and EKG and continue telemetry to find out if afib/arrhythmia or ischemic process was involved. (initial trop was negative). HEMATOLOGY No issues METABOLIC No issues -Follow up HbA1c, TSH, free T4, lipid panel ALIMENTARY No gag reflex so currently NPO NEPHROLOGY No issues NEUROLOGY #Acute ischemic CVA Per family, her symptoms evolved and now she is better (in terms of comprehension) but not at her baseline. Clinical assessment is unable to make that judgement currently. She has no contraindication to tPA and the POA consented to the therapy understanding all the risk and benefits of it. -Serial neurochecks -Continue tPA -Watch for BP as outlines above -Repeat head imaging, preferably MRI in 24 hrs (ordered for 6:16 pm), else CT head WITHOUT IV constrast -Follow neurology notes (I spoke to Dr Vann and discussed the case, agrees to the plan) -Echo to see for any thrombus, structural and functional status of the heart -Will not benefit from transfer as she does not have a bit thrombus burden for thrombectomy -PT/OT per CVA protocol - to formally evaluate her and then possibly restart diet and meds CHRONIC ISSUES OTHERWISE: All her home meds are on hold for now, including her anti-psychotic meds. MISC: Diet: NPO currently DVT prophylaxis: TPA running, ALPS Code status: DNR/DNI IV access: Peripheral Family update: Done with the POA (granddaughter) As Ranked By This Provider Problem List: 1. Neurologic deficit due to acute ischemic cerebrovascular accident (CVA) Core Measures/Misc (06/23) Acute Coronary Syndrome ACS Diagnosis: No Congestive Heart Failure Congestive Heart Failure Diagnosis No Cerebrovascular Accident CVA/TIA Diagnosis: Yes NIH Stroke Scale: Total 7 Date Last Known Well: 03/21/18 Time Last Known Well: 1642 Symptom Start Date: 03/21/18 Symptom Start Time: 1700 Swallow Evaluation Fail (failed gag reflex in the ED) Current/Past Hx AFib/AFlutter No VTE (View Protocol) VTE Risk Factors Age>40 No Mechanical VTE Prophylaxis d/t N/A MechProphylax Ordered No VTE Pharm Prophylaxis d/t Other (getting TPA) Sepsis (View protocol) Sepsis Present: No If YES complete Sepsis Event Note If YES complete Sepsis Event Note Sadaf,Aartee 03/22/18 0405: Core Measures/Misc (06/23) Sepsis (View protocol) If YES complete Sepsis Event Note If YES complete Sepsis Event Note Attending MD Review Statement Attending Statement Attending MD Statement: examined this patient, discuss w/resident/PA/MUSIC PROFESSOR, agreed w/resident/PA/MUSIC PROFESSOR, reviewed EMR data (avail), reviewed images, amended to note Attending Assessment/Plan: CC: Troubles with speech PMH: DM, HTN, major depressive disorder with psychotic features, chronic back pain, history of uterine cancer S/P hysterectomy, legally blind secondary to macular degeneration, back surgery, 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 Patient was brought in ER through EMS after she was found to have trouble with speech and confusion. Patient was last seen normal at 4:30 PM. History is mostly obtain from patient's granddaughter who is ICU nurse at [facility]. Patient had called her around 4:30 when she seemed a little confused but her speech was normal within 10 minutes she called her back and found that patient was more confused and could not speak. When she went to see her patient could follow instructions, she being ICU nurse did a quick neuro exam which was within normal range except patient had expressive aphasia and she was talking irrelevant. Patient does not provide any complaints. Family member did not inform about any other s/s like seizures or passing out. Vitals: Temperature 100.5, pulse 90, RR 18, blood pressure 221/91 on arrival increased to 205/100 decreased to 178/90 after treatment, saturating 99% on room air. On exam: Alert, word salad, follows some instructions, anisocoria, spontaneously moves all extremities no obvious weakness noted, face appears asymmetrical at baseline but normal with smiling and talking, cooperative, no acute distress, neck supple, JVD normal, no lymphadenopathy, mucosa moist, no dependent edema, no obvious skin rashes or inflammation CVS: S1-S2, RRR. RS: Clear to auscultate bilaterally. Abdomen: Soft, NT, ND, bowel sounds present. CT head: 1. No acute abnormalities identified. 2. Mild white matter chronic small vessel ischemic changes. CTA head and neck: 1. No CT imaging evidence of acute intracranial infarction, mass or hemorrhage. 2. Atherosclerotic disease of carotid arteries. The atherosclerotic plaque of the left carotid bulb and proximal ICA produces approximately 75% stenosis of the proximal left ICA. Assessment and plan 78-year-old female with multiple comorbidities was brought in ER for strokelike symptoms with speech difficulty. In ER patient underwent immediate CT scan and rule out hemorrhage. She was given labetalol IV to control blood pressure for TPA. Patient tolerated TPN well, spontaneously moving all extremities but speech is still abnormal with word salad. Post TPA CTA head and neck was obtained to rule out any embolus or thrombus accessible for mechanical thrombectomy. CTA did not show any such lesion. Patient being admitted to ICU S/P suspected stroke, S/ P TPA for close monitoring. Given her history of major depressive disorder with psychotic features behavioral abnormality should be ruled out, encephalopathy should be rule out. Neurology has been informed. + Suspected stroke : S/P TPA + Aphasia + Rule out encephalopathy + History of DM, HTN, major depressive disorder with psychotic features, chronic back pain, legally blind secondary to macular degeneration - admit to ICU - Continuous telemetry monitoring - Serial troponin and EKG - MRI brain without contrast in a.m. - 2-D echocardiogram in a.m. - DVT prophylaxis - Obtain lipid profile - Maintain blood pressure under 180/105 with when necessary labetalol - Neurologic consult - Serial neuro checks - Adequate pain control - Sliding scale insulin - Swallow evaluation - OT PT evaluation - Need to reconfirm medications in the morning - Nothing by mouth - No anticoagulation or aspirin for now - obtain B/c for fever spike and repeat CXR PA and lat in am.
[2018-03-21] MEDS ORDERED: GABAPENTIN100 M2 PO (20:23)
[2018-03-21] MEDS ORDERED: TYLENOL WITH C1 EACH PO (20:24)
[2018-03-21] MEDS ORDERED: RISPERIDONE2 M1 PO (20:25)
[2018-03-21] MEDS ORDERED: MIRTAZAPINE15 M2 PO (20:26)
[2018-03-21] MEDS ORDERED: NOVOLOG100 UNIT/2 SC (20:27)
[2018-03-21] MEDS ORDERED: LANTUS SOL100 UNIT/1 SC (20:27)
--- NOTE | 2018-03-21 23:17 | CT SCAN REPORT ---
EXAMINATION: CT ANGIOGRAM HEAD CT ANGIOGRAM NECK CLINICAL INFORMATION: 78-year-old female with altered mental status. COMPARISON: Noncontrast head CT from 03/21/2018. TECHNIQUE: Test bolus sequences followed by intravenous administration 95 mL of Optiray 320 intravenous contrast. Helical imaging was performed in the axial plane from the mediastinum to the skull vertex. The data was processed at the certified performance technologist's workstation for generation of two-dimensional MIP sequences. No three-dimensional images were generated. Note that any estimates of vessel stenosis are based on criteria similar to NASCET criteria. DLP: 1005 mGy-cm FINDINGS: HEAD: No acute findings within the head compared to the noncontrast images acquired on 03/21/2018 at 6:33 PM. Again noted is the cerebral atrophy with commensurate prominence of ventricles and sulci. No intracranial mass, hemorrhage or extra-axial fluid collection. SOFT TISSUES AND LUNG APICES: Lung apices are unremarkable. No soft tissue mass, fluid collection or lymphadenopathy within the neck. Thyroid gland is atrophied. NECK CTA: There is atherosclerosis of the aortic arch. There is a classic three-vessel configuration of the aortic arch. At this chronic plaque produces mild stenosis of proximal left subclavian artery and proximal right subclavian artery. The vertebral arteries are widely patent. Mild atherosclerotic plaque of each common carotid artery. Calcified atherosclerotic plaque of the left carotid bulb and proximal ICA produces approximately 75% stenosis of the proximal ICA. The atherosclerotic plaque of the right carotid bulb and proximal ICA produces < 50% stenosis of the proximal right ICA. No acute findings. No evidence of carotid artery dissection. CRANIAL CTA: The petrous, cavernous and supraclinoid segments of the ICA are patent. There is atherosclerosis of the cavernous carotid arteries without significant luminal narrowing. The basilar artery is widely patent. There is normal opacification of the major intracranial vessels. No acute proximal large vessel occlusion, focal flow-limiting stenosis, or saccular intracranial aneurysm is identified. No abnormal parenchymal enhancement or regional oligemia is visualized. IMPRESSION: 1. No CT imaging evidence of acute intracranial infarction, mass or hemorrhage. 2. Atherosclerotic disease of carotid arteries. The atherosclerotic plaque of the left carotid bulb and proximal ICA produces approximately 75% stenosis of the proximal left ICA.
[2018-03-22] VITALS: BP 170/74
[2018-03-22 02:36] LABS: ABSOLUTE BASOPHIL COUNT 0 /CUMM (0.0-0.2); ABSOLUTE EOSINOPHIL COUNT 0 /CUMM (0.0-0.7); ABSOLUTE GRANULOCYTE CT 4.7 /CUMM (1.4-6.5); ABSOLUTE LYMPH COUNT 1.4 /CUMM (1.2-3.4); ABSOLUTE MONOCYTE COUNT 0.6 /CUMM (0.10-0.60); BASOPHIL % 0.2 % (0.0-2.0); EOSINOPHIL % 0.1 % (0-5); HEMATOCRIT 34.2 % (37-47); MEAN CORPUSCULAR HGB 31.1 PG (27.0-31.0); MEAN CORPUSCULAR HGB CONC 34.9 G/DL (33.0-37.0); MEAN CORPUSCULAR VOLUME 89.2 FL (81.0-99.0); PLATELET COUNT 221 /CUMM (130-400); RBC DISTRIBUTION WIDTH 14.1 % (11.5-14.5); RED BLOOD CELL CT 3.83 /CUMM (4.20-5.40); WHITE BLOOD CELL COUNT 6.7 /CUMM (4.8-10.8)
[2018-03-22 02:40] LABS: GRANULOCYTE % 70.3 % (42.2-75.2)
--- NOTE | 2018-03-22 04:06 | Admission Certification ---
Admission Certification Certification Statement - As attending physician, I certify that at the time of - admission, based on clinical presentation, severity of - symptoms, need for further diagnostic testing and - therapeutic interventions, and risk of adverse outcomes - without in-hospital treatment, in my clinical assessment, - this patient requires an acute hospital stay for a minimum - of two nights or longer. I have also considered psychsocial - factors such as support system, advanced age, financial - issues, cognitive issues, and failed out-patient treatments, - past re-admission history, safety of patient, and lack of - compliance as applicable. Specific rationale supporting this admission is: Aphasia, Suspected stroke S/P TPA
--- NOTE | 2018-03-22 07:34 | RADIOLOGY REPORT ---
EXAMINATION: XR PORTABLE CHEST CLINICAL INFORMATION: Fever of unknown origin; question pneumonia. COMPARISON: Prior chest radiographs, most recently 11/02/2016. TECHNIQUE: Portable frontal view of the chest was obtained. FINDINGS: The heart, great vessels, pulmonary vasculature and mediastinum are stable. There is atherosclerotic change of the aortic knob. The lungs show no infiltrate, effusion or pneumothorax. There is no acute osseous abnormality. There is generalized bony demineralization. IMPRESSION: Unremarkable examination.
[2018-03-22 08:00] VITALS: BP 136/62
--- NOTE | 2018-03-22 08:41 | Cons- CRCU ---
Marline Colon 03/22/18 0840: General Information and HPI Consulting Request Date of Consult: 03/22/18 Requested By: Arnie Urban History of Present Illness: Ms. Garg is a 78-year-old female, with PMH: DM, HTN, major depressive disorder with psychotic features, chronic back pain, history of uterine cancer S/P hysterectomy, legally blind secondary to macular degeneration, back surgery,hip surgery x 4 2/2 avascular necrosis, bilateral knee surgery. Patient was brought to ER by EMS, with chief complaint troubles with speech/ confusion, last seen normal 1630 on the day of admission. History mostly obtained from patient's granddaughter (ICU nurse at [address] [place] [address]). The granddaughter was called by the patient around 1630, appear to be confused over the phone, with normal speech at first, however after 10 minutes, patient called back and is more confused and a facial appearance. The granddaughter went to see the patient, found that patient was to follow instructions, and the quick neuro exam showed expressive aphasia with cerumen talking, however no specific complaint/loss of consciousness/muscle rigidity/seizures. On arrival, at [facility] rule out acute hemorrhagic stroke, and patient was within the window for TPA administration, after the ER doctor had a discussion about the risks (including bleeding which could be fatal as well), and the benefits (as some patients would have it) about starting TPA on the patient. The power of privacy attorney made the decision and the patient is now being managed per TPA protocol. Her initial blood pressure was high, thus he required IV beta jae to get it under control before starting the TPA. Since the TPA has been started, the granddaughter mentions that the patient is slightly improving in terms of probably understanding the instructions/questions , but continues to have expression problems with non-meaningful words being verbalized. Patient seems to be frustrated about it as well. Of note, patient had a near syncopal episode last Saturday, which lasted around 5 minutes, when her blood sugar were checked which was normal, and the patient had been eating and drinking well, and was compliant on her medications. She had refused to get further evaluated with any healthcare provider at that time, but the family was concerned if she had a TIA then given her long history of carotid stenosis. Allergies/Medications Allergies: Coded Allergies: No Known Allergies (03/21/18) Home Med List: Aspirin (Ecotrin*) 81 MG TABLET.DR 1 TAB PO DAILY HEART/BLOOD (Reported) Atenolol 25 MG TABLET 1 TAB PO DAILY BP (Reported) Atropine Sulfate 1 % DROPS BOTH EYES (Reported) Brimonidine Tartrate/Timolol (Combigan Eye Drops) 0.2 %-0.5 % DROPS 1 DRP OP BID EYE (Reported) Cyanocobalamin (Vitamin B-12) 1,000 MCG TABLET 1 TAB PO DAILY SUPPLEMENT ( Reported) Furosemide 20 MG TABLET 1 TAB PO PRN DIURETIC (Reported) Gabapentin 100 MG CAPSULE 1 CAP PO TID NERVE PAIN (Reported) Insulin Aspart (Novolog) (Unknown Strength) VIAL (Unknown Dose) SC TIDAC/HS DM (Reported) Insulin Glargine,Hum.rec.anlog (Lantus Solostar) 100 UNIT/ML (3 ML) INSULN.PEN 9 UNIT SC QPM DM (Reported) Magnesium Oxide (Magox 400) 400 MG TABLET 1 TAB PO BID SUPPLEMENT (Reported) Mirtazapine 15 MG TABLET 1 TAB PO QHS INSOMNIA (Reported) [place]-3 Fatty Acids (Fish Oil Concentrate) 1,000 MG CAPSULE 1 SGL PO DAILY SUPPLEMENT (Reported) Prednisolone Acetate (Omnipred) 1 % DROPS.SUSP 1 GTT OU Saturday BOTH EYES (Reported) Risperidone 2 MG TABLET 1 TAB PO QHS SCHIZOPHRENIA (Reported) Sodium Chloride ([place]-128) 2 % DROPS 1 DRP OU TID BOTH EYES (Reported) Tylenol With Codeine (Tylenol With Codeine #3 Tablet) 300 MG-30 MG TABLET 1 TAB PO BID PAIN (Reported) Vit A/Vit C/Vit E/Zinc/Copper (Preservision Areds Softgel) 14,320-226 CAPSULE 1 SGL PO BID SUPPLEMENT (Reported) Review of Systems Review of Systems Constitutional: Reports: see HPI. 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 No other family history of epilepsy). Psychosocial History Where Do You Live? Home Who Do You Live With? self Services at Home: None Primary Language: Jordanian Smoking Status: Former Smoker (in 1950s (for >10 yr)) ETOH Use: denies use Illicit Drug Use: denies illicit drug use Power of Voltage Tester/HCP? yes (granddaughter Padma Workman) Name of POA/HCP: Padma Workman Functional Ability ADLs Independent: dressing, eating, toileting, bathing. Ambulation: cane IADLs Independent: food prep, telephone, medication admin. Needs Assist: shopping, housework, finances, transportation. Exam & Diagnostic Data Last 24 Hrs of Vital Signs/I&O Vital Signs Date Time Temp Pulse Resp B/P B/P Pulse O2 O2 Flow FiO2 Mean Ox Delivery Rate 03/22 0800 100.3 81 24 136/62 99 Room Air 03/22 0400 99 Room Air Room Air 03/22 0000 98 Room Air Room Air 03/22 0000 100.7 97 22 170/74 98 Room Air Room Air 03/210 98 Room Air Room Air 03/21 2115 100.0 89 18 182/88 99 Room Air 03/21 2106 89 180/78 03/21 2045 92 184/86 99 03/21 2027 99.8 86 18 178/78 100 Room Air 03/21 2012 84 18 184/86 100 Room Air 03/21 1957 87 18 190/80 100 Room Air 03/21 1954 100 Room Air Room Air 03/21 1952 100 190/90 03/21 1942 99.8 100 18 190/90 100 Room Air 03/21 1923 100.5 80 16 178/90 99 Room Air Room Air 03/218 83 195/100 03/21 191 83 16 195/100 99 Room Air Room Air 03/21 1908 90 16 205/100 03/21 1908 90 16 205/100 99 Room Air Room Air 03/21 1900 90 205/100 03/21 1900 90 16 198/94 98 Room Air Room Air 03/21 1828 98.2 80 16 221/95 99 Room Air Room Air Intake & Output 03/22 1600 03/22 0800 03/22 0000 Intake Total 750 0 Output Total 970 850 Balance -220 -850 Intake, IV 750 0 Intake, Oral 0 Number 0 0 Bowel Movements Output, Urine 970 850 Patient 85.389 kg 60.81 kg Weight Weight Bed scale Bed scale Measurement Method Physical Exam General Appearance: alert, awake, comfortable, NIHSS 2 (not correct for age/ month Head: atraumatic, normal appearance Respiratory: normal breath sounds, chest non-tender, no respiratory distress Cardiovascular: regular rate/rhythm Gastrointestinal: normal bowel sounds, soft, non-tender Extremities: normal inspection, normal range of motion, no edema Neurologic/Psych: no motor/sensory deficits, awake, alert, expressive aphasia Last 48 Hrs of Labs/Cipriano: Laboratory Tests 03/22/18 0800: Troponin I 0.05 03/22/18 0213: Troponin I 0.05 03/22/18 0213: Hemoglobin A1c Pending, Triglycerides 40, Cholesterol 144, LDL Cholesterol, Calc 56 L, HDL Cholesterol 80 H, Cholesterol/HDL Ratio 2, TSH 3.400, Free T4 0.97 03/22/18 021: Anion Gap 11, Estimated GFR > 60, Glucose 129 H, Calcium 8.7, Phosphorus 3.0, Magnesium 2.0, Total Bilirubin 0.5, AST 26, ALT 25, Albumin 3.4 L, CBC w Diff NO MAN DIFF REQ, RBC 3.83 L, MCV 89.2, MCH 31.1 H, MCHC 34.9, RDW 14.1, MPV 8.0, Gran % 70.3, Lymphocytes % 20.9, Monocytes % 8.5, Eosinophils % 0.1, Basophils % 0.2, Absolute Granulocytes 4.7, Absolute Lymphocytes 1.4, Absolute Monocytes 0.6, Absolute Eosinophils 0, Absolute Basophils 0 03/21/182109: Urine Opiates Screen < 100, Methadone Screen < 40, Barbiturate Screen < 60, Ur Phencyclidine Scrn < 6.00, Amphetamines Screen < 100, U Benzodiazepines Scrn < 85, Urine Cocaine Screen < 50, Urine Cannabis Screen < 5.00 03/21/18 1917: Anion Gap 10, Estimated GFR > 60, BUN/Creatinine Ratio 12.9, Glucose 149 H, Calcium 9.1, Total Bilirubin 0.4, AST 26, ALT 22, Alkaline Phosphatase 122, Troponin I < 0.01, Total Protein 6.7, Albumin 3.5, Globulin 3.2, Albumin/ Globulin Ratio 1.1 03/21/18 1854: PT 10.6, INR 0.97, APTT 26, CBC w Diff NO MAN DIFF REQ, RBC 4.02 L, MCV 90.8, MCH 31.1 H, MCHC 34.2, RDW 14.6 H, MPV 8.1, Gran % 43.4, Lymphocytes % 44.9, Monocytes % 9.6 H, Eosinophils % 1.5, Basophils % 0.6, Absolute Granulocytes 2.1, Absolute Lymphocytes 2.1, Absolute Monocytes 0.5, Absolute Eosinophils 0.1, Absolute Basophils 0 Assessment/Plan CRCU Impression/Plan: VS: Tmax 100.7, under RA In/Out/24hrs: 780/1820 Sedation: none Vent Setting: none [id number]: NGTD Problem List #Suspected Stroke s/p TPA #Expressive Aphasia #PMH of DM, HTN, major depressive disorder with psychotic features, chronic back pain, legally blind secondary to macular degeneration, back surgery, hip surgery x 4 2/2 avascular necrosis, bilateral knee surgery. Respiratory: - No active issues at this point, will continue monitor Infection: - Fever of unknown origin, without leukocytosis/imaging findings. Could be reactive? will cont monitor Cardio: - Pending Echo/Carotid doppler. CTA Neck revealed Atherosclerotic disease of carotid arteries - EKG/Trop x 3 had been negative, however trop increased from <0.01 -> 0.05 - pending cardio consult on further management of BP Hem: - Hgb 12.5 -> 11.9, stable - No leukocytosis, PLT WNL Metabolism: - Grossly WNL, mild hyponatremia 132 Alimentary: - NPO for now pending swallow eval Neuro: - NIHSS stable at 2, most motor/sensory strength x 4 are 5/5, with adequate reflex. - Expressive aphasia? will cont monitor DVT prophylaxis: ALPS NPO IV Access: Peripheral IV DNR/DNI Consult Acknowledgment - Thank you for your consult request. Arnie Mckeon MD 03/22/18 0911: Assessment/Plan CRCU Other Findings/Comments: Arnie Peters M.D. have examined this patient, reviewed available EMR data, personally reviewed images, discussed with resident/PA/CUSTOMER COUNTER REPRESENTATIVE, discussed management plan with housestaff and nursing staff, discussed managment plan all of healthcare providers, discussed management plan with patient and/or family, agreed with resident/PA/CUSTOMER COUNTER REPRESENTATIVE. The past history and parts of the chart have been autopopulated. Impression 78 year old woman * s/p tpa for presumed CVA after presentation of aphasia * DM Plan -neurology consultation, further imaging and a/c per neurology -cardiology evaluation -aspiration precautions -swallowing evaluation -PT/OT -ECHO, carotid dopplers -maintaing bp control -no a/c at this time due to tpa administration -confirm home meds today -glucose management, insulin coverage -hemodynamic/telemetry monitoring DVT prophylaxis at all times - ALPS TTS 45 min Consult Acknowledgment - Thank you for your consult request.
--- NOTE | 2018-03-22 12:11 | Cons- Cardiology ---
General Information and HPI Consulting Request Date of Consult: 03/22/18 Requested By: Brenda Talavera MD Reason for Consult: CVA Source of Information: patient, family Exam Limitations: clinical condition History of Present Illness: This is a 78-year-old female with a past medical history of hypertension, diabetes, neuropathy, depression, macular degeneration, and carotid stenosis who presented to [facility] with speech difficulty which was noted by her family member while they were on the phone; prior to this she was reportedly in her usual state of health. No recent episodes of chest pain, dyspnea, or palpitations. She did have mechanical fall some weeks back and suffered a wrist fracture. No known history of prior CVA. The patient did receive TPA on presentation due to suspicion for acute CVA. She was also noted to be hypertensive. Of note the patient did have a short syncopal episode approximately 1 week ago which was thought possibly due to hypoglycemia but she did not seek medical attention. On my interview with her in the ICU she is resting comfortably but continues to have speech difficulty. Allergies/Medications Allergies: Coded Allergies: No Known Allergies (03/21/18) Home Med List: Aspirin (Ecotrin*) 81 MG TABLET.DR 1 TAB PO DAILY HEART/BLOOD (Reported) Atenolol 25 MG TABLET 1 TAB PO DAILY BP (Reported) Atropine Sulfate 1 % DROPS BOTH EYES (Reported) Brimonidine Tartrate/Timolol (Combigan Eye Drops) 0.2 %-0.5 % DROPS 1 DRP OP BID EYE (Reported) Cyanocobalamin (Vitamin B-12) 1,000 MCG TABLET 1 TAB PO DAILY SUPPLEMENT ( Reported) Furosemide 20 MG TABLET 1 TAB PO PRN DIURETIC (Reported) Gabapentin 100 MG CAPSULE 1 CAP PO TID NERVE PAIN (Reported) Insulin Aspart (Novolog) (Unknown Strength) VIAL (Unknown Dose) SC TIDAC/HS DM (Reported) Insulin Glargine,Hum.rec.anlog (Lantus Solostar) 100 UNIT/ML (3 ML) INSULN.PEN 9 UNIT SC QPM DM (Reported) Magnesium Oxide (Magox 400) 400 MG TABLET 1 TAB PO BID SUPPLEMENT (Reported) Mirtazapine 15 MG TABLET 1 TAB PO QHS INSOMNIA (Reported) [place]-3 Fatty Acids (Fish Oil Concentrate) 1,000 MG CAPSULE 1 SGL PO DAILY SUPPLEMENT (Reported) Prednisolone Acetate (Omnipred) 1 % DROPS.SUSP 1 GTT OU Saturday BOTH EYES (Reported) Risperidone 2 MG TABLET 1 TAB PO QHS SCHIZOPHRENIA (Reported) Sodium Chloride ([place]-128) 2 % DROPS 1 DRP OU TID BOTH EYES (Reported) Tylenol With Codeine (Tylenol With Codeine #3 Tablet) 300 MG-30 MG TABLET 1 TAB PO BID PAIN (Reported) Vit A/Vit C/Vit E/Zinc/Copper (Preservision Areds Softgel) 14,320-226 CAPSULE 1 SGL PO BID SUPPLEMENT (Reported) Current Medications: Current Medications Sig/Bertha Start time Last Medication Dose Route Stop Time Status Admin Alteplase, 5.4 MG BOLUS ONE 03/21 1900 DC 03/21 Recombinant IV 03/21 Alteplase, 48.6 MG ONCE ONE 03/21 1900 DC 03/21 Recombinant IV 03/21 Alteplase, 0 .STK-MED ONE 03/21 1846 DC Recombinant IV Aspirin Buffered 81 MG DAILY 03/22 0900 CAN PO Atropine Sulfate 1 GTT 03/24 0900 UNVr OPH Brimonidine Tartrate 1 GTT BID 03/22 2100 UNVr OPH Gabapentin 100 MG TID 03/22 1400 UNVr PO Insulin Aspart 0 TIDAC 03/22 1200 UNVr SC Insulin Human Regular 4 UNITS .STK-MED ONE 03/22 0026 DC IV 03/22 0027 Insulin Human Regular 0 Q6 03/21 2359 DC 03/22 SC 0620 Labetalol HCl 10 MG ONCE ONE 03/21 2015 DC 03/21 IV 03/21 2016 2040 Labetalol HCl 5 MG ONCE ONE 03/21 2000 DC 03/21 IV 03/21 Labetalol HCl 5 MG ONCE ONE 03/21 1930 CAN IV 03/21 1931 Labetalol HCl 5 MG ONCE ONE 03/21 193 CAN IV 03/21 1931 Labetalol HCl 5 MG ONCE ONE 03/21 193 DC 03/21 IV 03/21 1931 191 Labetalol HCl 5 MG ONCE ONE 03/21 1915 DC 03/21 IV 03/21 191 190 Labetalol HCl 5 MG ONCE ONE 03/21 190 DC 03/21 IV 03/21 190 190 Labetalol HCl 0 .STK-MED ONE 03/21 1859 DC IV Mirtazapine 15 MG .[QHS] 03/22 1115 UNVr PO Risperidone 2 MG .[QHS] 03/22 1115 UNVr PO Sodium Chloride 500 ML BOLUS ONE 03/22 0930 DC 03/22 IV 03/22 1029 0935 Sodium Chloride 500 ML BOLUS ONE 03/22 0615 DC 03/22 IV 03/22 0714 0622 Sodium Chloride 250 ML BOLUS ONE 03/22 0430 DC 03/22 IV 03/22 0529 0432 Review of Systems Review of Systems: Limited due to the patient's speech disturbance Past History Travel History Traveled to [place] past 21 day No Medical History Blood Transfusion Hx: No Neurological: NEUROPATHY EENT: glaucoma, macular degeneration, LEGALLY BLIND - + PERIPHERAL VISION Cardiovascular: hypertension, 79% CAROTID OCCULSION Respiratory: NONE Gastrointestinal: NONE Hepatic: NONE Renal: NONE Musculoskeletal: NONE Psychiatric: major depressive disorder with psychotic features Endocrine: DIABETES (TYPE 2) Blood Disorders: NONE Cancer(s): NONE 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 No other family history of epilepsy). Psychosocial History Where Do You Live? Home Who Do You Live With? self Services at Home: None Primary Language: Bahamian Smoking Status: Former Smoker (in 1950s (for >10 yr)) ETOH Use: denies use Illicit Drug Use: denies illicit drug use Power of Calibrator Barometers/HCP? yes (granddaughter Padma Workman) Name of POA/HCP: Padma Workman Functional Ability ADLs Independent: dressing, eating, toileting, bathing. Ambulation: cane IADLs Independent: food prep, telephone, medication admin. Needs Assist: shopping, housework, finances, transportation. ECHO Results (as available) Report: Impression: 1. Aortic sclerosis 2. Mitral leaflet thickening with annular calcification and minimal mitral insufficiency 3. Normal left ventricle chamber size and systolic function. 4. Mild tricuspid insufficiency with no pulmonary hypertension. Exam & Diagnostic Data Vital Signs and I&O Vital Signs Date Time Temp Pulse Resp B/P B/P Pulse O2 O2 Flow FiO2 Mean Ox Delivery Rate 03/22 0800 99 Room Air 03/22 0800 100.3 81 24 136/62 99 Room Air 03/22 0400 99 Room Air Room Air 03/22 0000 98 Room Air Room Air 03/22 0000 100.7 97 22 170/74 98 Room Air Room Air 03/210 98 Room Air Room Air 03/21 2115 100.0 89 18 182/88 99 Room Air 03/21 2106 89 180/78 03/215 92 184/86 99 03/21 2027 99.8 86 18 178/78 100 Room Air 03/21 2012 84 18 184/86 100 Room Air 03/21 1957 87 18 190/80 100 Room Air 03/21 1954 100 Room Air Room Air 03/21 1952 100 190/90 03/21 194 99.8 100 18 190/90 100 Room Air 03/21 1923 100.5 80 16 178/90 99 Room Air Room Air 03/21 1918 83 195/100 03/21 1914 83 16 195/100 99 Room Air Room Air 03/21 1908 90 16 205/100 03/21 1908 90 16 205/100 99 Room Air Room Air 03/21 1900 90 205/100 / 1900 90 16 198/94 98 Room Air Room Air 03/21 1828 98.2 80 16 221/95 99 Room Air Room Air Intake & Output 03/22 1600 03/22 0800 03/22 0000 03/21 1600 03/21 0800 03/21 0000 Intake Total 750 0 Output Total 970 850 Balance -220 -850 Intake, IV 750 0 Intake, Oral 0 Number 0 0 Bowel Movements Output, Urine 970 850 Patient 134 lb 188 lb 134 lb Weight Weight Bed scale Bed scale Measurement Method Physical Exam: General: no apparent distress. Eyes: No obvious scleral icterus. HEENT: No jugular venous distention or abnormal jugular venous pulsations. Cardiovascular: Normal intensity S1/S2. Regular. 1 out of 6 systolic murmur. Respiratory: Lungs clear to auscultation bilaterally. Abdomen: Soft, nontender with no guarding or rebound tenderness. Musculoskeletal: No clubbing or cyanosis noted Skin: warm Neurologic: Speech defect noted Labs/Cipriano Results: Laboratory Tests 03/22 03/22 03/22 03/22 0800 0213 0213 0213 Chemistry Sodium (137 - 145 mmol/L) 132 L Potassium (3.5 - 5.1 mmol/L) 4.1 Chloride (98 - 107 mmol/L) 101 Carbon Dioxide (22 - 30 mmol/L) 21 L Anion Gap (5 - 16) 11 BUN (7 - 17 mg/dL) 9 Creatinine (0.5 - 1.0 mg/dL) 0.7 Estimated GFR (>60 ml/min) > 60 Glucose (65 - 99 mg/dL) 129 H Hemoglobin A1c (4.2 - 5.8 %) Pending Calcium (8.4 - 10.2 mg/dL) 8.7 Phosphorus (2.5 - 4.5 mg/dL) 3.0 Magnesium (1.6 - 2.3 mg/dL) 2.0 Total Bilirubin (0.2 - 1.3 mg/dL) 0.5 AST (14 - 36 U/L) 26 ALT (9 - 52 U/L) 25 Troponin I (< 0.11 ng/ml) 0.05 0.05 Albumin (3.5 - 5.0 g/dL) 3.4 L Triglycerides (<150 mg/dL) 40 Cholesterol (<200 MG/DL) 144 LDL Cholesterol, Calc (65 - 129 mg/dL) 56 L HDL Cholesterol (40 - 60 mg/dL) 80 H Cholesterol/HDL Ratio (0.00 - 4.23 %) 2 TSH (0.270 - 4.200 uIU/mL) 3.400 Free T4 (0.78 - 2.44 ng/dL) 0.97 Hematology CBC w Diff NO MAN DIFF REQ WBC (4.8 - 10.8 /CUMM) 6.7 RBC (4.20 - 5.40 /CUMM) 3.83 L Hgb (12.0 - 16.0 G/DL) 11.9 L Hct (37 - 47 %) 34.2 L MCV (81.0 - 99.0 FL) 89.2 MCH (27.0 - 31.0 PG) 31.1 H MCHC (33.0 - 37.0 G/DL) 34.9 RDW (11.5 - 14.5 %) 14.1 Plt Count (130 - 400 /CUMM) 221 MPV (7.4 - 10.4 FL) 8.0 Gran % (42.2 - 75.2 %) 70.3 Lymphocytes % (20.5 - 51.1 %) 20.9 Monocytes % (1.7 - 9.3 %) 8.5 Eosinophils % (0 - 5 %) 0.1 Basophils % (0.0 - 2.0 %) 0.2 Absolute Granulocytes (1.4 - 6.5 /CUMM) 4.7 Absolute Lymphocytes (1.2 - 3.4 /CUMM) 1.4 Absolute Monocytes (0.10 - 0.60 /CUMM) 0.6 Absolute Eosinophils (0.0 - 0.7 /CUMM) 0 Absolute Basophils (0.0 - 0.2 /CUMM) 0 03/21 1854 Chemistry Sodium (137 - 145 mmol/L) 133 L Potassium (3.5 - 5.1 mmol/L) 4.2 Chloride (98 - 107 mmol/L) 100 Carbon Dioxide (22 - 30 mmol/L) 22 Anion Gap (5 - 16) 10 BUN (7 - 17 mg/dL) 9 Creatinine (0.5 - 1.0 mg/dL) 0.7 Estimated GFR (>60 ml/min) > 60 BUN/Creatinine Ratio (7 - 25 %) 12.9 Glucose (65 - 99 mg/dL) 149 H Calcium (8.4 - 10.2 mg/dL) 9.1 Total Bilirubin (0.2 - 1.3 mg/dL) 0.4 AST (14 - 36 U/L) 26 ALT (9 - 52 U/L) 22 Alkaline Phosphatase (<127 U/L) 122 Troponin I (< 0.11 ng/ml) < 0.01 Total Protein (6.3 - 8.2 g/dL) 6.7 Albumin (3.5 - 5.0 g/dL) 3.5 Globulin (1.9 - 4.2 gm/dL) 3.2 Albumin/Globulin Ratio (1.1 - 2.2 %) 1.1 Coagulation PT (9.4 - 12.5 SEC) 10.6 INR (0.90 - 1.19) 0.97 APTT (25 - 37 SEC) 26 Hematology CBC w Diff NO MAN DIFF REQ WBC (4.8 - 10.8 /CUMM) 4.8 RBC (4.20 - 5.40 /CUMM) 4.02 L Hgb (12.0 - 16.0 G/DL) 12.5 Hct (37 - 47 %) 36.5 L MCV (81.0 - 99.0 FL) 90.8 MCH (27.0 - 31.0 PG) 31.1 H MCHC (33.0 - 37.0 G/DL) 34.2 RDW (11.5 - 14.5 %) 14.6 H Plt Count (130 - 400 /CUMM) 225 MPV (7.4 - 10.4 FL) 8.1 Gran % (42.2 - 75.2 %) 43.4 Lymphocytes % (20.5 - 51.1 %) 44.9 Monocytes % (1.7 - 9.3 %) 9.6 H Eosinophils % (0 - 5 %) 1.5 Basophils % (0.0 - 2.0 %) 0.6 Absolute Granulocytes (1.4 - 6.5 /CUMM) 2.1 Absolute Lymphocytes (1.2 - 3.4 /CUMM) 2.1 Absolute Monocytes (0.10 - 0.60 /CUMM) 0.5 Absolute Eosinophils (0.0 - 0.7 /CUMM) 0.1 Absolute Basophils (0.0 - 0.2 /CUMM) 0 Toxicology Urine Opiates Screen (>2000 NG/ML) < 100 Methadone Screen (>300 NG/ML) < 40 Barbiturate Screen (>200 NG/ML) < 60 Ur Phencyclidine Scrn (>25 NG/ML) < 6.00 Amphetamines Screen (>1000 NG/ML) < 100 U Benzodiazepines Scrn (>200 NG/ML) < 85 Urine Cocaine Screen (>300 NG/ML) < 50 Urine Cannabis Screen (>50 NG/ML) < 5.00 Diagnostic Data EKG Results Tracing was personally reviewed and shows sinus rhythm CXR Results No CHF Other Results Telemetry tracings were personally reviewed and shows sinus rhythm Neck CT 1. No CT imaging evidence of acute intracranial infarction, mass or hemorrhage. 2. Atherosclerotic disease of carotid arteries. The atherosclerotic plaque of the left carotid bulb and proximal ICA produces approximately 75% stenosis of the proximal left ICA. Assessment/Plan Assessment/Plan 1. Acute CVA status post TPA 2. Hypertension 3. Diabetes 4. History of carotid stenosis The patient presents status post acute CVA and has already received TPA. Blood pressure targets per neurology post CVA/TPA. Start aspirin when cleared by neurology. I suspect she will also need statin therapy given her history of carotid stenosis if no obvious contraindication. Obtain a transthoracic echocardiogram and monitor for any evidence of silent atrial fibrillation on telemetry. Bridger Jones MD [facility] Consult Acknowledgment - Thank you for your consult request.
--- NOTE | 2018-03-22 12:32 | ULTRASOUND REPORT ---
EXAMINATION: DUPLEX BILATERAL CAROTID ULTRASOUND CLINICAL INFORMATION: Slurred speech and weakness. COMPARISON: 07/14/2010. TECHNIQUE: \H\B\N\ilateral carotid US was performed using real-time ultrasound and Doppler techniques (integrating B-mode 2D vascular images, Doppler spectral analysis and color flow Doppler imaging). These techniques were utilized to interrogate the extracranial carotid and vertebral arteries bilaterally. The degree of stenosis is based off criteria similar to NASCET. FINDINGS: Right side: 1. A small amount of hyperechoic plaque is seen in the ECA/ICA region. 2. The common carotid artery velocity is 85 cm/s. 3. The proximal internal carotid artery velocities are 88 cm/s systolic and 14 cm/s diastolic. 4. The external carotid artery velocity is 116 cm/s. Left side: 1. A small amount of hyperechoic plaque is seen in the ECA/ICA region. 2. The common carotid artery velocity is 76 cm/s. 3. The proximal internal carotid artery velocities are 82 cm/s systolic and 8 cm/s diastolic. 4. The external carotid artery velocity is 114 cm/s. ADDITIONAL FINDINGS: 1. The vertebral arteries show antegrade flow. IMPRESSION: 1. RIGHT: Minimal, nonhemodynamically significant stenosis of the proximal right internal carotid artery corresponding to a 0-49% stenosis by velocity criteria. 2. LEFT: Minimal, nonhemodynamically significant stenosis of the proximal left internal carotid artery corresponding to a 0-49% stenosis by velocity criteria. 3. Antegrade flow seen via the bilateral vertebral arteries.
[2018-03-22 16:00] VITALS: BP 162/76
--- NOTE | 2018-03-22 16:22 | Cons- Neurology ---
General Information and HPI Consulting Request Date of Consult: 03/22/18 Requested By: Brenda Talavera MD Reason for Consult: Acute Stroke s/p TPA Source of Information: patient, family, old records, staff Exam Limitations: no limitations History of Present Illness: This is a pleasant 78 year old right handed woman that was brought in from home last night after being noted to develop a sudden expressive aphasia and producing garbled "word salad". This was her only deficit but continued into her arrival in the ER. I was called by the ER and being that she had no clear contraindications and was within window was given TPA. She tolerated well and today is seeing her speech expression improve. She has been able to tolerate a meal well. No headaches. Allergies/Medications Allergies: Coded Allergies: No Known Allergies (03/21/18) Home Med List: Aspirin (Ecotrin*) 81 MG TABLET.DR 1 TAB PO DAILY HEART/BLOOD (Reported) Atenolol 25 MG TABLET 1 TAB PO DAILY BP (Reported) Atropine Sulfate 1 % DROPS BOTH EYES (Reported) Brimonidine Tartrate/Timolol (Combigan Eye Drops) 0.2 %-0.5 % DROPS 1 DRP OP BID EYE (Reported) Cyanocobalamin (Vitamin B-12) 1,000 MCG TABLET 1 TAB PO DAILY SUPPLEMENT ( Reported) Furosemide 20 MG TABLET 1 TAB PO PRN DIURETIC (Reported) Gabapentin 100 MG CAPSULE 1 CAP PO TID NERVE PAIN (Reported) Insulin Aspart (Novolog) (Unknown Strength) VIAL (Unknown Dose) SC TIDAC/HS DM (Reported) Insulin Glargine,Hum.rec.anlog (Lantus Solostar) 100 UNIT/ML (3 ML) INSULN.PEN 9 UNIT SC QPM DM (Reported) Magnesium Oxide (Magox 400) 400 MG TABLET 1 TAB PO BID SUPPLEMENT (Reported) Mirtazapine 15 MG TABLET 1 TAB PO QHS INSOMNIA (Reported) [place]-3 Fatty Acids (Fish Oil Concentrate) 1,000 MG CAPSULE 1 SGL PO DAILY SUPPLEMENT (Reported) Prednisolone Acetate (Omnipred) 1 % DROPS.SUSP 1 GTT OU SATURDAY WED SATURDAY BOTH EYES (Reported) Risperidone 2 MG TABLET 1 TAB PO QHS SCHIZOPHRENIA (Reported) Sodium Chloride ([place]-128) 2 % DROPS 1 DRP OU TID BOTH EYES (Reported) Tylenol With Codeine (Tylenol With Codeine #3 Tablet) 300 MG-30 MG TABLET 1 TAB PO BID PAIN (Reported) Vit A/Vit C/Vit E/Zinc/Copper (Preservision Areds Softgel) 14,320-226 CAPSULE 1 SGL PO BID SUPPLEMENT (Reported) Current Medications: Current Medications Sig/Bertha Start time Last Medication Dose Route Stop Time Status Admin Alteplase, 5.4 MG BOLUS ONE 03/21 1900 DC 03/21 Recombinant IV 03/21 Alteplase, 48.6 MG ONCE ONE 03/21 1900 DC 03/21 Recombinant IV 03/21 Alteplase, 0 .STK-MED ONE 03/21 1846 DC Recombinant IV Aspirin Buffered 81 MG DAILY 03/22 0900 CAN PO Atropine Sulfate 1 GTT 03/24 0900 AC OPH Brimonidine Tartrate 1 GTT BID 03/22 2100 AC OPH Gabapentin 100 MG TID 03/22 1400 AC 03/22 PO 1532 Insulin Aspart 0 TIDAC/HS 03/22 1700 AC SC Insulin Aspart 0 TIDAC 03/22 1200 DC SC Insulin Human Regular 2 UNITS .STK-MED ONE 03/22 0617 DC IV 03/22 0618 Insulin Human Regular 4 UNITS .STK-MED ONE 03/22 0026 DC IV 03/22 0027 Insulin Human Regular 0 Q6 03/21 2359 DC 03/22 SC 0620 Labetalol HCl 10 MG ONCE ONE 03/21 2015 DC 03/21 IV 03/21 2016 204 Labetalol HCl 5 MG ONCE ONE 03/21 2000 DC 03/21 IV 03/21 Labetalol HCl 5 MG ONCE ONE 03/21 1930 CAN IV 03/21 1931 Labetalol HCl 5 MG ONCE ONE 03/21 193 CAN IV 03/21 1931 Labetalol HCl 5 MG ONCE ONE 03/21 1930 DC 03/21 IV 03/21 1931 191 Labetalol HCl 5 MG ONCE ONE 03/21 1915 DC 03/21 IV 03/21 1916 190 Labetalol HCl 5 MG ONCE ONE 03/21 190 DC 03/21 IV 03/21 1901 190 Labetalol HCl 0 .STK-MED ONE 03/21 1859 DC IV Mirtazapine 15 MG AT BEDTIME 03/22 2100 AC PO Risperidone 2 MG AT BEDTIME 03/22 2100 AC PO Sodium Chloride 500 ML BOLUS ONE 03/22 0930 DC / IV 03/22 1029 0935 Sodium Chloride 500 ML BOLUS ONE 03/22 0615 DC /16 IV 03/22 0714 0622 Sodium Chloride 250 ML BOLUS ONE 03/22 0430 DC / IV / 0529 0432 Review of Systems Review of Systems: As per HPI. No other pertinents. 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 No other family history of epilepsy). Psychosocial History Where Do You Live? Home Who Do You Live With? self Services at Home: None Primary Language: Burmese Smoking Status: Former Smoker (in 1950s (for >10 yr)) ETOH Use: denies use Illicit Drug Use: denies illicit drug use Power of Manager Part/HCP? yes (granddaughter Padma Workman) Name of POA/HCP: Padma Workman Functional Ability ADLs Independent: dressing, eating, toileting, bathing. Ambulation: cane IADLs Independent: food prep, telephone, medication admin. Needs Assist: shopping, housework, finances, transportation. Exam & Diagnostic Data Vital Signs and I&O Vital Signs Date Time Temp Pulse Resp B/P B/P Pulse O2 O2 Flow FiO2 Mean Ox Delivery Rate 03/22 1600 96 Room Air 03/22 1200 98 Room Air 03/22 0800 99 Room Air 03/22 0800 100.3 81 24 136/62 99 Room Air 03/22 0400 99 Room Air Room Air 03/22 0000 98 Room Air Room Air 03/22 0000 100.7 97 22 170/74 98 Room Air Room Air 03/21 2130 98 Room Air Room Air 03/21 2115 100.0 89 18 182/88 99 Room Air 03/21 2106 89 180/78 03/21 2045 92 184/86 99 03/21 2027 99.8 86 18 178/78 100 Room Air 03/21 2012 84 18 184/86 100 Room Air 03/21 1957 87 18 190/80 100 Room Air 03/21 1954 100 Room Air Room Air 03/21 1952 100 190/90 03/21 1942 99.8 100 18 190/90 100 Room Air 03/21 1923 100.5 80 16 178/90 99 Room Air Room Air 03/21 1918 83 195/100 03/21 1914 83 16 195/100 99 Room Air Room Air 03/218 90 16 205/100 03/21 1908 90 16 205/100 99 Room Air Room Air 03/21 1900 90 205/100 03/21 1900 90 16 198/94 98 Room Air Room Air 03/218 98.2 80 16 221/95 99 Room Air Room Air Intake & Output 03/22 1600 03/22 0800 03/22 0000 Intake Total 560 750 0 Output Total 1300 970 850 Balance -740 -220 -850 Intake, IV 500 750 0 Intake, Oral 60 0 Number 0 0 Bowel Movements Output, Urine 1300 970 850 Patient 134 lb 188 lb 134 lb Weight Weight Bed scale Bed scale Measurement Method Physical Exam: Alert and oriented. Hesitant slow speech but able to form grammatically correct sentences. S1 and S2 normal RRR. EOMI, ROSETTA, face symmetric, VF intact, V1-V3 normal sensation, tongue midline and uvula in midline. Hearing reduced. Strength is -5/5 with no drift. Equal tapping in both hands. FNF slow but accurate. Reflexes attenuated and toes mute. Gait deferred. Naming 2/2. Last 48 Hours of Lab Results: Laboratory Tests 03/22 03/22 03/22 03/22 0800 0213 0213 0213 Chemistry Sodium (137 - 145 mmol/L) 132 L Potassium (3.5 - 5.1 mmol/L) 4.1 Chloride (98 - 107 mmol/L) 101 Carbon Dioxide (22 - 30 mmol/L) 21 L Anion Gap (5 - 16) 11 BUN (7 - 17 mg/dL) 9 Creatinine (0.5 - 1.0 mg/dL) 0.7 Estimated GFR (>60 ml/min) > 60 Glucose (65 - 99 mg/dL) 129 H Hemoglobin A1c (4.2 - 5.8 %) Pending Calcium (8.4 - 10.2 mg/dL) 8.7 Phosphorus (2.5 - 4.5 mg/dL) 3.0 Magnesium (1.6 - 2.3 mg/dL) 2.0 Total Bilirubin (0.2 - 1.3 mg/dL) 0.5 AST (14 - 36 U/L) 26 ALT (9 - 52 U/L) 25 Troponin I (< 0.11 ng/ml) 0.05 0.05 Albumin (3.5 - 5.0 g/dL) 3.4 L Triglycerides (<150 mg/dL) 40 Cholesterol (<200 MG/DL) 144 LDL Cholesterol, Calc (65 - 129 mg/dL) 56 L HDL Cholesterol (40 - 60 mg/dL) 80 H Cholesterol/HDL Ratio (0.00 - 4.23 %) 2 TSH (0.270 - 4.200 uIU/mL) 3.400 Free T4 (0.78 - 2.44 ng/dL) 0.97 Hematology CBC w Diff NO MAN DIFF REQ WBC (4.8 - 10.8 /CUMM) 6.7 RBC (4.20 - 5.40 /CUMM) 3.83 L Hgb (12.0 - 16.0 G/DL) 11.9 L Hct (37 - 47 %) 34.2 L MCV (81.0 - 99.0 FL) 89.2 MCH (27.0 - 31.0 PG) 31.1 H MCHC (33.0 - 37.0 G/DL) 34.9 RDW (11.5 - 14.5 %) 14.1 Plt Count (130 - 400 /CUMM) 221 MPV (7.4 - 10.4 FL) 8.0 Gran % (42.2 - 75.2 %) 70.3 Lymphocytes % (20.5 - 51.1 %) 20.9 Monocytes % (1.7 - 9.3 %) 8.5 Eosinophils % (0 - 5 %) 0.1 Basophils % (0.0 - 2.0 %) 0.2 Absolute Granulocytes (1.4 - 6.5 /CUMM) 4.7 Absolute Lymphocytes (1.2 - 3.4 /CUMM) 1.4 Absolute Monocytes (0.10 - 0.60 /CUMM) 0.6 Absolute Eosinophils (0.0 - 0.7 /CUMM) 0 Absolute Basophils (0.0 - 0.2 /CUMM) 0 03/21 191 1854 Chemistry Sodium (137 - 145 mmol/L) 133 L Potassium (3.5 - 5.1 mmol/L) 4.2 Chloride (98 - 107 mmol/L) 100 Carbon Dioxide (22 - 30 mmol/L) 22 Anion Gap (5 - 16) 10 BUN (7 - 17 mg/dL) 9 Creatinine (0.5 - 1.0 mg/dL) 0.7 Estimated GFR (>60 ml/min) > 60 BUN/Creatinine Ratio (7 - 25 %) 12.9 Glucose (65 - 99 mg/dL) 149 H Calcium (8.4 - 10.2 mg/dL) 9.1 Total Bilirubin (0.2 - 1.3 mg/dL) 0.4 AST (14 - 36 U/L) 26 ALT (9 - 52 U/L) 22 Alkaline Phosphatase (<127 U/L) 122 Troponin I (< 0.11 ng/ml) < 0.01 Total Protein (6.3 - 8.2 g/dL) 6.7 Albumin (3.5 - 5.0 g/dL) 3.5 Globulin (1.9 - 4.2 gm/dL) 3.2 Albumin/Globulin Ratio (1.1 - 2.2 %) 1.1 Coagulation PT (9.4 - 12.5 SEC) 10.6 INR (0.90 - 1.19) 0.97 APTT (25 - 37 SEC) 26 Hematology CBC w Diff NO MAN DIFF REQ WBC (4.8 - 10.8 /CUMM) 4.8 RBC (4.20 - 5.40 /CUMM) 4.02 L Hgb (12.0 - 16.0 G/DL) 12.5 Hct (37 - 47 %) 36.5 L MCV (81.0 - 99.0 FL) 90.8 MCH (27.0 - 31.0 PG) 31.1 H MCHC (33.0 - 37.0 G/DL) 34.2 RDW (11.5 - 14.5 %) 14.6 H Plt Count (130 - 400 /CUMM) 225 MPV (7.4 - 10.4 FL) 8.1 Gran % (42.2 - 75.2 %) 43.4 Lymphocytes % (20.5 - 51.1 %) 44.9 Monocytes % (1.7 - 9.3 %) 9.6 H Eosinophils % (0 - 5 %) 1.5 Basophils % (0.0 - 2.0 %) 0.6 Absolute Granulocytes (1.4 - 6.5 /CUMM) 2.1 Absolute Lymphocytes (1.2 - 3.4 /CUMM) 2.1 Absolute Monocytes (0.10 - 0.60 /CUMM) 0.5 Absolute Eosinophils (0.0 - 0.7 /CUMM) 0.1 Absolute Basophils (0.0 - 0.2 /CUMM) 0 Toxicology Urine Opiates Screen (>2000 NG/ML) < 100 Methadone Screen (>300 NG/ML) < 40 Barbiturate Screen (>200 NG/ML) < 60 Ur Phencyclidine Scrn (>25 NG/ML) < 6.00 Amphetamines Screen (>1000 NG/ML) < 100 U Benzodiazepines Scrn (>200 NG/ML) < 85 Urine Cocaine Screen (>300 NG/ML) < 50 Urine Cannabis Screen (>50 NG/ML) < 5.00 Imaging/Other Studies: IMPRESSION: 1. RIGHT: Minimal, nonhemodynamically significant stenosis of the proximal right internal carotid artery corresponding to a 0-49% stenosis by velocity criteria. 2. LEFT: Minimal, nonhemodynamically significant stenosis of the proximal left internal carotid artery corresponding to a 0-49% stenosis by velocity criteria. 3. Antegrade flow seen via the bilateral vertebral arteries. CTA>> IMPRESSION: 1. No CT imaging evidence of acute intracranial infarction, mass or hemorrhage. 2. Atherosclerotic disease of carotid arteries. The atherosclerotic plaque of the left carotid bulb and proximal ICA produces approximately 75% stenosis of the proximal left ICA. Assessment/Plan Assessment: 78 year old woman with an acute left frontal infaction s/p TPA with improvement in speech. Recommendations: 1. Repeat CT at 24 hours. 2. Obtain MRI brain. 3. Echo. 4. Telemetry. 5. Once cleared with CT start PLAVIX instead of aspirin. 6. Start Atorvastatin 80mg PO qhs. 7. Add Lisinopril 5mg PO daily. 8. Speech therapy and PT. 9. Consider REVEAL monitor as outpt to screen for Afib. Consult Acknowledgment - Thank you for your consult request.
--- NOTE | 2018-03-22 20:25 | ECHOCARDIOGRAM REPORT ---
LANCEMarch Age: 78 : 1940 Gender: F Exam Date: 03/22/2018 09:25 Exam Location: [facility] Ht (in): 60 Wt (lb): 132 BSA: 1.61 BP: 170 / 74 Ordering Physician: Ryan Bridges MD Referring Physician: Ryan Bridges MD Technologist: Alyse Jasso [facility] Room Number: 104 Indications: Rhythm: Sinus Technical Quality: Fair FINDINGS Left Ventricle Normal global left ventricular size, wall thickness, systolic function with no obvious regional wall motion abnormalities. Right Ventricle Normal right ventricular size and function. Right Atrium Normal right atrial size. Left Atrium Left atrial dilatation. Mitral Valve Mitral valve thickened. Mitral annular calcification. Trace to mild mitral regurgitation. Aortic Valve Trileaflet aortic valve. Diffuse thickening (sclerosis) of the aortic valve cusps without reduced excursion. No aortic stenosis. No aortic regurgitation. Tricuspid Valve Structurally normal tricuspid valve. Trace tricuspid regurgitation. Pulmonic Valve Structurally normal pulmonic valve. Trace to mild pulmonic regurgitation. Pericardium No pericardial effusion. Great Vessels Normal size aortic root and proximal ascending aorta. CONCLUSIONS 1. Mild to moderate aortic sclerosis is present with no valvular stenosis or insufficiency. 2. Mitral leaflet thickening is present with anular calcification and minimal to mild mitral insufficiency with mild left atrial enlargement. 3. In the left atrium, at the base of the posterior leaflet / mitral anulus, best seen on the parasternal long axis view, there is an illdefined mobile echodensity present. This may represent acoustic artifact, however, the possibility of other lesions such as vegetation, anular associated thrombus , etc cannot be excluded by these images. Followup images to reassess this region, or a KELBY, would be useful to better assess. 4. There is no significant pericardial fluid present. 5. The left ventricular chamber size and systolic function are normal. 6. Minimal tricuspid insufficiency is present with minimal to mild pulmonic insufficiency and no evidence of pulmonary hypertension. 7. On the apical 4 chamber view thee is also an illdefined echodensity present in the right atrium which appears to be related to acoustic artifact. Followup images are also suggested to better assess this region. Noam Daly M.D. (Electronically Signed) Final Date: 22 March 2018 20:24 MEASUREMENTS (Male / Female) Normal Values 2D ECHO LV Diastolic Diameter PLAX 3.2 cm 4.2 - 5.9 / 3.9 - 5.3 cm LV Systolic Diameter PLAX 2.1 cm 2.1 - 4.0 cm LV Fractional Shortening PLAX 34.4 % 25 - 46 % LV Ejection Fraction 2D Teich 64.8 % IVS Diastolic Thickness 1.2 cm LVPW Diastolic Thickness 1.0 cm LV Relative Wall Thickness 0.7 LVOT Diameter 1.9 cm Aortic Root Diameter 2.9 cm LA Systolic Diameter LX 2.4 cm 3.0 - 4.0 / 2.7 - 3.8 cm LA Volume 39.0 cm 18 - 58 / 22 - 52 cm DOPPLER AV Peak Velocity 159.0 cm/s AV Peak Gradient 10.1 mmHg LVOT Peak Velocity 124.0 cm/s LVOT Peak Gradient 6.2 mmHg AV Area Cont Eq pk 2.2 cm Mitral E Point Velocity 103.0 cm/s Mitral A Point Velocity 129.0 cm/s Mitral E to A Ratio 0.8 MV Deceleration Time 268.0 ms TV Peak Velocity 221.0 cm/s PV Peak Velocity 121.0 cm/s PV Peak Gradient 5.9 mmHg LV E' Lateral Velocity 8.6 cm/s Mitral E to LV E' Lateral Ratio 12.0 LV E' Septal Velocity 6.7 cm/s Mitral E to LV E' Septal Ratio 15.3
--- NOTE | 2018-03-22 23:53 | CT SCAN REPORT ---
EXAMINATION: CT HEAD WITHOUT CONTRAST CLINICAL INFORMATION: Rule out hemorrhage or acute process CVA. COMPARISON: None TECHNIQUE: Contiguous axial imaging was performed from the skull base to vertex without intravenous administration of contrast. DLP: 621 mGy-cm FINDINGS: There is no evidence of acute intracranial hemorrhage or territorial infarction. No abnormal mass effect or midline shift is seen. Byrd to white matter differentiation is well preserved. No extra-axial fluid collections are identified. The ventricles are normal in size. There is no abnormal attenuation within the brain parenchyma. The osseous structures and soft tissues are normal. The mastoid air cells and visualized portions of the paranasal sinuses are well aerated. IMPRESSION: No acute intracranial pathology.
[2018-03-23] VITALS: BP 116/52
[2018-03-23 05:47] LABS: ABSOLUTE BASOPHIL COUNT 0.1 /CUMM (0.0-0.2); ABSOLUTE EOSINOPHIL COUNT 0.2 /CUMM (0.0-0.7); ABSOLUTE GRANULOCYTE CT 2.5 /CUMM (1.4-6.5); ABSOLUTE LYMPH COUNT 1.6 /CUMM (1.2-3.4); ABSOLUTE MONOCYTE COUNT 0.7 /CUMM (0.10-0.60); BASOPHIL % 1.1 % (0.0-2.0); EOSINOPHIL % 3.2 % (0-5); GRANULOCYTE % 49.4 % (42.2-75.2); HEMATOCRIT 33.7 % (37-47); MEAN CORPUSCULAR HGB 30.7 PG (27.0-31.0); MEAN CORPUSCULAR HGB CONC 34.2 G/DL (33.0-37.0); MEAN CORPUSCULAR VOLUME 89.8 FL (81.0-99.0); MEAN PLATELET VOLUME 7.8 FL (7.4-10.4); PLATELET COUNT 210 /CUMM (130-400); RBC DISTRIBUTION WIDTH 14.9 % (11.5-14.5); RED BLOOD CELL CT 3.75 /CUMM (4.20-5.40)
[2018-03-23 08:00] VITALS: BP 130/60
--- NOTE | 2018-03-23 08:25 | PN- Resident CRCU ---
Cyrus HEBERT,Ryan 03/23/18 0824: Subjective HPI/CRCU Issues: Acute ischemic stroke, improving 24 Hour Events: I followed up and examined the patient today. She is resting comfortably, now in a recliner, in his not in distress, and does not offer any complaints. Patient's clinical condition has improved significantly, to the point with she is now very comprehensible, and is able to follow instructions and does not seem to have any cognitive deficits either. I asked her questions in front of her granddaughter she she could answer them clearly and correctly according to her grand-daughter. Objective Vital Signs & I&O Last 8 Hrs of Vitals and I&O: Vital Signs Date Time Temp Pulse Resp B/P B/P Pulse O2 O2 Flow FiO2 Mean Ox Delivery Rate 03/23 0400 95 Room Air Room Air 03/23 0000 94 Room Air Room Air 03/23 0000 97.8 69 28 116/52 94 Room Air Room Air 03/22 2000 97 Room Air Room Air 03/22 1600 99.4 74 20 162/76 97 Room Air 03/22 1600 96 Room Air 03/22 1200 98 Room Air Intake & Output 03/23 1600 03/23 0800 03/23 0000 Intake Total 0 180 Output Total 685 1000 Balance -685 -820 Intake, Oral 0 180 Number 0 0 Bowel Movements Output, Urine 685 1000 Patient 53.269 kg Weight Weight Bed scale Measurement Method Exam General Appearance: well developed/nourished, no apparent distress, alert, awake , comfortable Other Physical Findings: Skin No Rashes, No Breakdown Skin Temp/Moisture Exam: Warm/Dry HEENT Atraumatic, PERRLA, EOMI, dry mucosa Neck Supple, No JVD Cardiovascular Regular Rate, Normal S1, Normal S2, No Murmurs Lungs Clear to Auscultation, Normal Air Movement Abdomen Normal Bowel Sounds, Soft, No Tenderness Neurological BETTER TODAY, grossly intact exam, gait not examined yet Extremities No Clubbing, No Cyanosis, No Edema, Normal Pulses Vascular Normal Pulses, Pulses Symmetrical Current Medications: Current Medications Sig/Bertha Start time Last Medication Dose Route Stop Time Status Admin Atorvastatin Calcium 80 MG 1700 03/22 1700 AC 03/22 PO 1830 Atropine Sulfate 1 GTT 03/24 0900 AC OPH Brimonidine Tartrate 1 GTT BID 03/22 2100 AC 03/22 OPH 2114 Clopidogrel Bisulfate 75 MG DAILY 03/23 0900 AC PO Clopidogrel Bisulfate 75 MG DAILY 03/22 2100 CAN PO Gabapentin 100 MG TID 03/22 1400 AC 03/22 PO 211 Insulin Aspart 0 TIDAC/HS 03/22 1700 AC SC Insulin Aspart 0 TIDAC 03/22 1200 DC SC Insulin Human Regular 0 Q6 03/21 2359 DC 03/22 SC 0620 Lisinopril 5 MG DAILY 03/23 0900 AC PO Mirtazapine 15 MG AT BEDTIME 03/22 2100 AC 03/22 PO 2115 Risperidone 2 MG AT BEDTIME 03/22 2100 AC 03/22 PO 2114 Sodium Chloride 500 ML BOLUS ONE 03/22 0930 DC 03/22 IV 03/22 1029 0935 Impression/Plan Impression/Problem List Impression: 78 yo F with pmh of HTN, Carotid artery disease managed conservatively so far ( Follows Dr Maki), IDDM with peripheral neuropathy, macular degeneration (legally blind), CHFpEF (65% per family), uterine cancer status post hysterectomy, chronic back pain, major depressive disorder with psychotic symptoms, last hospital admission in Oct 2016 for AMS, was noted by her granddaughter over phone to have some confusion and "word salad", after which she had called in EMS and was founf to have stroke and after ruling out intracranial bleed, she was given tPA in the ED and admitted in the ICU. her stay in the ICU has been uneventful and she has been progressing clinically otherwise. The patient was managed in the ICU for the management of following reasons: RESPIRATORY No issues INFECTIOUS DISEASE No issues CARDIOLOGY #No atrial fibrillation noted so far. #TTE showed illdefined mass in left atrium, which could be artifact, vs vegetation among anything, so she will be undergoing a KELBY in the [facility] after overnight fasting. #H/o HTN with hypertensive urgency, better now s/p IV Lebetalol multiple pushes. BP goals were <180/105 due to tPA running and SBP needs to be >160 so as not to decrease the BP rapidly given her hypertensive urgency, but now this has been better and she is on Lisinopril.-Continue Lisinopril #H/o carotid artery stenosis CTA neck shows left side significant narrowing and right side is better. The results are different than USG Doppler which shows minimal narrowing in both carotid arteries. Dr Maki, her vascular surgeon was consulted and i spoke with him over phone who will see the patient tomorrow and also would possibly plan a surgery soon after the discharge. He was OK with current tratment plan. -Continue Plavix, and statin (high intensity) HEMATOLOGY No issues METABOLIC No issues HbA1c still pending ALIMENTARY Eating well, no issues. NEPHROLOGY No issues NEUROLOGY #Acute ischemic CVA She is clinically much better than at admission and is has regained her comprehension, speech and is moving purposefully. tPA is over now and her repeat CT head is still not showing any zone of ischemia. MRI pending. -Serial neurochecks relaxed to q4h (from q2h) -Neurology recs appreciated, getting a Vascular consult -Echo saw an illdefined mass in left atrium, with differentials of thrombus, vegetation or artifact, and needs further clarification, so will get KELBY soon -PT/OT continuing per CVA protocol CHRONIC ISSUES OTHERWISE: All her home meds are on hold for now, including her anti-psychotic meds. MISC: Diet: CC2 but NPO from ID for possible KELBY in the morning (need to discuss with branch service representative) DVT prophylaxis: ALPS Code status: DNR/DNI IV access: Peripheral Family update: Done with the POA (granddaughter) today as well. Problem List: 1. CVA (cerebral vascular accident) 2. Carotid arterial disease Pain Ratin Pain Location: - Pain Goal: Pain 4 or less Pain Plan: prn Tomorrow's Labs & Rationales: CBC (h/h going low) Plan DVT/Prophylaxis: Arnie Robison MD 03/23/18 1139: Attending MD Review Statement Attending Sign Off Attending Cosign Statement: I have: examined this patient, reviewed avalbl EMR data, personally reviewd images, discussd w/resident/PA/HEALTH UNIT SUPERVISOR, discussed mgmt plan w/octavio, discussed mgmt plan w/CM, discussed mgmt plan w/pt, agreed w/resident/PA/HEALTH UNIT SUPERVISOR, amended to note. Other Findings: Arnie Peters M.D. have examined this patient, reviewed available EMR data, personally reviewed images, discussed with resident/PA/HEALTH UNIT SUPERVISOR, discussed management plan with housestaff and nursing staff, discussed managment plan all of healthcare providers, discussed management plan with patient and/or family, agreed with resident/PA/HEALTH UNIT SUPERVISOR. The past history and parts of the chart have been autopopulated. Impression 78 year old woman * s/p tpa for presumed CVA after presentation of aphasia * DM Plan -neurology consultation, further imaging and a/c per neurology - on plavix -cardiology consultatio is appreciated -aspiration precautions -PT/OT -vascular sx evaluation -maintaing bp control -glucose management, insulin coverage -hemodynamic/telemetry monitoring DVT prophylaxis at all times - ALPS TTS 35 min Doing very well, speech improving, can downgrade to telemetry
--- NOTE | 2018-03-23 10:38 | PN- Cardiology ---
Subjective Subjective: Resting comfortably today. No shortness of breath. No palpitations. No chest pain. Objective Vital Signs and I&Os Vital Signs Date Time Temp Pulse Resp B/P B/P Pulse O2 O2 Flow FiO2 Mean Ox Delivery Rate 03/23 0854 75 130/60 03/23 0800 98 Room Air 03/23 0800 99.4 77 20 130/60 98 Room Air 03/23 0400 95 Room Air Room Air 03/23 0000 94 Room Air Room Air 03/23 0000 97.8 69 28 116/52 94 Room Air Room Air 03/22 2000 97 Room Air Room Air 03/22 1600 99.4 74 20 162/76 97 Room Air 03/22 1600 96 Room Air 03/22 1200 98 Room Air Intake & Output 03/23 1600 03/23 0800 03/23 0000 03/22 1600 03/22 0800 03/22 0000 Intake Total 0 180 560 750 0 Output Total 685 1000 1300 970 850 Balance -685 -820 -740 -220 -850 Intake, IV 500 750 0 Intake, Oral 0 180 60 0 Number 0 0 0 0 Bowel Movements Output, Urine 685 1000 1300 970 850 Patient 117 lb 134 lb 188 lb 134 lb Weight Weight Bed scale Bed scale Bed scale Measurement Method Physical Exam: General: no apparent distress. Eyes: No obvious scleral icterus. HEENT: No jugular venous distention or abnormal jugular venous pulsations. Cardiovascular: Normal intensity S1/S2. Regular. 1 out of 6 systolic murmur. Respiratory: Lungs clear to auscultation bilaterally. Abdomen: Soft, nontender with no guarding or rebound tenderness. Musculoskeletal: No clubbing or cyanosis noted Skin: warm Neurologic: Alert Current Medications: Current Medications Sig/Bertha Start time Last Medication Dose Route Stop Time Status Admin Atorvastatin Calcium 80 MG 1700 03/22 1700 AC 03/22 PO 1830 Atropine Sulfate 1 GTT 03/24 0900 AC OPH Brimonidine Tartrate 1 GTT BID 03/22 2100 AC 03/23 OPH 0854 Clopidogrel Bisulfate 75 MG DAILY 03/23 0900 AC 03/23 PO 0854 Clopidogrel Bisulfate 75 MG DAILY 03/22 2100 CAN PO Gabapentin 100 MG TID 03/22 1400 AC 03/23 PO 0854 Insulin Aspart 0 TIDAC/HS 03/22 1700 AC SC Insulin Aspart 0 TIDAC 03/22 1200 DC SC Insulin Human Regular 0 Q6 03/21 2359 DC 03/22 SC 0620 Lisinopril 5 MG DAILY 03/23 0900 AC 03/23 PO 0854 Mirtazapine 15 MG AT BEDTIME 03/22 2100 AC 03/22 PO 2115 Risperidone 2 MG AT BEDTIME 03/22 2100 AC 03/22 PO 2114 Results Last 48 Hrs of Labs/Mics: Laboratory Tests 03/23/18 0517: Anion Gap 7, Estimated GFR > 60, Glucose 125 H, Calcium 8.5, Phosphorus 3.4, Magnesium 2.1, Total Bilirubin 0.6, AST 29, ALT 24, Albumin 2.9 L, CBC w Diff NO MAN DIFF REQ, RBC 3.75 L, MCV 89.8, MCH 30.7, MCHC 34.2, RDW 14.9 H, MPV 7.8, Gran % 49.4, Lymphocytes % 32.6, Monocytes % 13.7 H, Eosinophils % 3.2, Basophils % 1.1, Absolute Granulocytes 2.5, Absolute Lymphocytes 1.6, Absolute Monocytes 0.7 H, Absolute Eosinophils 0.2, Absolute Basophils 0.1 03/22/18 0800: Troponin I 0.05 03/22/18 0213: Troponin I 0.05 03/22/18 0213: Hemoglobin A1c Pending, Triglycerides 40, Cholesterol 144, LDL Cholesterol, Calc 56 L, HDL Cholesterol 80 H, Cholesterol/HDL Ratio 2, TSH 3.400, Free T4 0.97 03/22/18 0213: Anion Gap 11, Estimated GFR > 60, Glucose 129 H, Calcium 8.7, Phosphorus 3.0, Magnesium 2.0, Total Bilirubin 0.5, AST 26, ALT 25, Albumin 3.4 L, CBC w Diff NO MAN DIFF REQ, RBC 3.83 L, MCV 89.2, MCH 31.1 H, MCHC 34.9, RDW 14.1, MPV 8.0, Gran % 70.3, Lymphocytes % 20.9, Monocytes % 8.5, Eosinophils % 0.1, Basophils % 0.2, Absolute Granulocytes 4.7, Absolute Lymphocytes 1.4, Absolute Monocytes 0.6, Absolute Eosinophils 0, Absolute Basophils 0 03/21/182109: Urine Opiates Screen < 100, Methadone Screen < 40, Barbiturate Screen < 60, Ur Phencyclidine Scrn < 6.00, Amphetamines Screen < 100, U Benzodiazepines Scrn < 85, Urine Cocaine Screen < 50, Urine Cannabis Screen < 5.00 03/21/18 191: Anion Gap 10, Estimated GFR > 60, BUN/Creatinine Ratio 12.9, Glucose 149 H, Calcium 9.1, Total Bilirubin 0.4, AST 26, ALT 22, Alkaline Phosphatase 122, Troponin I < 0.01, Total Protein 6.7, Albumin 3.5, Globulin 3.2, Albumin/ Globulin Ratio 1.1 03/21/181853: PT 10.6, INR 0.97, APTT 26, CBC w Diff NO MAN DIFF REQ, RBC 4.02 L, MCV 90.8, MCH 31.1 H, MCHC 34.2, RDW 14.6 H, MPV 8.1, Gran % 43.4, Lymphocytes % 44.9, Monocytes % 9.6 H, Eosinophils % 1.5, Basophils % 0.6, Absolute Granulocytes 2.1, Absolute Lymphocytes 2.1, Absolute Monocytes 0.5, Absolute Eosinophils 0.1, Absolute Basophils 0 Microbiology 03/21 2110 URINE ROUT: Urine Culture - COMP Recent Imaging Studies: Telemetry tracings were personally reviewed and shows sinus rhythm Echo 1. Mild to moderate aortic sclerosis is present with no valvular stenosis or insufficiency. 2. Mitral leaflet thickening is present with anular calcification and minimal to mild mitral insufficiency with mild left atrial enlargement. 3. In the left atrium, at the base of the posterior leaflet / mitral anulus, best seen on the parasternal long axis view, there is an illdefined mobile echodensity present. This may represent acoustic artifact, however, the possibility of other lesions such as vegetation, anular associated thrombus , etc cannot be excluded by these images. Followup images to reassess this region, or a KELBY, would be useful to better assess. 4. There is no significant pericardial fluid present. 5. The left ventricular chamber size and systolic function are normal. 6. Minimal tricuspid insufficiency is present with minimal to mild pulmonic insufficiency and no evidence of pulmonary hypertension. 7. On the apical 4 chamber view thee is also an illdefined echodensity present in the right atrium which appears to be related to acoustic artifact. Followup images are also suggested to better assess this region. Noam Daly M.D. (Electronically Signed) Final Date: 22 March 2018 20:24 Assessment/Plan Assessment/Plan 1. Acute CVA status post TPA 2. Hypertension 3. Diabetes 4. History of carotid stenosis Remains hemodynamically stable. Continue antiplatelet and statin therapy. No evidence of atrial fibrillation thus far on telemetry. Echocardiogram as above; findings are most consistent with acoustic artifact but may require additional imaging; would keep n.p.o. after midnight and we can discuss the possibility of transesophageal echocardiogram. Bridger Jones MD [facility] Continue telemetry? Yes
--- NOTE | 2018-03-23 10:48 | PN- Neurology ---
Subjective Subjective: Speech flowing much better. Out of bed sitting. In good mood. Review of Systems: as above. Objective Vital Signs and I&Os Vital Signs Date Time Temp Pulse Resp B/P B/P Pulse O2 O2 Flow FiO2 Mean Ox Delivery Rate 03/23 0854 75 130/60 03/23 0800 98 Room Air 03/23 0800 99.4 77 20 130/60 98 Room Air 03/23 0400 95 Room Air Room Air 03/23 0000 94 Room Air Room Air 03/23 0000 97.8 69 28 116/52 94 Room Air Room Air 03/22 2000 97 Room Air Room Air 03/22 1600 99.4 74 20 162/76 97 Room Air 03/22 1600 96 Room Air 03/22 1200 98 Room Air Intake & Output 03/23 1600 03/23 0800 03/23 0000 03/22 1600 03/22 0800 03/22 0000 Intake Total 0 180 560 750 0 Output Total 685 1000 1300 970 850 Balance -685 -820 -740 -220 -850 Intake, IV 500 750 0 Intake, Oral 0 180 60 0 Number 0 0 0 0 Bowel Movements Output, Urine 685 1000 1300 970 850 Patient 117 lb 134 lb 188 lb 134 lb Weight Weight Bed scale Bed scale Bed scale Measurement Method Physical Exam: Alert and oriented Fluent speech and comprehension Good strength Face symmetric Current Medications: Current Medications Sig/Bertha Start time Last Medication Dose Route Stop Time Status Admin Atorvastatin Calcium 80 MG 1700 03/22 1700 AC 03/22 PO 1830 Atropine Sulfate 1 GTT 03/24 09 AC OPH Brimonidine Tartrate 1 GTT BID 03/22 2100 AC 03/23 OPH 0854 Clopidogrel Bisulfate 75 MG DAILY 03/23 0900 AC 03/23 PO 0854 Clopidogrel Bisulfate 75 MG DAILY 03/22 2100 CAN PO Gabapentin 100 MG TID 03/22 1400 AC 03/23 PO 0854 Insulin Aspart 0 TIDAC/HS 03/22 1700 AC SC Insulin Aspart 0 TIDAC 03/22 1200 DC SC Insulin Human Regular 0 Q6 03/21 2359 DC 03/22 SC 0620 Lisinopril 5 MG DAILY 03/23 0900 AC 03/23 PO 0854 Mirtazapine 15 MG AT BEDTIME 03/22 2100 AC 03/22 PO 211 Risperidone 2 MG AT BEDTIME 03/22 2100 AC 03/22 PO 2114 Results Last 24 Hours of Lab Results: Laboratory Tests 03/23 0517 Chemistry Sodium (137 - 145 mmol/L) 138 Potassium (3.5 - 5.1 mmol/L) 4.5 Chloride (98 - 107 mmol/L) 108 H Carbon Dioxide (22 - 30 mmol/L) 23 Anion Gap (5 - 16) 7 BUN (7 - 17 mg/dL) 9 Creatinine (0.5 - 1.0 mg/dL) 0.6 Estimated GFR (>60 ml/min) > 60 Glucose (65 - 99 mg/dL) 125 H Calcium (8.4 - 10.2 mg/dL) 8.5 Phosphorus (2.5 - 4.5 mg/dL) 3.4 Magnesium (1.6 - 2.3 mg/dL) 2.1 Total Bilirubin (0.2 - 1.3 mg/dL) 0.6 AST (14 - 36 U/L) 29 ALT (9 - 52 U/L) 24 Albumin (3.5 - 5.0 g/dL) 2.9 L Hematology CBC w Diff NO MAN DIFF REQ WBC (4.8 - 10.8 /CUMM) 5.0 RBC (4.20 - 5.40 /CUMM) 3.75 L Hgb (12.0 - 16.0 G/DL) 11.5 L Hct (37 - 47 %) 33.7 L MCV (81.0 - 99.0 FL) 89.8 MCH (27.0 - 31.0 PG) 30.7 MCHC (33.0 - 37.0 G/DL) 34.2 RDW (11.5 - 14.5 %) 14.9 H Plt Count (130 - 400 /CUMM) 210 MPV (7.4 - 10.4 FL) 7.8 Gran % (42.2 - 75.2 %) 49.4 Lymphocytes % (20.5 - 51.1 %) 32.6 Monocytes % (1.7 - 9.3 %) 13.7 H Eosinophils % (0 - 5 %) 3.2 Basophils % (0.0 - 2.0 %) 1.1 Absolute Granulocytes (1.4 - 6.5 /CUMM) 2.5 Absolute Lymphocytes (1.2 - 3.4 /CUMM) 1.6 Absolute Monocytes (0.10 - 0.60 /CUMM) 0.7 H Absolute Eosinophils (0.0 - 0.7 /CUMM) 0.2 Absolute Basophils (0.0 - 0.2 /CUMM) 0.1 Recent Imaging Studies: FINDINGS: There is no evidence of acute intracranial hemorrhage or territorial infarction. No abnormal mass effect or midline shift is seen. Byrd to white matter differentiation is well preserved. No extra-axial fluid collections are identified. The ventricles are normal in size. There is no abnormal attenuation within the brain parenchyma. The osseous structures and soft tissues are normal. The mastoid air cells and visualized portions of the paranasal sinuses are well aerated. IMPRESSION: No acute intracranial pathology Assessment/Plan Assessment: Doing great! Can be moved to regular room. Plan: 1. Move to regular room. 2. C/w workup. 3. PT and speech. 4. Could likely be discharged Saturday after evaluation of vascular surgery.
[2018-03-23 14:35] VITALS: BP 126/62
--- NOTE | 2018-03-23 14:59 | Cons- Vascular Surgery ---
General Information and HPI Consulting Request Date of Consult: 03/23/18 Requested By: Brenda Talavera MD Reason for Consult: Left carotid stenosis with stroke Source of Information: patient, old records Exam Limitations: no limitations History of Present Illness: 78y/o woman seen for evaluation of carotid stenosis with stroke. She has known carotid atherosclerosis, followed with surveillance imaging. She presented with expressive aphasia, with progression of neurologic deficit. She presented to ED , and was treated with systemic thrombolytic therapy for presumed acute stroke. Her symptoms have resolved. CTA neck revealed critical stenosis of left carotid artery. She has been started on statin and antiplatelet therapy. Vascular surgery consult was requested to discuss management. Currently, denies expressive aphasia or paralysis. 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 Allergies/Medications Allergies: Coded Allergies: No Known Allergies (03/21/18) Home Med List: Aspirin (Ecotrin*) 81 MG TABLET.DR 1 TAB PO DAILY HEART/BLOOD (Reported) Atenolol 25 MG TABLET 1 TAB PO DAILY BP (Reported) Atropine Sulfate 1 % DROPS BOTH EYES (Reported) Brimonidine Tartrate/Timolol (Combigan Eye Drops) 0.2 %-0.5 % DROPS 1 DRP OP BID EYE (Reported) Cyanocobalamin (Vitamin B-12) 1,000 MCG TABLET 1 TAB PO DAILY SUPPLEMENT ( Reported) Furosemide 20 MG TABLET 1 TAB PO PRN DIURETIC (Reported) Gabapentin 100 MG CAPSULE 1 CAP PO TID NERVE PAIN (Reported) Insulin Aspart (Novolog) (Unknown Strength) VIAL (Unknown Dose) SC TIDAC/HS DM (Reported) Insulin Glargine,Hum.rec.anlog (Lantus Solostar) 100 UNIT/ML (3 ML) INSULN.PEN 9 UNIT SC QPM DM (Reported) Magnesium Oxide (Magox 400) 400 MG TABLET 1 TAB PO BID SUPPLEMENT (Reported) Mirtazapine 15 MG TABLET 1 TAB PO QHS INSOMNIA (Reported) [place]-3 Fatty Acids (Fish Oil Concentrate) 1,000 MG CAPSULE 1 SGL PO DAILY SUPPLEMENT (Reported) Prednisolone Acetate (Omnipred) 1 % DROPS.SUSP 1 GTT OU SATURDAY WED SATURDAY BOTH EYES (Reported) Risperidone 2 MG TABLET 1 TAB PO QHS SCHIZOPHRENIA (Reported) Sodium Chloride (Ariane-128) 2 % DROPS 1 DRP OU TID BOTH EYES (Reported) Tylenol With Codeine (Tylenol With Codeine #3 Tablet) 300 MG-30 MG TABLET 1 TAB PO BID PAIN (Reported) Vit A/Vit C/Vit E/Zinc/Copper (Preservision Areds Softgel) 14,320-226 CAPSULE 1 SGL PO BID SUPPLEMENT (Reported) Current Medications: Current Medications Sig/Bertha Start time Last Medication Dose Route Stop Time Status Admin Atorvastatin Calcium 80 MG 1700 03/22 1700 AC 03/22 PO 1830 Atropine Sulfate 1 GTT 03/24 0900 AC OPH Brimonidine Tartrate 1 GTT BID 03/22 2100 AC 03/23 OPH 0854 Clopidogrel Bisulfate 75 MG DAILY 03/23 0900 AC 03/23 PO 0854 Clopidogrel Bisulfate 75 MG DAILY 03/22 2100 CAN PO Gabapentin 100 MG TID 03/22 1400 AC 03/23 PO 1407 Insulin Aspart 0 TIDAC/HS 03/22 1700 AC 03/23 SC 1200 Lisinopril 5 MG DAILY 03/23 0900 AC 03/23 PO 0854 Mirtazapine 15 MG AT BEDTIME 03/22 2100 AC 03/22 PO 2116 Risperidone 2 MG AT BEDTIME 03/22 2100 AC 03/22 PO 2115 Past History Medical History Blood Transfusion Hx: No Neurological: NEUROPATHY EENT: glaucoma, macular degeneration, LEGALLY BLIND - + PERIPHERAL VISION Cardiovascular: hypertension, 79% CAROTID OCCULSION Respiratory: NONE Gastrointestinal: NONE Hepatic: NONE Renal: NONE Musculoskeletal: NONE Psychiatric: major depressive disorder with psychotic features Endocrine: DIABETES (TYPE 2) Blood Disorders: NONE Cancer(s): NONE ASSURANCE ENGINEER/Reproductive: NONE Surgical History Pertinent Surgical History: hip replacement, KNEE REPLACMENT Family History Relations & Conditions If Any: BROTHER (Seizures as a child, outgrown. No other family history of epilepsy). Psychosocial History Where Do You Live? Home Who Do You Live With? self Services at Home: None Primary Language: American Smoking Status: Former Smoker (in 1950s (for >10 yr)) ETOH Use: denies use Illicit Drug Use: denies illicit drug use Power of Tinner Helper/HCP? yes (granddaughter Padma Workman) Name of POA/HCP: Padma Workman Functional Ability ADLs Independent: dressing, eating, toileting, bathing. Ambulation: cane IADLs Independent: food prep, telephone, medication admin. Needs Assist: shopping, housework, finances, transportation. Review of Systems Review of Systems: Left eye blindness, left arm pain; otherwise 12-point ROS negative Exam & Diagnostic Data Vital Signs and I&O Vital Signs Date Time Temp Pulse Resp B/P B/P Pulse O2 O2 Flow FiO2 Mean Ox Delivery Rate 03/23 1435 98.6 77 18 126/62 97 Room Air 03/23 0854 75 130/60 03/23 0800 98 Room Air 03/23 0800 99.4 77 20 130/60 98 Room Air 03/23 0400 95 Room Air Room Air 03/23 0000 94 Room Air Room Air 03/23 0000 97.8 69 28 116/52 94 Room Air Room Air 03/22 2000 97 Room Air Room Air 03/22 1600 99.4 74 20 162/76 97 Room Air 03/22 1600 96 Room Air Intake & Output 03/23 1600 03/23 0800 17 0000 03/22 1600 03/22 0800 03/22 0000 Intake Total 600 0 180 560 750 0 Output Total 087 203 8007 1300 970 850 Balance 299 -685 -820 -740 -220 -850 Intake, IV 500 750 0 Intake, Oral 600 0 180 60 0 Number 1 0 0 0 0 Bowel Movements Output, Stool 1 Output, Urine 741 536 7482 1300 970 850 Patient 53.269 kg 60.895 kg 85.389 kg 60.81 kg Weight Weight Bed scale Bed scale Bed scale Measurement Method Physical Exam General Appearance: well developed/nourished Head: atraumatic Eyes: Left: other (pupil dilated on left, blindne). Right: normal appearance, EOMI, pale conjunctivae. Ears, Nose, Throat: normal pharynx Neck: normal inspection Respiratory: normal breath sounds Cardiovascular: regular rate/rhythm Peripheral Pulses: 2+ carotid (R), 2+ carotid (L), 2+ radial (R), 2+ radial (L), 2+ femoral (R), 2+ femoral (L), 2+ dorsalis pedis (R), 2+ dorsalis pedis (L) Gastrointestinal: soft, non-tender Extremities: normal inspection Neurologic/Psych: no motor/sensory deficits, alert, oriented x 3 Skin: intact (diffuse bruising) Imaging Results: CTA neck images reviewed by me. Critical stenosis left ICA, moderate stenosis origin of left CCA with bovine arch; atherosclerosis but mild stenosis right ICA. Large widely patent vertebral arteries. Assessment/Plan Assessment/Plan She has critical stenosis of left ICA with recent left hemispheric stroke. In the absence of embolic source, her left carotid plaque likely accounts for her recent left hemispheric ischemia. She is planned for KELBY tomorrow to evaluate left atrial abnormality seen on TTE. MRI brain to evaluate for ischemic changes. Maximize statin and antiplatelet Rx. She needs urgent revascularization of left ICA to decrease risk of subsequent stroke, currently 26% over 2 years, 10% within 2 weeks. I will arrange operation, likely will not occur this admission. Please ensure patient is cleared for left carotid endarterectomy from medical/cardiac perspective. Consult Acknowledgment - Thank you for your consult request.
[2018-03-23 21:53] VITALS: BP 122/60
[2018-03-24 06:47] VITALS: BP 104/54
--- NOTE | 2018-03-24 07:42 | PN- Housestaff ---
See Addendum Subjective Follow-up For: Ischemic stroke status post TPA Tele-Events Since Last Visit: Normal sinus rhythm with heart rate ranging up to 95 Subjective: Patient seen and examined. Resting comfortably. Does not offer any complaints. She is comprehensible and has no trouble following commands and is answering questions appropriately. She was transferred out out of ICU after completing TPA Review of Systems Constitutional: Reports: see HPI. Objective Last 24 Hrs of Vital Signs/I&O Vital Signs Date Time Temp Pulse Resp B/P B/P Pulse O2 O2 Flow FiO2 Mean Ox Delivery Rate 03/24 0804 88 108/58 03/24 0647 99.2 90 18 104/54 97 Room Air 03/23 2153 98.5 80 18 122/60 98 Room Air 03/23 1435 98.6 77 18 126/62 97 Room Air 03/23 0854 75 130/60 Intake & Output 03/24 1600 03/24 0800 03/24 0000 Intake Total 0 400 Output Total 350 500 Balance -350 -100 Intake, Oral 0 400 Number 1 Bowel Movements Output, Urine 350 500 Patient 125 lb Weight Weight Bed scale Measurement Method Physical Exam General Appearance: Alert, Oriented X3, Cooperative HEENT: Atraumatic Cardiovascular: Normal S1, Normal S2 Lungs: Clear to Auscultation, Normal Air Movement Abdomen: Normal Bowel Sounds, Soft, No Tenderness Neurological: Normal Speech Extremities: No Edema Current Medications: Current Medications Sig/Bertha Start time Last Medication Dose Route Stop Time Status Admin Atorvastatin Calcium 80 MG 1700 03/22 1700 AC 03/23 PO 1634 Atropine Sulfate 1 GTT 03/24 0900 DC OPH Atropine Sulfate 1 GTT 03/24 0900 AC 03/24 OPH 0813 Brimonidine Tartrate 1 GTT BID 03/22 2100 AC 03/24 OPH 0804 Clopidogrel Bisulfate 75 MG DAILY 03/23 09 AC 03/24 PO 0804 Gabapentin 100 MG TID 03/22 1400 AC 03/24 PO 0804 Insulin Aspart 0 TIDAC/HS 03/22 1700 AC 03/23 SC 1633 Lisinopril 5 MG DAILY 03/23 0900 AC 03/24 PO 0804 Mirtazapine 15 MG AT BEDTIME 03/22 2100 AC 03/23 PO 2110 Risperidone 2 MG AT BEDTIME 03/22 2100 AC 03/23 PO 211 Last 24 Hrs of Lab/Cipriano Results Last 24 Hrs of Labs/Mics: Laboratory Tests 03/24/18613: CBC w Diff NO MAN DIFF REQ, RBC 3.63 L, MCV 90.3, MCH 31.0, MCHC 34.3, RDW 14.6 H, MPV 8.2, Gran % 62.7, Lymphocytes % 22.4, Monocytes % 12.8 H, Eosinophils % 1.9, Basophils % 0.2, Absolute Granulocytes 4.2, Absolute Lymphocytes 1.5, Absolute Monocytes 0.9 H, Absolute Eosinophils 0.1, Absolute Basophils 0 Assessment/Plan Assessment: 78-year-old female who was admitted to ICU for evaluation of acute left frontal infaction s/p TPA. CT scan was negative for any acute intracranial pathology. Patient's condition improved subsequently along with speech. She was transferred to telemetry room for further workup #Acute ischemic CVA She is clinically much better than at admission and is has regained her comprehension, speech and is moving purposefully. tPA is over now and her repeat CT head is still not showing any zone of ischemia. MRI pending. -Continue serial neuro checks -MRI pending -Neurology recommendations appreciated -PT/OT -Continue Plavix and statin #Ill-defined mass in left atrium Patient underwent TTE which showed ill-defined mass in left atrium which could represent artifact or vegetation. We need to rule out embolic causes of her stroke -Plan for KELBY today #Critical stenosis of left ICA In the absence of embolic source, her left carotid plaque likely accounts for her recent left hemispheric ischemia -She will need urgent revascularization of left ICA to decrease the risk of subsequent stroke (26% over 2 years, 10% within 2 weeks) -Patient will undergo left carotid endarterectomy as an outpatient vascular surgery on board #Hypertensive urgency with history of hypertension Resolved, continue lisinopril NPO for now/DNR DNI/DVT prophylaxis with Alps Problem List: 1. CVA (cerebral vascular accident) Pain Ratin Pain Location: na Pain Goal: Pain 4 or less Pain Plan: prn Tomorrow's Labs & Rationales: none
[2018-03-24 07:56] LABS: ABSOLUTE BASOPHIL COUNT 0 /CUMM (0.0-0.2); ABSOLUTE EOSINOPHIL COUNT 0.1 /CUMM (0.0-0.7); ABSOLUTE GRANULOCYTE CT 4.2 /CUMM (1.4-6.5); ABSOLUTE LYMPH COUNT 1.5 /CUMM (1.2-3.4); ABSOLUTE MONOCYTE COUNT 0.9 /CUMM (0.10-0.60); BASOPHIL % 0.2 % (0.0-2.0); EOSINOPHIL % 1.9 % (0-5); GRANULOCYTE % 62.7 % (42.2-75.2); HEMATOCRIT 32.7 % (37-47); MEAN CORPUSCULAR HGB CONC 34.3 G/DL (33.0-37.0); MEAN CORPUSCULAR VOLUME 90.3 FL (81.0-99.0); MEAN PLATELET VOLUME 8.2 FL (7.4-10.4); PLATELET COUNT 213 /CUMM (130-400); RBC DISTRIBUTION WIDTH 14.6 % (11.5-14.5); RED BLOOD CELL CT 3.63 /CUMM (4.20-5.40); WHITE BLOOD CELL COUNT 6.7 /CUMM (4.8-10.8)
--- NOTE | 2018-03-24 08:17 | Discharge Summary ---
Visit Information Visit Dates Admission Date: 03/21/18 Discharge Date: 03/25/2018 Hospital Course Course Attending Physician: Brenda Talavera MD Primary Care Physician: Sigifredo Connors MD. Hospital Course: 78 yo F with pmh of HTN, Carotid artery disease managed conservatively so far ( Follows Dr Maki), IDDM with peripheral neuropathy, macular degeneration (legally blind), CHFpEF (65% per family), uterine cancer status post hysterectomy, chronic back pain, major depressive disorder with psychotic symptoms, last hospital admission in Oct 2016 for AMS, was noted by her granddaughter over phone to have some confusion and "word salad", after which she had called in EMS , and in the ED she was diagnosed with stroke and after ruling out intracranial bleed with a plain CT of head, she was given tPA in the ED and admitted to the ICU. Her stay in the ICU has been uneventful and she has been progressing clinically otherwise. Her repeat CT head after 24 hrs of tPA was negative for any bleeding. MRI of head has been ordered to further study the brain structure. Neurology agreed to changing her aspirin to Plavix and increasing her to high- intensity statin. She has carotid artery disease, and her recent CT angiogram shows significant carotid artery stenosis, for which her last surgery was contacted and plans to go for surgery soon after her discharge. Transthoracic echocardiogram showed ill-defined mass in the left atrium, which needs to be further clarified, as the differentials could be artifact or vegetation or thrombus. On 03/25, the patient had a KELBY. The possible left atrial and right atrial masses on transthoracic echo were not evident on KELBY. No vegetations or thrombus were seen. Agitated saline bubble study reveals no evidence of patent foramen ovale. Left atrial appendage is normal. On day of discharge patient was complaining of burning with urination, along with increased urgency and increased frequency than baseline. A UA was obtained which was positive for leukoesterase and 25-50 WBCs. Urine culture has also been sent. We are going to treat her for cystitis for 3 days. She received IV ceftriaxone once before discharge and is going to be discharged on oral Augmentin for 2 more days. The patient did not require any central line, any forms of invasive ventilation during her stay in the Hospital. Patient worked with physical therapy. They recommended the patint would benefit from acute rehabilitation. Imaging studies from the patient's hospitalization of been included on this report. Allergies: Coded Allergies: No Known Allergies (03/21/18) Pertinent Lab Results: SERVICE DATE: 03/21/18 EXAM TYPE: CAT - CT HEAD WO IV CONTRAST This result was discussed with Dhruv Meyer MD (TBS) by telephone at 03/21/2018 6:47 PM and it was ascertained that the content and urgency of the report was understood at the time of direct communication. Addendum Signed by: Segun Mota MD 03/21/18 5728 EXAMINATION: CT HEAD WITHOUT CONTRAST CLINICAL INFORMATION: Cerebrovascular accident. Altered mental status. COMPARISON: CT head 02/13/2018. TECHNIQUE: Contiguous axial imaging was performed from the skull base to vertex without intravenous administration of contrast. DLP: 620 mGy-cm FINDINGS: Moderate diffuse commensurate prominence of ventricles and sulci is present and is grossly unchanged compared with 02/13/2018. Mild periventricular white matter patchy hypodensities are present. No intracranial hemorrhage, tumors or infarcts are noted. Senescent calcifications are present in the globus pallidus right. Bilateral ocular lens extractions are visualized. Within the visualized paranasal sinuses, mastoid air cells and middle ear cavities, no significant opacification is noted. IMPRESSION: 1. No acute abnormalities identified. 2. Mild white matter chronic small vessel ischemic changes. DICTATED BY: Segun Mota MD SERVICE DATE: 03/21/18 EXAM TYPE: CAT - CT HEAD ANGIOGRAM; CT NECK ANGIOGRAM EXAMINATION: CT ANGIOGRAM HEAD CT ANGIOGRAM NECK CLINICAL INFORMATION: 78-year-old female with altered mental status. COMPARISON: Noncontrast head CT from 03/21/2018. TECHNIQUE: Test bolus sequences followed by intravenous administration 95 mL of Optiray 320 intravenous contrast. Helical imaging was performed in the axial plane from the mediastinum to the skull vertex. The data was processed at the cytopathology technologist's workstation for generation of two-dimensional MIP sequences. No three-dimensional images were generated. Note that any estimates of vessel stenosis are based on criteria similar to NASCET criteria. DLP: 1005 mGy-cm FINDINGS: HEAD: No acute findings within the head compared to the noncontrast images acquired on 03/21/2018 at 6:33 PM. Again noted is the cerebral atrophy with commensurate prominence of ventricles and sulci. No intracranial mass, hemorrhage or extra-axial fluid collection. SOFT TISSUES AND LUNG APICES: Lung apices are unremarkable. No soft tissue mass, fluid collection or lymphadenopathy within the neck. Thyroid gland is atrophied. NECK CTA: There is atherosclerosis of the aortic arch. There is a classic three-vessel configuration of the aortic arch. At this chronic plaque produces mild stenosis of proximal left subclavian artery and proximal right subclavian artery. The vertebral arteries are widely patent. Mild atherosclerotic plaque of each common carotid artery. Calcified atherosclerotic plaque of the left carotid bulb and proximal ICA produces approximately 75% stenosis of the proximal ICA. The atherosclerotic plaque of the right carotid bulb and proximal ICA produces < 50% stenosis of the proximal right ICA. No acute findings. No evidence of carotid artery dissection. CRANIAL CTA: The petrous, cavernous and supraclinoid segments of the ICA are patent. There is atherosclerosis of the cavernous carotid arteries without significant luminal narrowing. The basilar artery is widely patent. There is normal opacification of the major intracranial vessels. No acute proximal large vessel occlusion, focal flow-limiting stenosis, or saccular intracranial aneurysm is identified. No abnormal parenchymal enhancement or regional oligemia is visualized. IMPRESSION: 1. No CT imaging evidence of acute intracranial infarction, mass or hemorrhage. 2. Atherosclerotic disease of carotid arteries. The atherosclerotic plaque of the left carotid bulb and proximal ICA produces approximately 75% stenosis of the proximal left ICA. DICTATED BY: Corina HEBERTHugo SERVICE DATE: 03/22/18- EXAM TYPE: US - GI-RGVTSEL-GLTMPTINR DOPPLER EXAMINATION: DUPLEX BILATERAL CAROTID ULTRASOUND CLINICAL INFORMATION: Slurred speech and weakness. COMPARISON: 07/14/2010. TECHNIQUE: \\H\\B\\N\\ilateral carotid US was performed using real-time ultrasound and Doppler techniques (integrating B-mode 2D vascular images, Doppler spectral analysis and color flow Doppler imaging). These techniques were utilized to interrogate the extracranial carotid and vertebral arteries bilaterally. The degree of stenosis is based off criteria similar to NASCET. FINDINGS: Right side: 1. A small amount of hyperechoic plaque is seen in the ECA/ICA region. 2. The common carotid artery velocity is 85 cm/s. 3. The proximal internal carotid artery velocities are 88 cm/s systolic and 14 cm/s diastolic. 4. The external carotid artery velocity is 116 cm/s. Left side: 1. A small amount of hyperechoic plaque is seen in the ECA/ICA region. 2. The common carotid artery velocity is 76 cm/s. 3. The proximal internal carotid artery velocities are 82 cm/s systolic and 8 cm/s diastolic. 4. The external carotid artery velocity is 114 cm/s. ADDITIONAL FINDINGS: 1. The vertebral arteries show antegrade flow. IMPRESSION: 1. RIGHT: Minimal, nonhemodynamically significant stenosis of the proximal right internal carotid artery corresponding to a 0-49% stenosis by velocity criteria. 2. LEFT: Minimal, nonhemodynamically significant stenosis of the proximal left internal carotid artery corresponding to a 0-49% stenosis by velocity criteria. 3. Antegrade flow seen via the bilateral vertebral arteries. DICTATED BY: Evan Hunt MD SERVICE DATE: 03/22/18- EXAM TYPE: RAD - XRY-PORTABLE CHEST XRAY EXAMINATION: XR PORTABLE CHEST CLINICAL INFORMATION: Fever of unknown origin; question pneumonia. COMPARISON: Prior chest radiographs, most recently 11/02/2016. TECHNIQUE: Portable frontal view of the chest was obtained. FINDINGS: The heart, great vessels, pulmonary vasculature and mediastinum are stable. There is atherosclerotic change of the aortic knob. The lungs show no infiltrate, effusion or pneumothorax. There is no acute osseous abnormality. There is generalized bony demineralization. IMPRESSION: Unremarkable examination. DICTATED BY: Evan Hunt MD SERVICE DATE: 03/22/18- EXAM TYPE: CAT - CT HEAD WO IV CONTRAST EXAMINATION: CT HEAD WITHOUT CONTRAST CLINICAL INFORMATION: Rule out hemorrhage or acute process CVA. COMPARISON: None TECHNIQUE: Contiguous axial imaging was performed from the skull base to vertex without intravenous administration of contrast. DLP: 621 mGy-cm FINDINGS: There is no evidence of acute intracranial hemorrhage or territorial infarction. No abnormal mass effect or midline shift is seen. Byrd to white matter differentiation is well preserved. No extra-axial fluid collections are identified. The ventricles are normal in size. There is no abnormal attenuation within the brain parenchyma. The osseous structures and soft tissues are normal. The mastoid air cells and visualized portions of the paranasal sinuses are well aerated. IMPRESSION: No acute intracranial pathology. DICTATED BY: Dallas HEBERT,[facility] SERVICE DATE: 03/22/18-599 EXAM TYPE: CARD - ECHOCARDIOGRAM March Age: 78 : 1940 Gender: F Exam Date: 03/22/2018 09:25 Exam Location: [facility] Ht (in): 60 Wt (lb): 132 BSA: 1.61 BP: 170 / 74 Ordering Physician: Ryan Bridges MD Referring Physician: Ryan Bridges MD Technologist: Alyse Jasso [facility] Room Number: 104 Indications: Rhythm: Sinus Technical Quality: Fair FINDINGS Left Ventricle Normal global left ventricular size, wall thickness, systolic function with no obvious regional wall motion abnormalities. Right Ventricle Normal right ventricular size and function. Right Atrium Normal right atrial size. Left Atrium Left atrial dilatation. Mitral Valve Mitral valve thickened. Mitral annular calcification. Trace to mild mitral regurgitation. Aortic Valve Trileaflet aortic valve. Diffuse thickening (sclerosis) of the aortic valve cusps without reduced excursion. No aortic stenosis. No aortic regurgitation. Tricuspid Valve Structurally normal tricuspid valve. Trace tricuspid regurgitation. Pulmonic Valve Structurally normal pulmonic valve. Trace to mild pulmonic regurgitation. Pericardium No pericardial effusion. Great Vessels Normal size aortic root and proximal ascending aorta. CONCLUSIONS 1. Mild to moderate aortic sclerosis is present with no valvular stenosis or insufficiency. 2. Mitral leaflet thickening is present with anular calcification and minimal to mild mitral insufficiency with mild left atrial enlargement. 3. In the left atrium, at the base of the posterior leaflet / mitral anulus, best seen on the parasternal long axis view, there is an illdefined mobile echodensity present. This may represent acoustic artifact, however, the possibility of other lesions such as vegetation, anular associated thrombus , etc cannot be excluded by these images. Followup images to reassess this region, or a KELBY, would be useful to better assess. 4. There is no significant pericardial fluid present. 5. The left ventricular chamber size and systolic function are normal. 6. Minimal tricuspid insufficiency is present with minimal to mild pulmonic insufficiency and no evidence of pulmonary hypertension. 7. On the apical 4 chamber view thee is also an illdefined echodensity present in the right atrium which appears to be related to acoustic artifact. Followup images are also suggested to better assess this region. Noam Daly M.D. (Electronically Signed) Final Date: 22 March 2018 20:24 MEASUREMENTS (Male / Female) Normal Values 2D ECHO LV Diastolic Diameter PLAX 3.2 cm 4.2 - 5.9 / 3.9 - 5.3 cm LV Systolic Diameter PLAX 2.1 cm 2.1 - 4.0 cm LV Fractional Shortening PLAX 34.4 % 25 - 46 % LV Ejection Fraction 2D Teich 64.8 % IVS Diastolic Thickness 1.2 cm LVPW Diastolic Thickness 1.0 cm LV Relative Wall Thickness 0.7 LVOT Diameter 1.9 cm Aortic Root Diameter 2.9 cm LA Systolic Diameter LX 2.4 cm 3.0 - 4.0 / 2.7 - 3.8 cm LA Volume 39.0 cm 18 - 58 / 22 - 52 cm DOPPLER AV Peak Velocity 159.0 cm/s AV Peak Gradient 10.1 mmHg LVOT Peak Velocity 124.0 cm/s LVOT Peak Gradient 6.2 mmHg AV Area Cont Eq pk 2.2 cm Mitral E Point Velocity 103.0 cm/s Mitral A Point Velocity 129.0 cm/s Mitral E to A Ratio 0.8 MV Deceleration Time 268.0 ms TV Peak Velocity 221.0 cm/s PV Peak Velocity 121.0 cm/s PV Peak Gradient 5.9 mmHg LV E' Lateral Velocity 8.6 cm/s Mitral E to LV E' Lateral Ratio 12.0 LV E' Septal Velocity 6.7 cm/s Mitral E to LV E' Septal Ratio 15.3 DICTATED BY: Justo Daly MD SERVICE DATE: 03/24/18- EXAM TYPE: MRI - MRI-HEAD W/O CINTIA EXAMINATION: MR BRAIN WITHOUT CONTRAST CLINICAL INFORMATION: CVA status post TPA. COMPARISON: CT scan of the head 03/22/2018. TECHNIQUE: MRI of the brain without contrast was obtained using routine sequences. FINDINGS: No diffusion abnormalities are identified to suggest an acute or subacute infarct. No mass effect or midline shift is seen. There is mild commensurate prominence of the ventricles and sulci consistent with diffuse volume loss. There are scattered areas of T2 and FLAIR hyperintensity in the periventricular and subcortical white matter, as well as within the helene which are most consistent with chronic microvascular ischemic changes. No extra-axial fluid collections are seen. The brainstem and cerebellum are normal. No pathologic magnetic susceptibility artifact is identified on the gradient refocused acquisition. The craniovertebral junction, marrow signal, and midline structures are normal. There have been bilateral lens extractions. The major intracranial flow-voids at the level of the cheesh-na of Blanc are preserved. The dural venous sinus flow-voids are maintained. There is trace fluid at the left mastoid tip. There is mild mucoperiosteal thickening in the small left sphenoid sinus. IMPRESSION: 1. There are no acute bleeds or infarcts. No masses are demonstrated. 2. There is mild diffuse volume loss and there are sequelae of chronic microvascular ischemic disease. DICTATED BY: Raimundo Mcbride MD Disposition Summary Disposition Principal Diagnosis: Ischemic stroke Additional Diagnosis: HTN, Carotid artery disease managed conservatively so far (Follows Dr Maki), IDDM with peripheral neuropathy, macular degeneration (legally blind), CHFpEF (65% per family), uterine cancer status post hysterectomy, chronic back pain, major depressive disorder with psychotic symptoms Discharge Disposition: SNF Discharge Instructions General Discharge Information Code Status: Do Not Resucitate/Intubat Patient's Diet: Diabetic diet Patient's Activity: Please follow up with your primary care physician within 7 days. Please follow-up with a card services specialist within a week. Please follow-up with the neurological service within a week. We've provided you with a referral. Follow-Up Instructions/Appts: Please follow-up with your vascular surgeon, neurologist, and your PCP after discharge. According to vascular surgeon, a vascular procedure for carotid artery needs to be planned soon after discharge. Please return to emergency Medications at Discharge Discharge Medications: Stop taking the following medications: Aspirin (Ecotrin*) 81 MG TABLET.DR ORAL DAILY Continue taking these medications: Vit A/Vit C/Vit E/Zinc/Copper (Preservision Areds Softgel) 14,320-226 CAPSULE 1 SGL ORAL TWICE DAILY Comments: NOT GIVEN Cyanocobalamin (Vitamin B-12) 1,000 MCG TABLET 1 Tablet ORAL DAILY Comments: NOT GIVEN Magnesium Oxide (Magox 400) 400 MG TABLET 1 Tablet ORAL TWICE DAILY Comments: NOT GIVEN Flora-3 Fatty Acids (Fish Oil Concentrate) 1,000 MG CAPSULE 1 SGL ORAL DAILY Comments: NOT GIVEN Prednisolone Acetate (Omnipred) 1 % DROPS.SUSP 1 Drop Both Eyes SATURDAY, SATURDAY AND SATURDAY Comments: NOT GIVEN Atropine Sulfate (Atropine Sulfate) 1 % DROPS Both Eyes SATURDAY, SATURDAY AND SATURDAY Comments: Last Taken: 03/24/18 Time: 8:00 AM Atenolol (Atenolol) 25 MG TABLET 1 Tablet ORAL DAILY Comments: NOT GIVEN Furosemide (Furosemide) 20 MG TABLET 1 Tablet ORAL as needed for DIURETIC Comments: NOT GIVEN Sodium Chloride (Ariane-128) 2 % DROPS 1 DRP Both Eyes THREE TIMES DAILY Comments: NOT GIVEN Brimonidine Tartrate/Timolol (Combigan Eye Drops) 0.2 %-0.5 % DROPS 1 DRP OPHTHALMIC TWICE DAILY Comments: Last Taken: 03/25/18 Time: 9:00 AM Gabapentin (Gabapentin) 100 MG CAPSULE 1 Capsule ORAL THREE TIMES DAILY Comments: Last Taken: 03/25/18 Time: 2:30 PM Tylenol With Codeine (Tylenol With Codeine #3 Tablet) 300 MG-30 MG TABLET 1 Tablet ORAL TWICE DAILY Comments: NOT GIVEN Risperidone (Risperidone) 2 MG TABLET 1 Tablet ORAL TAKE AT BEDTIME Qty = 30 Comments: Last Taken: 03/24/18 Time: 9:45 PM Mirtazapine (Mirtazapine) 15 MG TABLET 1 Tablet ORAL TAKE AT BEDTIME Qty = 30 Comments: Last Taken: 03/24/18 Time: 9:45 PM Insulin Glargine,Hum.rec.anlog (Lantus Solostar) 100 UNIT/ML (3 ML) INSULN.PEN 9 Unit Inject into fatty tissue Every night Qty = 9 Comments: NOT GIVEN Insulin Aspart (Novolog) 100 UNIT/ML VIAL Inject into fatty tissue 3 TIMES DAILY BEFORE MEALS Instructions: BLOOS SUGAR SS <80 NONE, DRINK JUCIE 80-150 NONE 151-200 1 UNIT 201-250 2 UNITS 251-300 3 UNITS 301-350 4 UNITS 351-400 6 UNITS >400 8 UNITS CALL MD Comments: Last Taken: 03/25/18 Time: 8:00 AM Start taking the following new medications: Clopidogrel Bisulfate (Plavix) 75 MG TABLET 1 Tablet ORAL DAILY Qty = 30 No Refills Comments: Last Taken: 03/25/18 Time: 9:00 AM Atorvastatin Calcium (Atorvastatin Calcium) 80 MG TABLET 1 Tablet ORAL 5 PM Qty = 30 No Refills Comments: Last Taken: 03/24/18 Time: 5:00 PM Amoxicillin/Potassium Clav (Augmentin 875-125 Tablet) 875 MG-125 MG TABLET 1 Tablet ORAL TWICE DAILY Qty = 4 No Refills Comments: NOT GIVEN Copies To: Soo HEBERT,Russell; Dory HEBERT,Sigifredo Gonzalez; Karen HEBERT,Amos; Shanthi HEBERT,Ubaldo Mondragon
--- NOTE | 2018-03-24 12:08 | PN- Cardiology ---
Subjective Subjective: Comfortable. No chest pain. No SOB. No palp. No nausea or vomiting. Objective Vital Signs and I&Os Vital Signs Date Time Temp Pulse Resp B/P B/P Pulse O2 O2 Flow FiO2 Mean Ox Delivery Rate 03/24 0804 88 108/58 03/24 0647 99.2 90 18 104/54 97 Room Air 03/23 2153 98.5 80 18 122/60 98 Room Air 03/23 1435 98.6 77 18 126/62 97 Room Air Intake & Output 03/24 1600 03/24 0800 03/24 0000 03/23 1600 03/23 0800 03/23 0000 Intake Total 0 400 600 0 180 Output Total 350 500 358 707 8337 Balance -350 -100 299 -685 -820 Intake, Oral 0 400 600 0 180 Number 1 1 0 0 Bowel Movements Output, Stool 1 Output, Urine 350 500 [phone] Patient 125 lb 117 lb Weight Weight Bed scale Bed scale Measurement Method Physical Exam: General: no apparent distress. Eyes: No obvious scleral icterus. HEENT: No jugular venous distention or abnormal jugular venous pulsations. Cardiovascular: Normal intensity S1/S2. Regular. 1/6 systolic murmur. Respiratory: Lungs clear to auscultation bilaterally. Abdomen: Soft, nontender with no guarding or rebound tenderness. Musculoskeletal: No clubbing or cyanosis noted Skin: warm Neurologic: Alert Current Medications: Current Medications Sig/Bertha Start time Last Medication Dose Route Stop Time Status Admin Atorvastatin Calcium 80 MG 1700 03/22 1700 AC 03/23 PO 1634 Atropine Sulfate 1 GTT 03/24 0900 DC OPH Atropine Sulfate 1 GTT 03/24 0900 AC 03/24 OPH 0813 Brimonidine Tartrate 1 GTT BID 03/22 2100 AC 03/24 OPH 0804 Clopidogrel Bisulfate 75 MG DAILY 03/23 09 AC 03/24 PO 0804 Gabapentin 100 MG TID 03/22 1400 AC 03/24 PO 0804 Insulin Aspart 0 TIDAC/HS 03/22 1700 AC 03/23 SC 1633 Lidocaine 0 .STK-MED ONE 03/24 1101 DC TOP Lisinopril 5 MG DAILY 03/23 09 AC 03/24 PO 0804 Lorazepam 0.25 MG ONCE ONE 03/24 0945 DC 03/24 PO 03/24 0946 1022 Mirtazapine 15 MG AT BEDTIME 03/22 2100 AC 03/23 PO 2109 Risperidone 2 MG AT BEDTIME 03/22 2100 AC 03/23 PO 2109 Results Last 48 Hrs of Labs/Mics: Laboratory Tests 03/24/1814: CBC w Diff NO MAN DIFF REQ, RBC 3.63 L, MCV 90.3, MCH 31.0, MCHC 34.3, RDW 14.6 H, MPV 8.2, Gran % 62.7, Lymphocytes % 22.4, Monocytes % 12.8 H, Eosinophils % 1.9, Basophils % 0.2, Absolute Granulocytes 4.2, Absolute Lymphocytes 1.5, Absolute Monocytes 0.9 H, Absolute Eosinophils 0.1, Absolute Basophils 0 03/23/18516: Anion Gap 7, Estimated GFR > 60, Glucose 125 H, Calcium 8.5, Phosphorus 3.4, Magnesium 2.1, Total Bilirubin 0.6, AST 29, ALT 24, Albumin 2.9 L, CBC w Diff NO MAN DIFF REQ, RBC 3.75 L, MCV 89.8, MCH 30.7, MCHC 34.2, RDW 14.9 H, MPV 7.8, Gran % 49.4, Lymphocytes % 32.6, Monocytes % 13.7 H, Eosinophils % 3.2, Basophils % 1.1, Absolute Granulocytes 2.5, Absolute Lymphocytes 1.6, Absolute Monocytes 0.7 H, Absolute Eosinophils 0.2, Absolute Basophils 0.1 Recent Imaging Studies: KELBY: The possible left atrial and right atrial masses on transthoracic echo are not evident on KELBY. No vegetations or thrombus are seen. Agitated saline bubble study reveals no evidence of patent foramen ovale. Left atrial appendage is normal. Assessment/Plan Assessment/Plan 1. Acute CVA status post TPA 2. Hypertension 3. Diabetes 4. Critical stenosis of the left ICA 5. No evidence of vegetation or thrombus on KELBY. Plan: * Continue antiplatelet therapy and statin therapy * Carotid endarterectomy planned with vascular surgery * Continue other cardiac medications Continue telemetry? Yes
[2018-03-24 14:00] VITALS: BP 140/70
--- NOTE | 2018-03-24 15:16 | MRI REPORT ---
EXAMINATION: MR BRAIN WITHOUT CONTRAST CLINICAL INFORMATION: CVA status post TPA. COMPARISON: CT scan of the head 03/22/2018. TECHNIQUE: MRI of the brain without contrast was obtained using routine sequences. FINDINGS: No diffusion abnormalities are identified to suggest an acute or subacute infarct. No mass effect or midline shift is seen. There is mild commensurate prominence of the ventricles and sulci consistent with diffuse volume loss. There are scattered areas of T2 and FLAIR hyperintensity in the periventricular and subcortical white matter, as well as within the helene which are most consistent with chronic microvascular ischemic changes. No extra-axial fluid collections are seen. The brainstem and cerebellum are normal. No pathologic magnetic susceptibility artifact is identified on the gradient refocused acquisition. The craniovertebral junction, marrow signal, and midline structures are normal. There have been bilateral lens extractions. The major intracranial flow-voids at the level of the huslia of Blanc are preserved. The dural venous sinus flow-voids are maintained. There is trace fluid at the left mastoid tip. There is mild mucoperiosteal thickening in the small left sphenoid sinus. IMPRESSION: 1. There are no acute bleeds or infarcts. No masses are demonstrated. 2. There is mild diffuse volume loss and there are sequelae of chronic microvascular ischemic disease.
[2018-03-24 22:32] VITALS: BP 132/88
[2018-03-25 07:10] VITALS: BP 130/68
--- NOTE | 2018-03-25 07:28 | PN- Housestaff ---
See Addendum Subjective Follow-up For: Stroke status post TPA Tele-Events Since Last Visit: Normal sinus rhythm Subjective: Seen and examined. Sitting comfortably having breakfast. Had a long one per night. Offers no complaints Review of Systems Constitutional: Reports: see HPI. Objective Last 24 Hrs of Vital Signs/I&O Vital Signs Date Time Temp Pulse Resp B/P B/P Pulse O2 O2 Flow FiO2 Mean Ox Delivery Rate 03/25 0710 97.8 84 20 130/68 98 Room Air 03/24 2251 99.6 03/24 2232 100.2 90 24 132/88 94 03/24 2147 100.2 03/24 1400 98.3 80 20 140/70 98 Intake & Output 03/25 1600 03/25 0800 03/25 0000 Intake Total 300 120 Output Total Balance 300 120 Intake, Oral 300 120 Number 1 Bowel Movements Patient 128 lb Weight Physical Exam General Appearance: Alert, Oriented X3, Cooperative Cardiovascular: Normal S1, Normal S2 Lungs: Normal Air Movement Abdomen: Normal Bowel Sounds, Soft, No Tenderness Neurological: Normal Speech Extremities: No Edema Current Medications: Current Medications Sig/Bertha Start time Last Medication Dose Route Stop Time Status Admin Acetaminophen 650 MG ONCE ONE 03/24 1800 DC 03/24 PO 03/24 1801 2147 Atorvastatin Calcium 80 MG 1700 03/22 1700 AC 03/24 PO 1706 Atropine Sulfate 1 GTT 03/24 0900 DC OPH Atropine Sulfate 1 GTT 03/24 0900 AC 03/24 OPH 0813 Benzocaine/Menthol 1 HARRIS Q2P PRN 03/24 1500 AC PO Brimonidine Tartrate 1 GTT BID 03/22 2100 AC 03/24 OPH 2148 Clopidogrel Bisulfate 75 MG DAILY 03/23 0900 AC 03/24 PO 0804 Gabapentin 100 MG TID 03/22 1400 AC 03/24 PO 2146 Insulin Aspart 0 TIDAC/HS 03/22 1700 AC 03/25 SC 0750 Lidocaine 0 .STK-MED ONE 03/24 1101 DC TOP Lisinopril 5 MG DAILY 03/23 0900 AC 03/24 PO 0804 Lorazepam 0.25 MG ONCE ONE 03/24 0945 DC 03/24 PO 03/24 0946 1022 Mirtazapine 15 MG AT BEDTIME 03/22 2100 AC 03/24 PO 2146 Risperidone 2 MG AT BEDTIME 03/22 2100 AC 03/24 PO 2146 Last 24 Hrs of Lab/Cipriano Results Last 24 Hrs of Labs/Mics: Laboratory Tests 03/25/18 0642: CBC w Diff Pending, WBC Pending, RBC Pending, Hgb Pending, Hct Pending, MCV Pending, MCH Pending, MCHC Pending, RDW Pending, Plt Count Pending, MPV Pending Assessment/Plan Assessment: 78-year-old female who was admitted to ICU for evaluation of acute left frontal infaction s/p TPA. CT scan was negative for any acute intracranial pathology. Patient's condition improved subsequently along with speech. She was transferred to telemetry room for further workup #Acute ischemic CVA She is clinically much better than at admission and is has regained her comprehension, speech and is moving purposefully. tPA is over now and her repeat CT head is still not showing any zone of ischemia. MRI pending. -Continue serial neuro checks -MRI results there are no acute bleeds or infarcts. No masses are demonstrated. There is mild diffuse volume loss and there are sequelae of chronic microvascular ischemic disease. -Neurology recommendations appreciated -PT/OT -Continue Plavix and statin -Anticipated discharge today to acute rehab facility #Ill-defined mass in left atrium Patient underwent TTE which showed ill-defined mass in left atrium which could represent artifact or vegetation. We need to rule out embolic causes of her stroke -KELBY was negative for vegetations or thrombus #Critical stenosis of left ICA In the absence of embolic source, her left carotid plaque likely accounts for her recent left hemispheric ischemia -She will need urgent revascularization of left ICA to decrease the risk of subsequent stroke (26% over 2 years, 10% within 2 weeks) -Patient will undergo left carotid endarterectomy as an outpatient vascular surgery on board -RCRI Class 4 Risk with 11% risk of major cardiac event. MET score 1 #Hypertensive urgency with history of hypertension Resolved, continue lisinopril NPO for now/DNR DNI/DVT prophylaxis with Alps Problem List: 1. Carotid arterial disease 2. Neurologic deficit due to acute ischemic cerebrovascular accident (CVA) 3. CVA (cerebral vascular accident) Pain Ratin Pain Location: na Pain Goal: Pain 4 or less Pain Plan: prn Tomorrow's Labs & Rationales: bep
[2018-03-25 07:51] LABS: ABSOLUTE BASOPHIL COUNT 0 /CUMM (0.0-0.2); ABSOLUTE EOSINOPHIL COUNT 0.1 /CUMM (0.0-0.7); ABSOLUTE GRANULOCYTE CT 4.2 /CUMM (1.4-6.5); ABSOLUTE LYMPH COUNT 1.9 /CUMM (1.2-3.4); ABSOLUTE MONOCYTE COUNT 0.8 /CUMM (0.10-0.60); BASOPHIL % 0.3 % (0.0-2.0); EOSINOPHIL % 1.9 % (0-5); GRANULOCYTE % 59.4 % (42.2-75.2); HEMATOCRIT 32.8 % (37-47); MEAN CORPUSCULAR HGB 31.1 PG (27.0-31.0); MEAN CORPUSCULAR HGB CONC 34.2 G/DL (33.0-37.0); MEAN CORPUSCULAR VOLUME 90.9 FL (81.0-99.0); MEAN PLATELET VOLUME 8.2 FL (7.4-10.4); PLATELET COUNT 220 /CUMM (130-400); RBC DISTRIBUTION WIDTH 14.9 % (11.5-14.5); RED BLOOD CELL CT 3.62 /CUMM (4.20-5.40); WHITE BLOOD CELL COUNT 7.2 /CUMM (4.8-10.8)
[2018-03-25] MEDS ORDERED: ATORVASTATIN CA80 M1 PO (10:30)
[2018-03-25] MEDS ORDERED: PLAVIX75 M1 PO (10:30)
--- NOTE | 2018-03-25 10:31 | Patient Discharge Instructions ---
Discharge Instructions General Discharge Information You were seen/treated for: Stroke Special Instructions: -Please follow-up with your primary care doctor after 1 week -Please follow-up with neurologist within 1 week -Please take medication as directed -Please follow-up with vascular surgery for carotid endarterectomy Diet Recommended Diet: Heart Healthy Activity Activity Self Limited: Yes Acute Coronary Syndrome Inclusion Criteria At DC or during hospital stay patient has or had the following: ACS DIAGNOSIS No Discharge Core Measures Meds if any: Prescribed or Continued at Discharge Meds if any: NOT Prescribed or Continued at Discharge Congestive Heart Failure Inclusion Criteria At DC or during hospital stay patient has or had the following: CHF DIAGNOSIS No Discharge Core Measures Meds if any: Prescribed or Continued at Discharge Meds if any: NOT Prescribed or Continued at Discharge Cerebrovascular accident Inclusion Criteria At DC or during hospital stay patient has or had the following: CVA/TIA Diagnosis Yes Discharge Core Measures Meds if any: Prescribed or Continued at Discharge Antithrombotic Yes Statin (required if LDL =>70) Yes Meds if any: NOT Prescribed or Continued at Discharge Venous thromboembolism Inclusion Criteria VTE Diagnosis No VTE Type NONE VTE Confirmed by (Test) NONE Discharge Core Measures - Per Current guidelines, there needs to be overlap - treatment for the first 5 days of Warfarin therapy. - If discharged on Warfarin prior to 5 days of - overlap therapy, the patient will need to be - assessed for post discharge needs including - *Post discharge parental anticoagulation - *Warfarin and/or parental anticoagulation education - *Follow up date to check INR post discharge At least 5 days overlap therapy as Inpatient No Meds if any: Prescribed or Continued at Discharge Note: Overlap Therapy is Warfarin and Anticoagulant Meds if any: NOT Prescribed or Continued at Discharge
--- NOTE | 2018-03-25 11:52 | ECHOCARDIOGRAM REPORT ---
LANCEMarch Age: 78 : Gender: F Exam Date: 03/24/2018 11:22 Exam Location: 1 [address] Ht (in): 61 Wt (lb): 125 BSA: 1.57 BP: 116 / 56 Ordering Physician: Victorina Beard MD Referring Physician: Victorina Beard MD Technologist: Sandro Butler [facility] Room Number: 182-1 Indications: rule out embolic cause, possible lt atrial mass Rhythm: Sinus Technical Quality: Good Medications propofol Ease of Transducer Insertion Complications none Technical Difficulty none FINDINGS Left Ventricle Normal global left ventricular size, wall thickness, systolic function with no obvious regional wall motion abnormalities. Right Ventricle Normal right ventricular size and function. Right Atrium Normal right atrial size. Left Atrium Left atrial dilatation. LA Appendage Normal left atrial appendage. IA Septum Normal interatrial septum. Agitated saline bubble stidy is negative for PFO or ASD. Mitral Valve The mitral valve is thickened. There is calcification of the chordae tendinae. Aortic Valve The aortic valve is trileaflet. Calcification and thickening of the aortic valve leaflets is noted with no definite vegetations seen. Tricuspid Valve Structurally normal tricuspid valve. Trace tricuspid regurgitation. Pulmonic Valve Structurally normal pulmonic valve. Trace pulmonic regurgitation. Pericardium No pericardial effusion. Great Vessels Normal size thoracic aorta. CONCLUSIONS Normal global left ventricular size, wall thickness, systolic function with no obvious regional wall motion abnormalities. Left atrial dilatation. Calcification and thickening of the aortic valve leaflets is noted with no definite vegetations seen. Trace tricuspid regurgitation. Trace pulmonic regurgitation. There is calcification of the chordae tendinae. No vegetations or thrombus seen. Willard Aly M.D. (Electronically Signed) Final Date: 25 March 2018 11:51 MEASUREMENTS (Male / Female) Normal Values
[2018-03-25] MEDS ORDERED: AUGMENTIN 875-1 EACH PO (13:12)
--- NOTE | 2018-03-25 13:34 | PN- Cardiology ---
Subjective Subjective: Comfortable. No chest pain. No SOB. No palp. No nausea or vomiting. Objective Vital Signs and I&Os Vital Signs Date Time Temp Pulse Resp B/P B/P Pulse O2 O2 Flow FiO2 Mean Ox Delivery Rate 03/25 1020 Room Air Room Air 03/25 0859 92 120/54 03/25 0710 97.8 84 20 130/68 98 Room Air 03/24 2251 99.6 03/24 2232 100.2 90 24 132/88 94 03/24 2147 100.2 03/24 1400 98.3 80 20 140/70 98 Intake & Output 03/25 1600 03/25 0800 03/25 0000 03/24 1600 03/24 0800 03/24 0000 Intake Total 300 120 200 0 400 Output Total 450 350 500 Balance 300 120 -250 -350 -100 Intake, Oral 300 120 200 0 400 Number 1 1 1 Bowel Movements Output, Urine 450 350 500 Patient 128 lb 125 lb Weight Weight Bed scale Measurement Method Physical Exam: General: no apparent distress. Eyes: No obvious scleral icterus. HEENT: No jugular venous distention or abnormal jugular venous pulsations. Cardiovascular: Normal intensity S1/S2. Regular. 1/6 systolic murmur. Respiratory: Lungs clear to auscultation bilaterally. Abdomen: Soft, nontender with no guarding or rebound tenderness. Musculoskeletal: No clubbing or cyanosis noted Skin: warm Neurologic: Alert Current Medications: Current Medications Sig/Bertha Start time Last Medication Dose Route Stop Time Status Admin Acetaminophen 650 MG ONCE ONE 03/24 1800 DC 03/24 PO 03/24 1801 2147 Atorvastatin Calcium 80 MG 1700 03/22 1700 AC 03/24 PO 1706 Atropine Sulfate 1 GTT 03/24 0900 AC 03/24 OPH 0813 Benzocaine/Menthol 1 HARRIS Q2P PRN 03/24 1500 AC PO Brimonidine Tartrate 1 GTT BID 03/22 2100 AC 03/25 OPH 0859 Ceftriaxone Sodium 1,000 MG ONCE ONE 03/25 1315 DC IV 03/25 1316 Clopidogrel Bisulfate 75 MG DAILY 03/23 0900 AC 03/25 PO 0858 Gabapentin 100 MG TID 03/22 1400 AC 03/25 PO 0858 Insulin Aspart 0 TIDAC/HS 03/22 1700 AC 03/25 SC 0750 Lisinopril 5 MG DAILY 03/23 0900 AC 03/25 PO 0859 Mirtazapine 15 MG AT BEDTIME 03/22 2100 AC 03/24 PO 2146 Risperidone 2 MG AT BEDTIME 03/22 2100 AC 03/24 PO 2146 Results Last 48 Hrs of Labs/Mics: Laboratory Tests 03/25/18 1119: Urine Color YEL, Urine Clarity CLDY H, Urine pH 6.0, Ur Specific Walker 1.020, Urine Protein NEG, Urine Ketones NEG, Urine Nitrite POS H, Urine Bilirubin NEG, Urine Urobilinogen 0.2, Ur Leukocyte Esterase LARGE H, Ur Microscopic SEDIMENT EXAMINED, Urine RBC 3-5, Urine WBC 25-50 H, Urine Bacteria MANY H, Urine Hemoglobin SMALL H, Urine Glucose NEG 03/25/18 0642: CBC w Diff NO MAN DIFF REQ, RBC 3.62 L, MCV 90.9, MCH 31.1 H, MCHC 34.2, RDW 14.9 H, MPV 8.2, Gran % 59.4, Lymphocytes % 27.2, Monocytes % 11.2 H, Eosinophils % 1.9, Basophils % 0.3, Absolute Granulocytes 4.2, Absolute Lymphocytes 1.9, Absolute Monocytes 0.8 H, Absolute Eosinophils 0.1, Absolute Basophils 0 03/24/18 0614: CBC w Diff NO MAN DIFF REQ, RBC 3.63 L, MCV 90.3, MCH 31.0, MCHC 34.3, RDW 14.6 H, MPV 8.2, Gran % 62.7, Lymphocytes % 22.4, Monocytes % 12.8 H, Eosinophils % 1.9, Basophils % 0.2, Absolute Granulocytes 4.2, Absolute Lymphocytes 1.5, Absolute Monocytes 0.9 H, Absolute Eosinophils 0.1, Absolute Basophils 0 Recent Imaging Studies: KELBY 03/24/18: Normal global left ventricular size, wall thickness, systolic function with no obvious regional wall motion abnormalities. Left atrial dilatation. Calcification and thickening of the aortic valve leaflets is noted with no definite vegetations seen. Trace tricuspid regurgitation. Trace pulmonic regurgitation. There is calcification of the chordae tendinae. No vegetations or thrombus seen. Assessment/Plan Assessment/Plan 1. Acute CVA status post TPA 2. Hypertension 3. Diabetes 4. Critical stenosis of the left ICA 5. No evidence of vegetation or thrombus on KELBY. Plan: * Continue antiplatelet therapy and statin therapy * Carotid endarterectomy planned with vascular surgery * Continue other cardiac medications Continue telemetry? Yes
[2018-03-25 14:28] VITALS: BP 120/54
[2018-03-25 14:55] VITALS: BP 122/58
== END 2018-03-25 16:10 | DRG 62 ==
LOC: ERH 18:27 → 1NO 19:38 → ERHI 19:38 → ENRESERV 20:21 → CRI 21:24 → ENTRNSPT 03-23 12:19 → EDTRNSPTSTS 03-23 12:43 → EDTRNSPTTM 03-23 12:43 → EDTRNSPT 03-23 12:43 → CMPTRNSPT 03-23 12:59 → 1NO 03-23 13:01 → ENPENDDIS 03-25 14:15 → 1NO 03-25 16:10
PROVIDERS: Internal Medicine; Physician Assistant; Student in an Organized Health Care Education/Training Program
PROC: 3E03317 Introduction of Other Thrombolytic into Peripheral Vein, Percutaneous Approach (ICD-10-PCS; principal; 2018-03-21)
PROC: B24BZZ4 Ultrasonography of Heart with Aorta, Transesophageal (ICD-10-PCS; 2018-03-25)
DX: I63.232 Cerebral infarction due to unspecified occlusion or stenosis of left carotid arteries (principal); I50.32 Chronic diastolic (congestive) heart failure; E87.1 Hypo-osmolality and hyponatremia; F32.3 Major depressive disorder, single episode, severe with psychotic features; R47.01 Aphasia; I10 Essential (primary) hypertension; I11.0 Hypertensive heart disease with heart failure; F32.9 Major depressive disorder, single episode, unspecified; Z79.4 Long term (current) use of insulin; H54.8 Legal blindness, as defined in USA; E11.21 Type 2 diabetes mellitus with diabetic nephropathy; I16.0 Hypertensive urgency; Z90.710 Acquired absence of both cervix and uterus; Z85.42 Personal history of malignant neoplasm of other parts of uterus; M54.9 Dorsalgia, unspecified; Z96.649 Presence of unspecified artificial hip joint; Z96.653 Presence of artificial knee joint, bilateral; Z66 Do not resuscitate
CPT/HCPCS: 1NP; 70551; CCU; 36415; 36592; 71045; 80307; 81001; 82436; 87040; 87086; 93005; 93010; 93306; 93325; 96105-GN; 96374; 96375; 97110-GO; 97116-GO; 97162-GP; 97165-GO; 97530-GO; 99291; J0696; J1815; J7040

== ENCOUNTER 2018-04-27 16:55 | Emergency (ER) | payer OTHER, MEDICARE ==
[~2018-04-27] VITALS: Ht 152.4 cm; Wt 59.4 kg
[~2018-04-27 16:55] MED LIST changes: +ATORVASTATIN CA80 M1 PO; +ATROPINE SULFATE2 ML OS; -ATROPINE SULFATE2 ML OU; +AUGMENTIN 875-1 EACH PO; +MIRTAZAPINE15 M2 PO; +NOVOLOG100 UNIT/2 SC; +PLAVIX75 M1 PO; +RISPERIDONE2 M1 PO; +TYLENOL WITH C1 EACH PO
--- NOTE | 2018-04-27 17:09 | ED DYSPNEA/ASTHMA COMPLAINT ---
History of Present Illness General Chief Complaint: Allergy Symptoms Stated Complaint: BIBA FOR ?ALLERGIC REACTION TO LYSOL Source: patient, old records, EMS Exam Limitations: no limitations Vital Signs & Intake/Output Vital Signs & Intake/Output Vital Signs Date Time Temp Pulse Resp B/P B/P Pulse O2 O2 Flow FiO2 Mean Ox Delivery Rate 04/27 1702 100 04/27 1701 98.1 86 20 174/82 100 Room Air Allergies Coded Allergies: No Known Allergies (03/21/18) Reconcile Medications Aspirin (Ecotrin*) 81 MG TABLET.DR 1 TAB PO DAILY HEART/BLOOD (Reported) Atenolol 25 MG TABLET 1 TAB PO DAILY BP (Reported) Atorvastatin Calcium 80 MG TABLET 1 TAB PO 1700 STROKE Atropine Sulfate 1 % DROPS 1 DROP OS QW LEFT EYE (Reported) Cholecalciferol (Vitamin D3) 1,000 UNIT TABLET 1 TAB PO DAILY SUPPLEMENT ( Reported) Clopidogrel Bisulfate (Plavix) 75 MG TABLET 1 TAB PO DAILY STROKE Clotrimazole (Antifungal) 1 % CREAM..G. 1 BLANQUITA TOP DAILY BOTH FEET (Reported) Cyanocobalamin (Vitamin B-12) (B-12 Dots) 500 MCG TABLET 1 TAB PO DAILY SUPPLEMENT (Reported) Furosemide 20 MG TABLET 1 TAB PO DAILY DIURETIC (Reported) Gabapentin 100 MG CAPSULE 1 CAP PO TID NERVE PAIN (Reported) Insulin Aspart (Novolog) 100 UNIT/ML VIAL DM (Reported) BLOOS SUGAR SS <80 NONE, DRINK JUCIE 80-150 NONE 151-200 1 UNIT 201-250 2 UNITS 251-300 3 UNITS 301-350 4 UNITS 351-400 6 UNITS >400 8 UNITS CALL Insulin Glargine,Hum.rec.anlog (Lantus Solostar) 100 UNIT/ML (3 ML) INSULN.PEN 12 UNIT SC QPM DM (Reported) Mirtazapine 15 MG TABLET 1 TAB PO QHS PRN INSOMNIA (Reported) Multivitamin-Min/Iron/FA/Vit K (Multi-Day Plus Minerals Tablet) 18 MG IRON-400 MCG-25 MCG TABLET 1 TAB PO DAILY SUPPLEMENT (Reported) [place]-3 Fatty Acids (Fish Oil Concentrate) 1,000 MG CAPSULE 1 SGL PO DAILY SUPPLEMENT (Reported) Prednisolone Acetate (Omnipred) 1 % DROPS.SUSP 1 GTT OU DAILY BOTH EYES ( Reported) Risperidone 2 MG TABLET 1 TAB PO QHS SCHIZOPHRENIA (Reported) Tylenol With Codeine (Tylenol With Codeine #3 Tablet) 300 MG-30 MG TABLET 1 TAB PO BID PRN PAIN (Reported) Vit A/Vit C/Vit E/Zinc/Copper (Preservision Areds Softgel) 14,320-226 CAPSULE 2 SGL PO DAILY SUPPLEMENT (Reported) Triage Note: PT STATES SHE WAS SPRAYING ANTS WITH LYSOL AND SHE THINKS SHE IS HAVING AN ALLERGIC REACTION. PT STATES SHE CAN'T BREATH. 02 SAT 100% ON RA. PT IN NO ACUTE DISTRESS Triage Nurses Notes Reviewed? yes HPI: Patient was spraying ants with Lysol and then she felt like her throat was closing up. Patient called 911. Patient states that she had an allergic reaction to some deodorant spray in the past. Patient denies any chest pain or headache. There is no lightheadedness. There is no throat pain. No difficulty swallowing. Patient had a carotid endarterectomy 6 weeks ago. Past History Travel History Traveled to [place] past 21 day No Medical History Any Pertinent Medical History? 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 No other family history of epilepsy). Hx Contributory? No Review of Systems Review of Systems Constitutional: Reports: no symptoms. EENTM: Reports: see HPI. Respiratory: Reports: see HPI. Cardiovascular: Reports: no symptoms. GI: Reports: no symptoms. Genitourinary: Reports: no symptoms. Musculoskeletal: Reports: no symptoms. Skin: Reports: no symptoms. Neurological/Psychological: Reports: no symptoms. Hematologic/Endocrine: Reports: no symptoms. Immunologic/Allergic: Reports: no symptoms. All Other Systems: Reviewed and Negative Physical Exam Physical Exam General Appearance: well developed/nourished, alert, awake, anxious, mild distress Head: atraumatic, normal appearance Eyes: Bilateral: PERRL, EOMI. Ears, Nose, Throat: normal pharynx, normal ENT inspection, hearing grossly normal Neck: normal inspection, supple, full range of motion, NO STRIDOR Respiratory: normal breath sounds, chest non-tender, no respiratory distress, lungs clear Cardiovascular: regular rate/rhythm, normal peripheral pulses Gastrointestinal: normal bowel sounds, soft, non-tender, no organomegaly Extremities: normal inspection, normal capillary refill, normal range of motion, no edema Neurologic/Psych: no motor/sensory deficits, awake, alert, oriented x 3, normal gait, normal mood/affect Skin: intact, normal color, warm/dry Lymphatic: no anterior cervical nancy Comments: SPEAKING FULL SENTENCES Core Measures ACS in differential dx? No CVA/TIA Diagnosis No Sepsis Present: No Sepsis Focused Exam Completed? No Progress Differential Diagnosis: ALLERGIC REACTIOON Plan of Care: Orders Procedure Date/time Status XRY-CHEST XRAY, TWO VIEWS 04/27 1704 Active Current Medications Sig/Bertha Start time Last Medication Dose Stop Time Status Admin Diphenhydramine HCl 25 MG ONCE ONE 04/27 1715 UNVr 04/27 (Benadryl) 04/27 1716 1708 Diagnostic Imaging: Viewed by Me: Radiology Read. Discussed w/RAD: Radiology Read. CXR Impression: PATIENT: DONNA PRESENT AGE: 78 PATIENT ACCOUNT NO: [id number] : 39 LOCATION: [facility] ORDERING PHYSICIAN: Med Garcia MD SERVICE DATE: 04/27/18 EXAM TYPE: RAD - XRY-CHEST XRAY, TWO VIEWS EXAMINATION: XR CHEST CLINICAL INFORMATION: Shortness of breath. COMPARISON: Chest x-ray 03/22/2018 TECHNIQUE: 2 views of the chest were obtained. FINDINGS: Lungs are clear. No pulmonary vascular congestion. There is no pleural effusion. The heart size is normal. The cardiac and mediastinal contours are normal. There are calcifications of the thoracic aorta. There is no acute osseous abnormality. IMPRESSION: Unremarkable examination. DICTATED BY: Abhinav Allen MD DATE/TIME DICTATED:04/27/181806 [employer]:NANCY DATE/TIME TRANSCRIBED:04/27/181806 CONFIDENTIAL, DO NOT COPY WITHOUT APPROPRIATE AUTHORIZATION. <Electronically signed in Other Vendor System> SIGNED BY: Abhinav Allen MD 04/27/18 1998 Initial ED EKG: none Comments: Patient is feeling much better after Benadryl. Chest x-ray is negative. Lungs are clear to auscultation bilaterally. Patient is stable for discharge. Departure Departure Disposition: HOME OR SELF CARE Condition: Stable Clinical Impression Primary Impression: Allergic reaction Referrals: Dory HEBERT,Sigifredo Gonzalez (PCP/Family) Additional Instructions: RETURN IF SYMPTOMS WORSEN OR FOR ANY CONCERNS Departure Forms: Customer Survey General Discharge Information Critical Care Note Critical Care Note Critical Care Time: non-applicable
[2018-04-27] MEDS ORDERED: B-12 DOTS500 MCG PO (17:18)
[2018-04-27] MEDS ORDERED: VITAMIN D31000 UNI2 PO (17:18)
[2018-04-27] MEDS ORDERED: ASPIRIN EC81 M1 PO (17:19)
[2018-04-27] MEDS ORDERED: ANTIFUNGAL113 GM TOP (17:21)
[2018-04-27] MEDS ORDERED: MULTI-DAY PLUS1 EAC1 PO (17:22)
--- NOTE | 2018-04-27 18:12 | RADIOLOGY REPORT ---
EXAMINATION: XR CHEST CLINICAL INFORMATION: Shortness of breath. COMPARISON: Chest x-ray 03/22/2018 TECHNIQUE: 2 views of the chest were obtained. FINDINGS: Lungs are clear. No pulmonary vascular congestion. There is no pleural effusion. The heart size is normal. The cardiac and mediastinal contours are normal. There are calcifications of the thoracic aorta. There is no acute osseous abnormality. IMPRESSION: Unremarkable examination.
[2018-04-27 18:46] VITALS: BP 177/84
== END 2018-04-27 18:45 ==
LOC: ERH 16:55
DX: T78.40XA Allergy, unspecified, initial encounter (principal)
CPT/HCPCS: 71046

== ENCOUNTER 2018-06-10 21:52 | Inpatient (IN) | payer OTHER, MEDICARE ==
[~2018-06-10] VITALS: Ht 152.4 cm; Wt 59.0 kg
[~2018-06-10 21:52] MED LIST changes: +ANTIFUNGAL113 GM TOP; +B-12 DOTS500 MCG PO; +MULTI-DAY PLUS1 EAC1 PO; +VITAMIN D31000 UNI2 PO
--- NOTE | 2018-06-10 21:59 | ED GENERAL ADULT ---
See Addendum History of Present Illness General Chief Complaint: Neuro Symptoms/ Deficit Stated Complaint: "STROKE LIKE SYMPTOMS" Source: patient, family Exam Limitations: poor historian Vital Signs & Intake/Output Vital Signs & Intake/Output Vital Signs Date Time Temp Pulse Resp B/P B/P Pulse O2 O2 Flow FiO2 Mean Ox Delivery Rate 06/11 0128 98.1 71 18 184/72 99 Room Air 06/11 0015 98.7 73 18 181/77 99 Room Air 06/10 2308 98.4 91 18 180/82 100 Room Air 06/10 2259 100 06/10 2158 97.5 75 17 181/77 98 Room Air ED Intake and Output 06/11 0000 06/10 1200 Intake Total Output Total 800 Balance -800 Output, Urine 800 Patient 130 lb Weight Weight Standing Scale Measurement Method Allergies Coded Allergies: No Known Allergies (03/21/18) Reconcile Medications Aspirin (Ecotrin*) 81 MG TABLET.DR 1 TAB PO DAILY HEART/BLOOD (Reported) Atenolol 25 MG TABLET 1 TAB PO DAILY BP (Reported) Atorvastatin Calcium 80 MG TABLET 1 TAB PO 1700 STROKE Atropine Sulfate 1 % DROPS 1 DROP OS QW LEFT EYE (Reported) Cholecalciferol (Vitamin D3) 1,000 UNIT TABLET 1 TAB PO DAILY SUPPLEMENT ( Reported) Clopidogrel Bisulfate (Plavix) 75 MG TABLET 1 TAB PO DAILY STROKE Clotrimazole (Antifungal) 1 % CREAM..G. 1 BLANQUITA TOP DAILY BOTH FEET (Reported) Cyanocobalamin (Vitamin B-12) (B-12 Dots) 500 MCG TABLET 1 TAB PO DAILY SUPPLEMENT (Reported) Furosemide 20 MG TABLET 1 TAB PO DAILY DIURETIC (Reported) Gabapentin 100 MG CAPSULE 1 CAP PO TID NERVE PAIN (Reported) Insulin Aspart (Novolog) 100 UNIT/ML VIAL DM (Reported) BLOOS SUGAR SS <80 NONE, DRINK JUCIE 80-150 NONE 151-200 1 UNIT 201-250 2 UNITS 251-300 3 UNITS 301-350 4 UNITS 351-400 6 UNITS >400 8 UNITS CALL Insulin Glargine,Hum.rec.anlog (Lantus Solostar) 100 UNIT/ML (3 ML) INSULN.PEN 12 UNIT SC QPM DM (Reported) Mirtazapine 15 MG TABLET 1 TAB PO QHS PRN INSOMNIA (Reported) Multivitamin-Min/Iron/FA/Vit K (Multi-Day Plus Minerals Tablet) 18 MG IRON-400 MCG-25 MCG TABLET 1 TAB PO DAILY SUPPLEMENT (Reported) [place]-3 Fatty Acids (Fish Oil Concentrate) 1,000 MG CAPSULE 1 SGL PO DAILY SUPPLEMENT (Reported) Prednisolone Acetate (Omnipred) 1 % DROPS.SUSP 1 GTT OU DAILY BOTH EYES ( Reported) Risperidone 2 MG TABLET 1 TAB PO QHS SCHIZOPHRENIA (Reported) Tylenol With Codeine (Tylenol With Codeine #3 Tablet) 300 MG-30 MG TABLET 1 TAB PO BID PRN PAIN (Reported) Vit A/Vit C/Vit E/Zinc/Copper (Preservision Areds Softgel) 14,320-226 CAPSULE 2 SGL PO DAILY SUPPLEMENT (Reported) Triage Note: PT TO ED WITH GRAND DAUGHTER WITH CONCERN FOR CVA. PT WITH APHASIA. FACIAL SYMMETRY NOTED. PT RECEIVED TPA APPROX 3-4 MONTHS AGO FOR CVA. PT ABLE TO FOLLOW COMMANDS. MD OLIVEIRA IN TRIAGE FOR EVAL. Triage Nurses Notes Reviewed? yes Onset: Abrupt Duration: minute(s): Timing: recent history HPI: 06/10/18 10:58 PM 78-year-old female presents to the emergency department for altered mental status. According to the granddaughter who is a nurse the patient was in her usual state of health until earlier tonight until approximately 20 minutes prior to arrival when she suddenly became confused and had left sided facial weakness. She recently received TPA for stroke approximately 3 months ago. She had similar symptoms. Now she is having expressive aphasia. On initial exam I do not appreciate any facial asymmetry or weakness. She is oriented 2 but says that she's having difficulty with saying what she feels. Stroke alert was called and I reviewed the findings with the on-call neurologist Dr. Colmenares. Based on the fact that the patient currently has an NIH stroke scale of 0 TPA is not indicated at this time. (Mitch KHOLI,Dhruv Linda) Past History Travel History Traveled to [place] past 21 day No Medical History Any Pertinent Medical History? 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 No other family history of epilepsy). Hx Contributory? No (Dhruv Oliveira DO) Review of Systems Review of Systems Constitutional: Denies: fever. EENTM: Denies: visual changes. Respiratory: Denies: short of breath. Cardiovascular: Denies: chest pain. GI: Denies: abdominal pain. Genitourinary: Reports: no symptoms. Musculoskeletal: Reports: no symptoms. Skin: Reports: no symptoms. Neurological/Psychological: Reports: confusion. Hematologic/Endocrine: Reports: no symptoms. Immunologic/Allergic: Reports: no symptoms. (Dhruv Oliveira DO) Physical Exam Physical Exam General Appearance: well developed/nourished, alert, awake, anxious, moderate distress Head: atraumatic, normal appearance Eyes: Bilateral: normal appearance, PERRL, EOMI. Ears, Nose, Throat: normal pharynx, normal ENT inspection Neck: normal inspection, supple, full range of motion Respiratory: normal breath sounds, chest non-tender, no respiratory distress Cardiovascular: regular rate/rhythm Peripheral Pulses: 4+ radial (R), 4+ radial (L) Gastrointestinal: soft, non-tender Back: normal range of motion Extremities: normal inspection, normal range of motion, no edema Neurologic/Psych: no motor/sensory deficits, awake, alert, OX 2 Skin: intact, normal color, warm/dry Core Measures ACS in differential dx? No CVA/TIA Diagnosis: Yes NIH Stroke Scale (24 Hours) NIH Stroke Scale (24 Hours) Response Value Level of Consciousness alert 0 LOC Questions answers both correctly 0 LOC Commands obeys both correctly 0 Best Gaze normal 0 Visual Rob no visual loss 0 Facial Paresis normal 0 Motor Arm - Left no drift 0 Motor Arm - Right no drift 0 Motor Leg - Left no drift 0 Motor Leg - Right no drift 0 Limb Ataxia no ataxia 0 Sensory normal 0 Best Language no aphasia 0 Dysarthria normal articulation 0 Extinction and Inattention no neglect 0 Total 0 Date Last Known Well: 06/10/18 Time Last Known Well: 2131 Symptom start date: 06/10/18 Symptom start time: 2132 tPA Risk/Benefit discussion I have discussed the risks, benefits, and alternatives of Alteplase treatment including: - If given promptly, can resolve or have major improvement in stroke symptoms. - Bleeding (hemorrhage) is the most common risk that can occur. - Bleeding may occur into the brain and cause~long-term serious disability~ including - this is rare, affecting about 1% of patients. - Alternative treatments with proven benefit for patients with stroke include aspirin and care in a specialized unit where staff members pay careful attention to a variety of basic aspects of care. tPA given? No Reason tPA not given Medical Contraindication Swallow Evaluation Pass Sepsis Present: No Sepsis Focused Exam Completed? No (Mitch KOHLI,Dhruv Linda) Progress Differential Diagnoses I considered the following diagnoses in my evaluation of the patient: [CVA, TIA, electrolyte derangement, sepsis, acute coronary syndrome,] Plan of Care: Orders Procedure Date/time Status Consistent Carbohydrate 2 06/11 B Active CORTISOL AM 06/11 700 Active CBC WITHOUT DIFFERENTIAL 06/11 700 Active BASIC ELECTROLYTES PLUS BUN&CR 06/11 700 Active LIPID PANEL 06/11 0500 Active Lab Add-on Test 06/11 0442 Active Lab Add-on Test 06/11 040 Active 24 HR URINE LYTES 06/11 0400 Active Pathway - chart 06/11 0140 Active Patient Data 06/11 0140 Active Code Status 06/11 0140 Active Weight 06/11 0127 Active Teach/Educate 06/11 127 Active Pain Treatment and Response 06/11 127 Active Nutritional Intake, Monitor 06/11 127 Active Isolation 06/11 127 Active Patient Care Conference 06/11 012 Active Activity/Ambulation 06/11 127 Complete SWALLOW EVALUATION 06/11 UNK Active PT Evaluate & Treat 06/11 UNK Active House Staff 06/11 UNK Active Lab Add-on Test 06/11 UNK Active Occupational Tx Eval & Treat 06/11 UNK Active VTE Mechanical Prophylaxis 06/11 UNK Active Vital Signs 06/11 UNK Active Telemetry/Blueprint Reader 06/11 UNK Active Nursing Misc 06/11 UNK Active NIH Stroke Scale 06/11 UNK Active Intake & Output 06/11 UNK Active Activity/Ambulation 06/11 UNK Active MRI-HEAD W/O CINTIA 06/11 UNK Active Patient Data 06/10 2348 Active ED Holding Orders 06/10 2343 Active Admit to inpatient 06/10 2343 Active Vital Signs 06/10 2343 Active Code Status 06/10 234 Complete NIH Stroke Scale 06/10 2301 Complete Intake & Output 06/10 225 Active URINE OSMOLALITY 06/10 225 Active TSH REFLEX 06/10 222 Active SERUM OSMOLALITY 06/10 222 Active Saline Lock 06/10 2217 Active URINALYSIS 06/10 2217 Complete COMPREHENSIVE METABOLIC PANEL 06/10 2217 Active CBC WITHOUT DIFFERENTIAL 06/10 2217 Complete EKG 06/10 2217 Active FingerStick- Glucose 06/10 2202 Active Current Medications Sig/Bertha Start time Last Medication Dose Stop Time Status Admin Insulin Detemir 12 UNITS QPM 06/11 2100 AC (Levemir) Risperidone 2 MG AT BEDTIME 06/11 2100 AC (risperiDONE) Atorvastatin Calcium 80 MG 1700 06/11 1700 AC (Lipitor) Aspirin Buffered 81 MG DAILY 06/11 09 AC (Ecotrin) Aspirin Buffered 81 MG DAILY 06/11 09 AC (Ecotrin) Clopidogrel Bisulfate 75 MG DAILY 06/11 900 AC (Plavix) Enoxaparin Sodium 40 MG DAILY 06/11 09 AC (Lovenox) Gabapentin 100 MG TID 06/11 09 AC (Neurontin) Sodium Chloride 1,000 MG BID 06/11 09 AC (Sodium Chloride) Insulin Aspart 0 TIDAC 06/11 08 AC (NovoLOG) Mirtazapine 15 MG QPM PRN 06/11 0415 AC (Remeron) Acetaminophen 650 MG Q6P PRN 06/11 0145 AC 06/11 (Tylenol) 0226 Acetaminophen 1,000 MG Q6P PRN 06/11 0145 AC (Ofirmev) Oxycodone/ 1 TAB Q6P PRN 06/11 0145 AC Acetaminophen (Percocet) Laboratory Tests 06/10/18 225: Urine Osmolality Pending 06/10/182255: Urine Color STRAW, Urine Clarity CLEAR, Urine pH 7.5, Ur Specific [place] 1.010, Urine Protein NEG, Urine Ketones NEG, Urine Nitrite NEG, Urine Bilirubin NEG, Urine Urobilinogen 0.2, Ur Leukocyte Esterase NEG, Ur Microscopic EXAM NOT REQUIRED, Urine Hemoglobin NEG, Urine Glucose NEG 06/10/182220: Anion Gap 11, Estimated GFR > 60, BUN/Creatinine Ratio 16.0, Glucose 132 H, Serum Osmolality Pending, Calcium 9.0, Total Bilirubin 0.5, AST 27, ALT 23, Alkaline Phosphatase 103, Total Protein 6.9, Albumin 3.6, Globulin 3.3, Albumin/ Globulin Ratio 1.1, TSH &T3 &Free T4 Intrp Pending, CBC w Diff NO MAN DIFF REQ, RBC 3.62 L, MCV 90.2, MCH 31.4 H, MCHC 34.8, RDW 13.9, MPV 7.2 L, Gran % 50.6 , Lymphocytes % 34.8, Monocytes % 12.6 H, Eosinophils % 1.7, Basophils % 0.3, Absolute Granulocytes 2.2, Absolute Lymphocytes 1.5, Absolute Monocytes 0.6, Absolute Eosinophils 0.1, Absolute Basophils 0 Initial ED EKG: NSR (PAC's) (Dhruv Oliveira DO) Departure Departure Disposition: STILL A PATIENT Condition: Stable Clinical Impression Primary Impression: Altered mental status Secondary Impressions: Hyponatremia Referrals: Dory HEBERT,Sigifredo Gonzalez (PCP/Family) Departure Forms: Customer Survey General Discharge Information (Dhruv Oliveira DO) Departure Comments pt admitted prior to me taking over patient. (Shoaib HEBERT,William Arredondo) Critical Care Note Critical Care Note Critical Care Time: 30-74 min (Dhruv Oliveira DO)
--- NOTE | 2018-06-10 22:08 | ED GENERAL ADULT ---
History of Present Illness General Chief Complaint: Neuro Symptoms/ Deficit Stated Complaint: "STROKE LIKE SYMPTOMS" Source: family Exam Limitations: clinical condition Vital Signs & Intake/Output Vital Signs & Intake/Output Vital Signs Date Time Temp Pulse Resp B/P B/P Pulse O2 O2 Flow FiO2 Mean Ox Delivery Rate 06/10 2158 97.5 75 17 181/77 98 Room Air Allergies Coded Allergies: No Known Allergies (03/21/18) Reconcile Medications Aspirin (Ecotrin*) 81 MG TABLET.DR 1 TAB PO DAILY HEART/BLOOD (Reported) Atenolol 25 MG TABLET 1 TAB PO DAILY BP (Reported) Atorvastatin Calcium 80 MG TABLET 1 TAB PO 1700 STROKE Atropine Sulfate 1 % DROPS 1 DROP OS QW LEFT EYE (Reported) Cholecalciferol (Vitamin D3) 1,000 UNIT TABLET 1 TAB PO DAILY SUPPLEMENT ( Reported) Clopidogrel Bisulfate (Plavix) 75 MG TABLET 1 TAB PO DAILY STROKE Clotrimazole (Antifungal) 1 % CREAM..G. 1 BLANQUITA TOP DAILY BOTH FEET (Reported) Cyanocobalamin (Vitamin B-12) (B-12 Dots) 500 MCG TABLET 1 TAB PO DAILY SUPPLEMENT (Reported) Furosemide 20 MG TABLET 1 TAB PO DAILY DIURETIC (Reported) Gabapentin 100 MG CAPSULE 1 CAP PO TID NERVE PAIN (Reported) Insulin Aspart (Novolog) 100 UNIT/ML VIAL DM (Reported) BLOOS SUGAR SS <80 NONE, DRINK JUCIE 80-150 NONE 151-200 1 UNIT 201-250 2 UNITS 251-300 3 UNITS 301-350 4 UNITS 351-400 6 UNITS >400 8 UNITS CALL Insulin Glargine,Hum.rec.anlog (Lantus Solostar) 100 UNIT/ML (3 ML) INSULN.PEN 12 UNIT SC QPM DM (Reported) Mirtazapine 15 MG TABLET 1 TAB PO QHS PRN INSOMNIA (Reported) Multivitamin-Min/Iron/FA/Vit K (Multi-Day Plus Minerals Tablet) 18 MG IRON-400 MCG-25 MCG TABLET 1 TAB PO DAILY SUPPLEMENT (Reported) [place]-3 Fatty Acids (Fish Oil Concentrate) 1,000 MG CAPSULE 1 SGL PO DAILY SUPPLEMENT (Reported) Prednisolone Acetate (Omnipred) 1 % DROPS.SUSP 1 GTT OU DAILY BOTH EYES ( Reported) Risperidone 2 MG TABLET 1 TAB PO QHS SCHIZOPHRENIA (Reported) Tylenol With Codeine (Tylenol With Codeine #3 Tablet) 300 MG-30 MG TABLET 1 TAB PO BID PRN PAIN (Reported) Vit A/Vit C/Vit E/Zinc/Copper (Preservision Areds Softgel) 14,320-226 CAPSULE 2 SGL PO DAILY SUPPLEMENT (Reported) Triage Nurses Notes Reviewed? yes Onset: Abrupt Duration: hour(s): Timing: single episode today HPI: 78 year old female presents to the emergency department with her family with the concerns of word finding, and difficulty performing tasks. 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 No other family history of epilepsy). Hx Contributory? No Review of Systems Review of Systems Constitutional: Reports: see HPI. Denies: fever. EENTM: Reports: no symptoms (blind). Respiratory: Reports: no symptoms. Denies: cough, short of breath. Cardiovascular: Reports: no symptoms. Denies: chest pain. GI: Reports: no symptoms. Genitourinary: Reports: no symptoms. Musculoskeletal: Reports: no symptoms. Skin: Reports: no symptoms. Neurological/Psychological: Reports: see HPI, other (aphasia). Hematologic/Endocrine: Reports: no symptoms. All Other Systems: Reviewed and Negative Physical Exam Physical Exam General Appearance: well developed/nourished, alert, awake, anxious, mild distress Head: atraumatic, normal appearance Eyes: Bilateral: normal appearance, PERRL, EOMI. Ears, Nose, Throat: normal ENT inspection Respiratory: normal breath sounds, no respiratory distress Cardiovascular: regular rate/rhythm Peripheral Pulses: 4+ radial (R), 4+ radial (L) Gastrointestinal: soft, non-tender Back: normal range of motion Extremities: normal inspection Neurologic/Psych: aphasia Skin: intact, normal color, warm/dry Core Measures ACS in differential dx? No CVA/TIA Diagnosis: Yes Sepsis Present: No Sepsis Focused Exam Completed? No Progress Differential Diagnoses I considered the following diagnoses in my evaluation of the patient: Plan of Care: Orders Procedure Date/time Status Saline Lock 06/10 2217 Active URINALYSIS 06/10 2217 Active COMPREHENSIVE METABOLIC PANEL 06/10 2217 Active CBC WITHOUT DIFFERENTIAL 06/10 2217 Complete EKG 06/[address] NECK ANGIOGRAM 06/[address] HEAD ANGIOGRAM 06/10 2209 Active Laboratory Tests 06/10/18 2221: Sodium Pending, Potassium Pending, Chloride Pending, Carbon Dioxide Pending, Anion Gap Pending, BUN Pending, Creatinine Pending, BUN/Creatinine Ratio Pending , Glucose Pending, Calcium Pending, Total Bilirubin Pending, AST Pending, ALT Pending, Alkaline Phosphatase Pending, Total Protein Pending, Albumin Pending, Globulin Pending, Albumin/Globulin Ratio Pending, CBC w Diff NO MAN DIFF REQ, RBC 3.62 L, MCV 90.2, MCH 31.4 H, MCHC 34.8, RDW 13.9, MPV 7.2 L, Gran % 50.6 , Lymphocytes % 34.8, Monocytes % 12.6 H, Eosinophils % 1.7, Basophils % 0.3, Absolute Granulocytes 2.2, Absolute Lymphocytes 1.5, Absolute Monocytes 0.6, Absolute Eosinophils 0.1, Absolute Basophils 0 Departure Departure Disposition: STILL A PATIENT Condition: Stable Referrals: Dory HEBERT,Sigifredo Gonzalez (PCP/Family) Departure Forms: Customer Survey General Discharge Information Critical Care Note Critical Care Note Critical Care Time: mins:
[2018-06-10 22:29] LABS: ABSOLUTE BASOPHIL COUNT 0 /CUMM (0.0-0.2); ABSOLUTE EOSINOPHIL COUNT 0.1 /CUMM (0.0-0.7); ABSOLUTE GRANULOCYTE CT 2.2 /CUMM (1.4-6.5); ABSOLUTE LYMPH COUNT 1.5 /CUMM (1.2-3.4); ABSOLUTE MONOCYTE COUNT 0.6 /CUMM (0.10-0.60); BASOPHIL % 0.3 % (0.0-2.0); EOSINOPHIL % 1.7 % (0-5); GRANULOCYTE % 50.6 % (42.2-75.2); HEMATOCRIT 32.7 % (37-47); MEAN CORPUSCULAR HGB 31.4 PG (27.0-31.0); MEAN CORPUSCULAR HGB CONC 34.8 G/DL (33.0-37.0); MEAN CORPUSCULAR VOLUME 90.2 FL (81.0-99.0); MEAN PLATELET VOLUME 7.2 FL (7.4-10.4); PLATELET COUNT 339 /CUMM (130-400); RBC DISTRIBUTION WIDTH 13.9 % (11.5-14.5); RED BLOOD CELL CT 3.62 /CUMM (4.20-5.40); WHITE BLOOD CELL COUNT 4.4 /CUMM (4.8-10.8)
--- NOTE | 2018-06-10 22:32 | CT SCAN REPORT ---
EXAMINATION: CT HEAD WITHOUT CONTRAST CLINICAL INFORMATION: Altered mental status. Assess for CVA. COMPARISON: 03/22/[address] and 03/24/2018 MRI TECHNIQUE: Contiguous axial imaging was performed from the skull base to vertex without intravenous administration of contrast. DLP: 614 mGy-cm FINDINGS: There is no evidence of acute intracranial hemorrhage or territorial infarction. No abnormal mass effect or midline shift is seen. Byrd to white matter differentiation is well preserved. No extra-axial fluid collections are identified. The ventricles are normal in size. Mild periventricular white matter changes are again seen suggesting chronic age-related small vessel ischemic change, similar to the prior study. Mild basal ganglia calcifications. The osseous structures and soft tissues are normal. The mastoid air cells and visualized portions of the paranasal sinuses are well aerated. IMPRESSION: Chronic appearing and age-related changes similar to the 03/22/2018 examination. No acute intracranial abnormality. Specifically no intracranial hemorrhage or obvious acute territorial infarction.
--- NOTE | 2018-06-10 23:31 | CT SCAN REPORT ---
EXAMINATION: CT ANGIOGRAM NECK WITH CONTRAST CT ANGIOGRAM BRAIN WITH CONTRAST CLINICAL INFORMATION: Expressive aphasia. COMPARISON: Noncontrast head CT performed just earlier and brain MRI 03/24/2018. TECHNIQUE: Test bolus sequences followed by intravenous administration 95 mL of Optiray 320. Helical imaging was performed in the axial plane from the thoracic inlet to the skull vertex. Delayed postcontrast imaging of the head was also performed. The data was processed at the orthopedic radiologic technologist workstation for generation of MIP sequences. Angled MIPs and volume rendered reformatted images were also generated at an offline 3D workstation. Stenoses are assessed in accordance with NASCET criteria unless otherwise indicated. DLP: 1840 mGy-cm FINDINGS: Postcontrast head CT: There is no intracranial hemorrhage, large acute infarction, or mass lesion. There is mild scattered hypoattenuation in the bilateral cerebral white matter and central helene, which is nonspecific but likely reflects small vessel disease. The ventricles are normal in size and configuration without evidence of hydrocephalus. No abnormal enhancement is seen. The visualized paranasal sinuses and mastoid air cells are clear. Neck CTA: There is somewhat limited evaluation of the neck vessels due to contrast timing. The distal common carotid arteries are patent. Atheromatous changes are noted at both carotid bifurcations without associated stenosis of the proximal internal carotid arteries. There are postoperative changes at the left carotid bifurcation likely on the basis of prior endarterectomy. The cervical left internal carotid artery is smaller in caliber than the right which is likely a chronic finding. The vertebral arteries are patent. Head CTA: Atheromatous changes are present at both carotid siphons without significant stenosis. Left A1 segment is hypoplastic but patent. The ACAs appear normal. The MCAs appear normal. Atheromatous changes are present along both intradural vertebral arteries without significant stenosis. The basilar artery is patent. The natural gas engineer are patent. No aneurysm is seen. Non-vascular findings: Patchy areas of opacity and consolidation are seen in the right upper lobe. There is pleural-parenchymal thickening at both lung apices. There is grade 1 anterolisthesis of C3 on C4 and C4 on C5. There is chronic compression fracture of C5 and to a lesser extent C6. There is multilevel disc height loss with advanced degenerative endplate changes present at C5-C6 and C6-C7. No acute fracture is seen. No neck mass or suspicious adenopathy is seen. IMPRESSION: CT head: - No intracranial hemorrhage or large acute infarction. - Mild small vessel ischemic changes in the cerebral white matter and central helene CTA neck: - No hemodynamically significant stenosis in the major arteries of the neck. - Probable left-sided carotid endarterectomy changes. CTA head: - No large vessel occlusion or significant stenosis within the intracranial circulation. Additional findings: - Groundglass opacities and patchy consolidation in the right upper lobe likely on the basis of an infectious/inflammatory process.
--- NOTE | 2018-06-11 01:10 | History & Physical ---
Dajuan Morales 06/11/18 0109: General Information and HPI MD Statement: I have seen and personally examined CHEYENNE THOMPSON and documented this H&P. The patient is a 78 year old F who presented with a patient stated chief complaint of [aphasia ]. Source of Information: patient Exam Limitations: aphasia History of Present Illness: Mrs Carrera is a 77-year-old female with past medical history of macular degeneration (legally blind with both eyes), hypertension, insulin-dependent diabetes mellitus complicated with neuropathy, chronic back pain, late onset paranoid schizophrenia, recent history of stroke came in with chief complaint of strokelike symptoms. Apparently the patient was doing all right when around 3:30 PM on the day of presentation, she had difficulty finding words. She noticed that she wanted to say something however she would not find words to describe express it, she continued to have the symptoms and she was scared that she would have had another stroke and therefore out of fear did not present to hospital immediately. She continued to have word finding difficulties and expression problem for another few hours when around 7 PM she called her granddaughter Florecita who found her to be not in her usual state and confused and saw some left- sided facial weakness and therefore brought her to [place] emergency department by ambulance. Of note patient was recently admitted to [facility] 3 months ago with suspected symptoms of stroke she was within the stroke window and received TPA. Upon presentation to emergency department the ER doctor did not see any facial asymmetry or weakness, a stroke alert was called and findings were reviewed with on-call neurologist Dr. crawford by ER physician, as the patient was 0 on NIH stroke scale, TPA was not indicated and she did not receive any TPA in the emergency department. She denied any chest pain, nausea, vomiting, diarrhea and abnormal seizure-like activity, loss of bowel or bladder control, any current weakness however she continued to have word finding difficulties even during history taking. Allergies/Medications Allergies: Coded Allergies: No Known Allergies (03/21/18) Home Med list Aspirin (Ecotrin*) 81 MG TABLET.DR 1 TAB PO DAILY HEART/BLOOD (Reported) Atenolol 25 MG TABLET 1 TAB PO DAILY BP (Reported) Atorvastatin Calcium 80 MG TABLET 1 TAB PO 1700 STROKE Atropine Sulfate 1 % DROPS 1 DROP OS QW LEFT EYE (Reported) Cholecalciferol (Vitamin D3) 1,000 UNIT TABLET 1 TAB PO DAILY SUPPLEMENT ( Reported) Clopidogrel Bisulfate (Plavix) 75 MG TABLET 1 TAB PO DAILY STROKE Clotrimazole (Antifungal) 1 % CREAM..G. 1 BLANQUITA TOP DAILY BOTH FEET (Reported) Cyanocobalamin (Vitamin B-12) (B-12 Dots) 500 MCG TABLET 1 TAB PO DAILY SUPPLEMENT (Reported) Furosemide 20 MG TABLET 1 TAB PO DAILY DIURETIC (Reported) Gabapentin 100 MG CAPSULE 1 CAP PO TID NERVE PAIN (Reported) Insulin Aspart (Novolog) 100 UNIT/ML VIAL DM (Reported) BLOOS SUGAR SS <80 NONE, DRINK JUCIE 80-150 NONE 151-200 1 UNIT 201-250 2 UNITS 251-300 3 UNITS 301-350 4 UNITS 351-400 6 UNITS >400 8 UNITS CALL Insulin Glargine,Hum.rec.anlog (Lantus Solostar) 100 UNIT/ML (3 ML) INSULN.PEN 12 UNIT SC QPM DM (Reported) Mirtazapine 15 MG TABLET 1 TAB PO QHS PRN INSOMNIA (Reported) Multivitamin-Min/Iron/FA/Vit K (Multi-Day Plus Minerals Tablet) 18 MG IRON-400 MCG-25 MCG TABLET 1 TAB PO DAILY SUPPLEMENT (Reported) [place]-3 Fatty Acids (Fish Oil Concentrate) 1,000 MG CAPSULE 1 SGL PO DAILY SUPPLEMENT (Reported) Prednisolone Acetate (Omnipred) 1 % DROPS.SUSP 1 GTT OU DAILY BOTH EYES ( Reported) Risperidone 2 MG TABLET 1 TAB PO QHS SCHIZOPHRENIA (Reported) Tylenol With Codeine (Tylenol With Codeine #3 Tablet) 300 MG-30 MG TABLET 1 TAB PO BID PRN PAIN (Reported) Vit A/Vit C/Vit E/Zinc/Copper (Preservision Areds Softgel) 14,320-226 CAPSULE 2 SGL PO DAILY SUPPLEMENT (Reported) Compliance With Home Meds: FAIR Past History Travel History Traveled to [place] past 21 day No Medical History Neurological: CVA, NEUROPATHY EENT: glaucoma, macular degeneration, LEGALLY BLIND - + PERIPHERAL VISION Cardiovascular: hypertension, 79% CAROTID OCCULSION Respiratory: NONE Gastrointestinal: NONE Hepatic: NONE Renal: NONE Musculoskeletal: NONE Psychiatric: major depressive disorder with psychotic features Endocrine: DIABETES (TYPE 2) Blood Disorders: NONE Cancer(s): NONE HAT BODY INSPECTOR/Reproductive: NONE History of MRSA: No History of VRE: No History of CDIFF: No Surgical History Surgical History: hip replacement, KNEE REPLACMENT ECHO Results (as available) Date of last Echo 03/24/18 Past Family/Social History Family History Relations & Conditions if any BROTHER (Seizures as a child, outgrown. No other family history of epilepsy). Psychosocial History Who Do You Live With? self Services at Home: None Primary Language: Macedonian Power of Winter Sports Manager/HCP? yes Name of POA/HCP: Padma Workman Functional Ability ADLs Independent: dressing, eating, toileting, bathing. Ambulation: cane IADLs Independent: food prep, telephone, medication admin. Needs Assist: shopping, housework, finances, transportation. Review of Systems Review of Systems Constitutional: Reports: weakness. Denies: chills, diaphoresis, fever, malaise. EENTM: Reports: blurred vision. Cardiovascular: Reports: no symptoms. Respiratory: Reports: no symptoms. GI: Reports: no symptoms. Genitourinary: Reports: no symptoms. Musculoskeletal: Reports: back pain. Skin: Reports: no symptoms. Neurological/Psychological: Reports: confusion. Hematologic/Endocrine: Reports: no symptoms. All Other Systems: Reviewed and Negative Exam & Diagnostic Data Last 24 Hrs of Vital Signs/I&O Vital Signs Date Time Temp Pulse Resp B/P B/P Pulse O2 O2 Flow FiO2 Mean Ox Delivery Rate 06/11 0128 98.1 71 18 184/72 99 Room Air 06/11 0015 98.7 73 18 181/77 99 Room Air 06/10 2308 98.4 91 18 180/82 100 Room Air 06/10 2259 100 06/10 2158 97.5 75 17 181/77 98 Room Air Intake & Output 06/11 0800 06/11 0000 06/10 1600 Intake Total Output Total 800 Balance -800 Output, Urine 800 Patient 72.121 kg 59 kg Weight Weight Reported by Patient Standing Scale Measurement Method Physical Exam General Appearance Alert, Oriented X3, Cooperative Skin No Rashes, No Breakdown HEENT Atraumatic, PERRLA, EOMI Neck Supple, No JVD Cardiovascular Regular Rate, Normal S1, Normal S2, No Murmurs Lungs Clear to Auscultation, Normal Air Movement Neurological Normal Tone, Sensation Intact, Reflexes 2+, difficulty finding words, couldnot do lateral rotation of both eye, limited strength checking in left hand due to wrist fracture and right leg due to back pain,left leg strength intact, right hand 5/5 Extremities No Clubbing, No Cyanosis, No Edema, Normal Pulses Vascular Normal Pulses Last 24 Hrs of Labs/Cipriano: Laboratory Tests 06/10/18 2256: Urine Color STRAW, Urine Clarity CLEAR, Urine pH 7.5, Ur Specific Gleason 1.010, Urine Protein NEG, Urine Ketones NEG, Urine Nitrite NEG, Urine Bilirubin NEG, Urine Urobilinogen 0.2, Ur Leukocyte Esterase NEG, Ur Microscopic EXAM NOT REQUIRED, Urine Hemoglobin NEG, Urine Glucose NEG 06/10/18 2221: Anion Gap 11, Estimated GFR > 60, BUN/Creatinine Ratio 16.0, Glucose 132 H, Serum Osmolality Pending, Calcium 9.0, Total Bilirubin 0.5, AST 27, ALT 23, Alkaline Phosphatase 103, Total Protein 6.9, Albumin 3.6, Globulin 3.3, Albumin/ Globulin Ratio 1.1, TSH &T3 &Free T4 Intrp Pending, CBC w Diff NO MAN DIFF REQ, RBC 3.62 L, MCV 90.2, MCH 31.4 H, MCHC 34.8, RDW 13.9, MPV 7.2 L, Gran % 50.6 , Lymphocytes % 34.8, Monocytes % 12.6 H, Eosinophils % 1.7, Basophils % 0.3, Absolute Granulocytes 2.2, Absolute Lymphocytes 1.5, Absolute Monocytes 0.6, Absolute Eosinophils 0.1, Absolute Basophils 0 Diagnostic Data EKG Results nsr, pac's Other Results SERVICE DATE: 06/10/18-2199 EXAM TYPE: CAT - CT HEAD WO IV CONTRAST EXAMINATION: CT HEAD WITHOUT CONTRAST CLINICAL INFORMATION: Altered mental status. Assess for CVA. COMPARISON: 03/22/[address] and 03/24/2018 MRI TECHNIQUE: Contiguous axial imaging was performed from the skull base to vertex without intravenous administration of contrast. DLP: 614 mGy-cm FINDINGS: There is no evidence of acute intracranial hemorrhage or territorial infarction. No abnormal mass effect or midline shift is seen. Byrd to white matter differentiation is well preserved. No extra-axial fluid collections are identified. The ventricles are normal in size. Mild periventricular white matter changes are again seen suggesting chronic age-related small vessel ischemic change, similar to the prior study. Mild basal ganglia calcifications. The osseous structures and soft tissues are normal. The mastoid air cells and visualized portions of the paranasal sinuses are well aerated. IMPRESSION: Chronic appearing and age-related changes similar to the 03/22/2018 examination. No acute intracranial abnormality. Specifically no intracranial hemorrhage or obvious acute territorial infarction. SERVICE DATE: 06/10/18 EXAM TYPE: CAT - CT HEAD ANGIOGRAM; CT NECK ANGIOGRAM EXAMINATION: CT ANGIOGRAM NECK WITH CONTRAST CT ANGIOGRAM BRAIN WITH CONTRAST CLINICAL INFORMATION: Expressive aphasia. COMPARISON: Noncontrast head CT performed just earlier and brain MRI 03/24/2018. TECHNIQUE: Test bolus sequences followed by intravenous administration 95 mL of Optiray 320. Helical imaging was performed in the axial plane from the thoracic inlet to the skull vertex. Delayed postcontrast imaging of the head was also performed. The data was processed at the ultrasound technologist workstation for generation of MIP sequences. Angled MIPs and volume rendered reformatted images were also generated at an offline 3D workstation. Stenoses are assessed in accordance with NASCET criteria unless otherwise indicated. DLP: 1840 mGy-cm FINDINGS: Postcontrast head CT: There is no intracranial hemorrhage, large acute infarction, or mass lesion. There is mild scattered hypoattenuation in the bilateral cerebral white matter and central helene, which is nonspecific but likely reflects small vessel disease. The ventricles are normal in size and configuration without evidence of hydrocephalus. No abnormal enhancement is seen. The visualized paranasal sinuses and mastoid air cells are clear. Neck CTA: There is somewhat limited evaluation of the neck vessels due to contrast timing. The distal common carotid arteries are patent. Atheromatous changes are noted at both carotid bifurcations without associated stenosis of the proximal internal carotid arteries. There are postoperative changes at the left carotid bifurcation likely on the basis of prior endarterectomy. The cervical left internal carotid artery is smaller in caliber than the right which is likely a chronic finding. The vertebral arteries are patent. Head CTA: Atheromatous changes are present at both carotid siphons without significant stenosis. Left A1 segment is hypoplastic but patent. The ACAs appear normal. The MCAs appear normal. Atheromatous changes are present along both intradural vertebral arteries without significant stenosis. The basilar artery is patent. The pharmacist intern are patent. No aneurysm is seen. Non-vascular findings: Patchy areas of opacity and consolidation are seen in the right upper lobe. There is pleural-parenchymal thickening at both lung apices. There is grade 1 anterolisthesis of C3 on C4 and C4 on C5. There is chronic compression fracture of C5 and to a lesser extent C6. There is multilevel disc height loss with advanced degenerative endplate changes present at C5-C6 and C6-C7. No acute fracture is seen. No neck mass or suspicious adenopathy is seen. IMPRESSION: CT head: - No intracranial hemorrhage or large acute infarction. - Mild small vessel ischemic changes in the cerebral white matter and central helene CTA neck: - No hemodynamically significant stenosis in the major arteries of the neck. - Probable left-sided carotid endarterectomy changes. CTA head: - No large vessel occlusion or significant stenosis within the intracranial circulation. Additional findings: - Groundglass opacities and patchy consolidation in the right upper lobe likely on the basis of an infectious/inflammatory process. Assessment/Plan Assessment: In summary Ms. Carrera is a 77-year-old male with past medical history of macular degeneration (legally blind with both eyes), hypertension, insulin-dependent diabetes mellitus complicated with neuropathy, chronic back pain, late onset paranoid schizophrenia, recent history of stroke and recent carotid endarterectomy came in with chief complaint of aphasia along with facial paralysis on the afternoon of the day of presentation ( 3pm). Upon presentation to the emergency department, the facial asymmetry or weakness was not seen anymore however the aphasia was still present. The case was reviewed by ER doctor with the on-call neurologist Dr. Crawford, patient had 0 on NIH stroke scale therefore TPA was not indicated and she did not receive any TPA at the emergency department. Vitals at the emergency department temperature of 98.7, pulse of 91, respiration of 18, blood pressure of 180/82, she was saturating 99% on room air. Relevant labs white count of 4.4, H/H of 11.4/32.7, platelet of 339 Sodium of 123 (baseline sodium 135-138), potassium of 4.7, BUN/creatinine 8/0.5, glucose of 132. UA was negative. EKG showed normal sinus rhythm with some PACs. Alkaline phosphatase 132. CT head was negative. CTA head did not show a large vessel occlusion or significant stenosis within the intracranial circulation. CT and neck did not show any significant stenosis in the major arteries of the neck, probable left-sided carotid endarterectomy changes. Echocardiogram 03/24/2018 with normal global left ventricular cavity size, mild left atrial dilation on EF of 65%. We will admit the patient to telemetry floor for continuous cardiac monitoring. problem list with assessment and plan. Problem #1 TIA/stroke. Continue to monitor vitals, NIH stroke scale, she passed a bedside swallow evaluation, continue high-dose statin, continue aspirin and Plavix, neurology consult in a.m. CT head did not show any changes. Obtain MRI of the brain in a.m. As CTA was done recently, we will not repeated. Please check lipid panel in a.m. will hold off echo for now,as there was one done recently. Continue high-dose statin at home dosage. Patient did not receive TPA due to an NIH stroke scale of 0. Continue PT/OT. We will hold all the blood pressure medications for now, allow permissive hypertension and begin the blood pressure medication only if the blood pressure is greater than 220 systolic. #2 hyponatremia. Volume status sainz she appears to be euvolemic. Recent baseline sodium noted to be between 133-135. Check urine lites, serum osmolarity, urine osmolarity. Most likely could be secondary to SIADH, we will put her on fluid restriction 1200 mL along with salt tablets, continue to monitor BP, do not correct more than 8 mEq in 24 hours. We will also check TSH. We will also check a.m. cortisol. #3 history of hypertension. We will hold all antihypertensive medications for now. Allow permissive hypertension. #4 history of diabetes mellitus. She takes Lantus 12 units every afternoon. Low-dose sliding scale for mealtime. Fingersticks. Consistent carbohydrate diet. #5 diabetic neuropathy. Continue gabapentin 100 mg 3 times daily. #6. History of schizophrenia. Continue risperidone 10 mg at bedtime. She says she wants to be DNR/DNI,the code status is not very clear at this point , please confirm with grand daughter Florecita, will keep FC till then please confirm CMR in am. Pain pathway. DVT prophylaxis with Lovenox. Core Measures/Misc (06/23) Acute Coronary Syndrome ACS Diagnosis: No Congestive Heart Failure Congestive Heart Failure Diagnosis No Cerebrovascular Accident CVA/TIA Diagnosis: Yes NIH Stroke Scale: Total 1 Date Last Known Well: 06/10/18 Time Last Known Well: 2131 Symptom Start Date: 06/10/18 Symptom Start Time: 2132 tPA Risk/Benefit discussion I have discussed the risks, benefits, and alternatives of Alteplase treatment including: - If given promptly, can resolve or have major improvement in stroke symptoms. - Bleeding (hemorrhage) is the most common risk that can occur. - Bleeding may occur into the brain and cause~buttermaker continuous churn serious disability~ including - this is rare, affecting about 1% of patients. - Alternative treatments with proven benefit for patients with stroke include aspirin and care in a specialized unit where staff members pay careful attention to a variety of basic aspects of care. tPA given? No Swallow Evaluation Pass Current/Past Hx AFib/AFlutter No VTE (View Protocol) VTE Risk Factors No risk factors No Mechanical VTE Prophylaxis d/t Other No VTE Pharm Prophylaxis d/t Other Sepsis (View protocol) Sepsis Present: No If YES complete Sepsis Event Note If YES complete Sepsis Event Note Resident Review Statement Resident Statement: admitted by resident Jem Morris 06/11/18 0342: Assessment/Plan As Ranked By This Provider Problem List: 1. Cervical spondylosis 2. Cholecystitis 3. Chronic low back pain 4. Chronic osteoarthritis 5. Diabetes mellitus 6. FIBROMYALGIA 7. Hip pain 8. History of - depression 9. History of - hypertension 10. History of carotid endarterectomy 11. History of squamous cell carcinoma of skin 12. Total abdominal hysterectomy 13. Total replacement of hip 14. Back pain 15. Leg pain 16. Altered mental status 17. Syncopal episodes 18. Schizophrenia 19. Elevated troponin 20. Pneumonia 21. Bandemia 22. Chest pain 23. Complaints of total body pain 24. Noncompliance with medication regimen 25. Fall 26. Distal radius fracture, left 27. Low back strain 28. Neck strain 29. CVA (cerebral vascular accident) 30. Neurologic deficit due to acute ischemic cerebrovascular accident (CVA) 31. Carotid arterial disease 32. Allergic reaction 33. Hyponatremia Core Measures/Misc (06/23) Sepsis (View protocol) If YES complete Sepsis Event Note If YES complete Sepsis Event Note Attending MD Review Statement Attending Statement Attending MD Statement: examined this patient, discuss w/resident/PA/AVIAN KEEPER, agreed w/resident/PA/AVIAN KEEPER Attending Assessment/Plan: Addendum by . Patient was seen and examined at bedside today ( 06/11/18) at 3:30Am. Reviewed the history physical done by the resident. Reviewed the past medical family, family, social history. ROS: 10 point system reviewed and negative except as described above. 78 yo F with pmh of HTN, IDDM with peripheral neuropathy, macular degeneration ( legally blind), CHFpEF (65% per family), uterine cancer status post hysterectomy , chronic back pain, major depressive disorder is brought in for further left facial droop and slurred speech as noted by daughter. Alert awake oriented 3. Mild left facial droop noted on limited abduction of the left eye. Other cranial nerve examination is normal, normal power in upper and lower extremities bilaterally, has slightly limited power in left wrist due to wrist fracture, pain in the back with movement of the left lower extremity otherwise normal neuro examination the rest of the examination is normal. Agree with above exam by resident. Labs, chest x-ray, EKG reviewed CT of brain was reviewed Old MRI and echo reports were reviewed. A/p: -TIA versus stroke: Patient has slight left facial droop, intermittent word finding difficulty awake slurred speech. Decreased abduction of the left eye( this is probably old), CTA was negative. In the ER patient had a stroke alert, neuro was notified NHA stroke scale score was normal no TPA was given. Will get MRI brain to rule out stroke. Patient is on Plavix at home will continue continue with the statin. Permissive hypertension -hold blood pressure medications. Can get lipid profile in the morning. Had echo in the past and CTA neck now so no need for further testing. Neuro evaluation is requested. #Euvolemic hyponatremia: Sodium is 123. Patient has mild hyponatremia 134 and 133 in the past. Patient is not on any standing diuretics and other medications reviewed. Get TSH, a.m. cortisol. Also put her on fluid restriction to 1.2 L, start salt tablets 1 g 3 times daily. Get urine, serum osmolality, urine lytes. Target correction of sodium is 8 mEq in 24 hours. Check BMP in a.m. #History of prior stroke, status post left endarterectomy history of PPI in the past. #HTN, IDDM with peripheral neuropathy, last A1c was below 6.3 in March. Continue with the sliding scale insulin, home medications. macular degeneration (legally blind), CHFpEF , uterine cancer status post hysterectomy, chronic back pain, major depressive disorder. Reviewed with the resident. Agree with the rest of the plan as per resident's note. Dr.Ravinder Judy MD. Hospitalist. Pager: [phone], cell: [phone].
[2018-06-11 01:28] VITALS: BP 184/72
[2018-06-11 07:22] VITALS: BP 132/70
[2018-06-11 08:08] LABS: ABSOLUTE BASOPHIL COUNT 0 /CUMM (0.0-0.2); ABSOLUTE EOSINOPHIL COUNT 0 /CUMM (0.0-0.7); ABSOLUTE GRANULOCYTE CT 2.9 /CUMM (1.4-6.5); ABSOLUTE LYMPH COUNT 1.1 /CUMM (1.2-3.4); ABSOLUTE MONOCYTE COUNT 0.6 /CUMM (0.10-0.60); BASOPHIL % 0.7 % (0.0-2.0); EOSINOPHIL % 0.9 % (0-5); GRANULOCYTE % 61.7 % (42.2-75.2); MEAN CORPUSCULAR HGB CONC 34.4 G/DL (33.0-37.0); MEAN CORPUSCULAR VOLUME 90.3 FL (81.0-99.0); MEAN PLATELET VOLUME 7.5 FL (7.4-10.4); PLATELET COUNT 323 /CUMM (130-400); RBC DISTRIBUTION WIDTH 14.1 % (11.5-14.5); RED BLOOD CELL CT 3.54 /CUMM (4.20-5.40); WHITE BLOOD CELL COUNT 4.7 /CUMM (4.8-10.8)
--- NOTE | 2018-06-11 08:34 | PN- Student ---
Subjective Subjective: Mrs. Garg is a 78 y/o female with PMH of macular degeneration (left worse than right, but legally blind in both eyes), hypertension, IDDM complicated by peripheral neuropathy, chronic back pain, late onset paranoid schizophrenia, and recent CVA requiring TPA and left-sided carotid endarterectomy three months ago who presented to the [facility] ED yesterday for confusion and expressive aphasia. The patient reports that she felt confused throughout the day yesterday and had trouble coming up with words. She called her granddaughter, who is a nurse, and was also unable to find proper words while on the phone. Her granddaughter came to see the patient and noticed that she was not acting like her usual self. Reportedly, the patient's granddaughter also felt that the patient had some left -sided facial droop and so brought her to the ED due to concerns that she could have been having another stroke. Upon arrival the patient was immediately evaluated by the EM physician in triage and CT scans were obtained. The patient did not display any evidence of facial asymmetry. CT/CTA of head and neck were negative evidence of acute ischemic or hemorrhagic stroke. After consultation with neurology, it was determined that TPA was not necessary because NIH stroke scale was 0. She was admitted to the telemetry unit for continous monitoring. MRI and neurology consult are pending. It was also found that the patient was hyponatremic with a sodium level of 123; the patient states that recently she has been drinking a lot of water at home ( approximately 3 large jugs per day). Upon examination this morning, the patient reports that she no longer feels confused but endorses persistent expressive aphasia, stating that she "just can' t find the words." Per the patient, she had no difficulty with word finding after she had recovered from her previous CVA and before yesterday afternoon. ROS: Constitutional: No fevers or chills CV: No chest pain or palpitations Pulmonary: No shortness of breath or cough Abdomen: No n/v/d, no abdominal pain Neuro: No confusion, no headaches, no dizziness, no paresthesias Medical history: macular degeneration (left worse than right, but legally blind in both eyes), hypertension, IDDM complicated by peripheral neuropathy, chronic back pain with cervical sponylosis, late onset paranoid schizophrenia, depression, squamous cell carcinoma of skin, recent CVA requiring TPA and left- sided carotid endarterectomy three months ago, multiple falls at home, recent fracture of left wrist managed nonoperatively, HFpEF (per family) last echo on demonstrated EF 65% with mild left atrial dilation, uterine cancer at 29 years old (per patient) Surgical history: laparscopic cholecystectomy, mutliple orthopedic surgeries including bilateral hip replacements and surgery for femur fracture, hysterectomy Social history: patient lives at home alone and is able to perform ADLs without assitance. She uses a cane to get around outside and does not need assistance with ambulation at home. She has a remote history of cigarette smoking (smoked two packs per day in her 20s and 30s) but has not smoked in many years. She also used to drink a significant amount of wine in her 20s and 30s but no longer drinks any alcohol. The patient does not use any illicit drugs. Code status: DNR/DNI per patient and granddaughter (healthcare POA) Objective Objective: Vitals: temperature 98.3F, pulse 70, blood pressure 132/70, oxygen saturation 97 % General: well-developed well-nourished female laying in bed in no acute distress , alert and oriented x 4 Cardiac: RRR, no murmurs, rubs, or gallops, radial pulses 2+ bilaterally HEENT: normal oropharynx without erythema or exudate, mucous membranes moist, pupils 4 mm bilaterally and reactive to light and accomodation, left less than right likely chronic due to longstanding macular degeneration, EOMI Pulmonary: CTA bilaterally, no wheezes, rales, or rhonchi Abdomen: soft and nontender, nondistended MSK: swelling of MCP joints due to osteoarthritis, left wrist in splint and with decreased mobility Skin: normal skin turgor, chronic age-related skin changes, skin is warm and well-perfused, no rashes Neuro: patient is awake and alert, oriented x 4, decreased visual acuity and perception of visual mitchell at baseline, EOMI, CN 4-12 intact, sensation of upper and lower extremities intact, strength of upper and lower extremities 5/5 Results Results: Laboratory Tests 06/11/18 0629: Triglycerides Pending, Cholesterol Pending, LDL Cholesterol, Calc Pending, HDL Cholesterol Pending, Cholesterol/HDL Ratio Pending 06/11/18 0629: Sodium Pending, Potassium Pending, Chloride Pending, Carbon Dioxide Pending, Anion Gap Pending, BUN Pending, Creatinine Pending, BUN/Creatinine Ratio Pending , Cortisol AM Sample Pending, CBC w Diff NO MAN DIFF REQ, RBC 3.54 L, MCV 90.3, MCH 31.0, MCHC 34.4, RDW 14.1, MPV 7.5, Gran % 61.7, Lymphocytes % 23.9, Monocytes % 12.8 H, Eosinophils % 0.9, Basophils % 0.7, Absolute Granulocytes 2.9, Absolute Lymphocytes 1.1 L, Absolute Monocytes 0.6, Absolute Eosinophils 0 , Absolute Basophils 0 06/10/186: Urine Color STRAW, Urine Clarity CLEAR, Urine pH 7.5, Ur Specific [place] 1.010, Urine Protein NEG, Urine Ketones NEG, Urine Nitrite NEG, Urine Bilirubin NEG, Urine Urobilinogen 0.2, Ur Leukocyte Esterase NEG, Ur Microscopic EXAM NOT REQUIRED, Urine Hemoglobin NEG, Urine Glucose NEG 06/10/182255: Urine Osmolality 136 L, Ur Random Creatinine 8.2, Ur Random Sodium 25 L, Ur Random Potassium 20.6, Fraction Sodium Excret 1.2 H 06/10/181: Anion Gap 11, Estimated GFR > 60, BUN/Creatinine Ratio 16.0, Glucose 132 H, Serum Osmolality 268 L, Calcium 9.0, Total Bilirubin 0.5, AST 27, ALT 23, Alkaline Phosphatase 103, Total Protein 6.9, Albumin 3.6, Globulin 3.3, Albumin/ Globulin Ratio 1.1, Free T4 1.00, Total T3 1.21, TSH &T3 &Free T4 Intrp 5.060 H , CBC w Diff NO MAN DIFF REQ, RBC 3.62 L, MCV 90.2, MCH 31.4 H, MCHC 34.8, RDW 13.9, MPV 7.2 L, Gran % 50.6, Lymphocytes % 34.8, Monocytes % 12.6 H, Eosinophils % 1.7, Basophils % 0.3, Absolute Granulocytes 2.2, Absolute Lymphocytes 1.5, Absolute Monocytes 0.6, Absolute Eosinophils 0.1, Absolute Basophils 0 Assessment/Plan Assessment: Mrs. Garg is a 78 y/o female with PMH of macular degeneration (left worse than right, but legally blind in both eyes), hypertension, IDDM complicated by peripheral neuropathy, chronic back pain, late onset paranoid schizophrenia, and recent CVA requiring TPA and left-sided carotid endarterectomy three months ago who presented to the [facility] ED yesterday for confusion and expressive aphasia in the setting of negative imaging studies and an NIH stroke score of 0. Plan: Problem List #Expressive aphasia: CT head, CTA head, and CTA neck were negative for acute findings. MRI of the head is pending at this time, and patient will be evaluated by neurology this am. Repeat NIH score is 0. Patient may continue with her high dose statin and anti-platelet medications. Repeat NIH stroke scale regularly and monitor vitals closely. #Hyponatremia: patient's sodium was 123 upon presentation to the ED and urine osmolality was 126. Patient appears to be euvolemic. It is possible that this is due to her excessive water intake over the past few days vs. SIADH vs. hypothyroidism (TSH was elevated at 5.060) vs. secondary adrenal insufficiency ( am cortisol is pending). Restrict fluids to 1200 mL per day. #Schizophrenia: continue with bedtime risperidone 2 mg. #DM: continue with sliding scale glucose for mealtime and lantus. Fingersticks before meals. Continue with gabapentin for neuropathy. #HTN: hold medications unless systolic blood pressure exceeds 220 for permissive hypertension #DVT prophylaxis: enoxaparin 40 mg SC #Code status: DNR/DNI #Code status: discuss code status with patient's granddaughter. She will be considered full code until the granddaughter arrives.
--- NOTE | 2018-06-11 12:02 | MRI REPORT ---
EXAMINATION: MR BRAIN WITHOUT CONTRAST CLINICAL INFORMATION: Aphasia and facial paresis. Assess for stroke. COMPARISON: CT scan of the head 06/10/2018. MRI scan of the brain 03/24/2018. TECHNIQUE: MRI of the brain without contrast was obtained using routine sequences. FINDINGS: No diffusion abnormalities are identified to suggest an acute or subacute infarct. No mass effect or midline shift is seen. There is mild commensurate prominence of the ventricles and sulci consistent with mild diffuse volume loss. There are scattered areas of increased T2 and FLAIR signal in the periventricular and subcortical white matter, as well as within the helene consistent with chronic microvascular ischemic changes. No extra-axial fluid collections are seen. The brainstem and cerebellum are normal. No pathologic magnetic susceptibility artifact is identified on the gradient refocused acquisition. The craniovertebral junction, marrow signal, and midline structures are normal. There have been bilateral lens extractions. The major intracranial flow-voids at the level of the [place] of [place] are preserved. The dural venous sinus flow-voids are maintained. There is trace fluid at the left mastoid tip, unchanged. There is mild mucoperiosteal thickening in the left sphenoid sinus. IMPRESSION: 1. There are no acute bleeds or infarcts. No masses are demonstrated. 2. There are chronic microvascular ischemic changes. There is diffuse volume loss.
--- NOTE | 2018-06-11 12:27 | PN- Att Addend ---
Attending Addendum Attending Brief Note 78F PMH macular degeneration, hypertension, IDDM with diabetic neuropathy, chronic back pain, late onset paranoid schizophrenia, recent history of stroke and recent carotid endarterectomy admitted overnight with complaints of word finding difficulties, left facial weakness seen at home by daughter but resolved by the time patient came to the ER, with concern of stroke vs TIA. This morning patient is still having mild word finding difficulties, but is articulate and coherent. No facial droop is noted. Remaining neurological exam is normal. Patient was also incidentally found to have sodium 123 with workup revealing likely decreased solute intake or increase free water intake as etiology, with rapid improvement to 131 after starting salt tabs and fluid restriction. 1. TIA 2. Hyponatremia Plan - Continue on telemetry - No more salt tabs - Remove fluid restriction - Recheck sodium in 6 hours - MRI head - Neurology consult - Continue ASA, Plavix, statin - Speech therapy consult - Continue home medications - DVT PPx
--- NOTE | 2018-06-11 13:21 | Cons- Neurology ---
General Information and HPI Consulting Request Date of Consult: 06/11/18 Requested By: Jem Morris MD History of Present Illness: 78-year-old female with history of hypertension, diabetes, prior left carotid endarterectomy, late onset schizophrenia and recent TPA administration for presumed stroke in evolution however subsequent imaging without evidence of recent or remote stroke. She is maintained both on aspirin and Plavix. Yesterday evening, when saying her evening prayers, felt as if she could not articulate or say the words or names that she desired. She then became concerned, called her granddaughter and was taken to [facility]. A stroke alert was called however the ER doctor reported an NIH stroke scale of 0 and the medication was obviously not administered. There has been no recent fever or trauma. She was, however, recently advised to drink a lot of water and her serum sodium on admission was 123. Allergies/Medications Allergies: Coded Allergies: No Known Allergies (03/21/18) Home Med List: Aspirin (Ecotrin*) 81 MG TABLET.DR 1 TAB PO DAILY HEART/BLOOD (Reported) Atenolol 25 MG TABLET 1 TAB PO DAILY BP (Reported) Atorvastatin Calcium 80 MG TABLET 1 TAB PO 1700 STROKE Atropine Sulfate 1 % DROPS 1 DROP OS QW LEFT EYE (Reported) Cholecalciferol (Vitamin D3) 1,000 UNIT TABLET 1 TAB PO DAILY SUPPLEMENT ( Reported) Clopidogrel Bisulfate (Plavix) 75 MG TABLET 1 TAB PO DAILY STROKE Clotrimazole (Antifungal) 1 % CREAM..G. 1 BLANQUITA TOP DAILY BOTH FEET (Reported) Cyanocobalamin (Vitamin B-12) (B-12 Dots) 500 MCG TABLET 1 TAB PO DAILY SUPPLEMENT (Reported) Furosemide 20 MG TABLET 1 TAB PO DAILY DIURETIC (Reported) Gabapentin 100 MG CAPSULE 1 CAP PO TID NERVE PAIN (Reported) Insulin Aspart (Novolog) 100 UNIT/ML VIAL DM (Reported) BLOOS SUGAR SS <80 NONE, DRINK JUCIE 80-150 NONE 151-200 1 UNIT 201-250 2 UNITS 251-300 3 UNITS 301-350 4 UNITS 351-400 6 UNITS >400 8 UNITS CALL Insulin Glargine,Hum.rec.anlog (Lantus Solostar) 100 UNIT/ML (3 ML) INSULN.PEN 12 UNIT SC QPM DM (Reported) Mirtazapine 15 MG TABLET 1 TAB PO QHS PRN INSOMNIA (Reported) Multivitamin-Min/Iron/FA/Vit K (Multi-Day Plus Minerals Tablet) 18 MG IRON-400 MCG-25 MCG TABLET 1 TAB PO DAILY SUPPLEMENT (Reported) [place]-3 Fatty Acids (Fish Oil Concentrate) 1,000 MG CAPSULE 1 SGL PO DAILY SUPPLEMENT (Reported) Prednisolone Acetate (Omnipred) 1 % DROPS.SUSP 1 GTT OU DAILY BOTH EYES ( Reported) Risperidone 2 MG TABLET 1 TAB PO QHS SCHIZOPHRENIA (Reported) Tylenol With Codeine (Tylenol With Codeine #3 Tablet) 300 MG-30 MG TABLET 1 TAB PO BID PRN PAIN (Reported) Vit A/Vit C/Vit E/Zinc/Copper (Preservision Areds Softgel) 14,320-226 CAPSULE 2 SGL PO DAILY SUPPLEMENT (Reported) Review of Systems Review of Systems: Notable for anxiety, left wrist pain, recent fall, impaired vision and confusion or word finding difficulties. 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 No other family history of epilepsy). Psychosocial History Where Do You Live? Home Who Do You Live With? self Services at Home: None Primary Language: Pashto Smoking Status: Former Smoker Power of Shoe Stamper/HCP? yes Name of POA/HCP: Padma Workman Functional Ability ADLs Independent: dressing, eating, toileting, bathing. Ambulation: cane IADLs Independent: food prep, telephone, medication admin. Needs Assist: shopping, housework, finances, transportation. ECHO Results (as available) Date of last Echo 03/24/18 Exam & Diagnostic Data Vital Signs and I&O Vital Signs Date Time Temp Pulse Resp B/P B/P Pulse O2 O2 Flow FiO2 Mean Ox Delivery Rate 06/11 0722 98.3 70 18 132/70 97 Room Air 06/11 0128 98.1 71 18 184/72 99 Room Air 06/11 0015 98.7 73 18 181/77 99 Room Air 06/10 2308 98.4 91 18 180/82 100 Room Air 06/10 2259 100 06/10 2158 97.5 75 17 181/77 98 Room Air Intake & Output 06/11 1600 06/11 0800 09 0000 Intake Total 240 400 Output Total 250 150 800 Balance -10 250 -800 Intake, IV 300 Intake, Oral 240 100 Number 1 Bowel Movements Output, Urine 250 150 800 Patient 159 lb 130 lb Weight Weight Reported by Patient Standing Scale Measurement Method Pleasant elderly female, fully awake, alert and in no acute distress. Head was normocephalic and atraumatic. A left carotid endarterectomy scar was evident. Speech was fluent. There was no anomia. Repetition was intact. She was able to follow three-step commands without difficulty. Pupils were equal. Extraocular movements were full. The face was symmetric. Hearing was grossly normal. Tongue was midline. Motor examination showed no drift to the upper extremities. There was no gross focal or lateralizing weakness. Deep tendon reflexes were symmetric. Plantar responses were flexor. There was no ataxia on finger to nose testing. Joint position sense was intact. The gait was untested. CAT scan of the brain was unremarkable and CTA showed no significant stenoses. Assessment/Plan Assessment: Debi presents with transient confusion versus aphasia with word finding difficulty. She is currently back to baseline. Her CT and CTA were essentially benign. Differential diagnosis would include TIA, effects of hyponatremia, medication reaction, hypoglycemia or an anxiety reaction. Recommendations: The patient has just undergone an MRI which we will review. Her serum sodium should be gently corrected. She may continue on dual antiplatelet therapy for the time being with aspirin and Plavix. She may be out of bed with observation. I do not anticipate a prolonged hospital stay. Please feel free to call with any further questions. Consult Acknowledgment - Thank you for your consult request.
--- NOTE | 2018-06-11 13:50 | Discharge Summary ---
Visit Information Visit Dates Admission Date: 06/10/18 Discharge Date: 06/12/18 Hospital Course Course Attending Physician: Jem Morris MD Primary Care Physician: Sigifredo Connors MD Hospital Course: Mrs Carrera is a 77-year-old female with past medical history of macular degeneration (legally blind with both eyes), hypertension, insulin-dependent diabetes mellitus complicated with neuropathy, chronic back pain, late onset paranoid schizophrenia, recent history of stroke came in with chief complaint of aphasia. Apparently the patient was doing all right when around 3:30 PM on the day of presentation, she had difficulty finding words. She noticed that she wanted to say something however she would not find words to describe express it, she continued to have the symptoms and she was scared that she would have had another stroke and therefore out of fear did not present to hospital immediately. She continued to have word finding difficulties and expression problem for another few hours when around 7 PM she called her granddaughter Florecita who found her to be also not in her usual state and confused and saw some left-sided facial weakness and therefore brought her to [facility] emergency department by ambulance. Of note patient was recently admitted to [facility] 3 months ago with suspected symptoms of stroke she was within the stroke window and received TPA. Upon presentation to emergency department the ER doctor did not see any facial asymmetry or weakness, a stroke alert was called and findings were reviewed with on-call neurologist Dr. box, as the patient was 0 on NIH stroke scale, TPA was not indicated and she did not receive any TPA in the emergency department. She denied any chest pain, nausea, vomiting, diarrhea and abnormal seizure-like activity, loss of bowel or bladder control, any current weakness however she continued to have word finding difficulties even during history taking. Assessment and plan 1. Expressive aphasia-most likely it was a residual of her previous stroke 2-1/ 2 months ago. CAT scan and MRI-negative. No neurological deficit. Cleared by neurology. Patient also has some competent of decreased memory. Patient will follow up with cafeteria director for memory problem. Continue aspirin, atorvastatin , Plavix. 2. Euvolemic hyponatremia-can be secondary due to primary polydipsia given that the patient was drinking more than usual water for the past 4-5 days. Patient sodium improved from 123-135 today. Patient's confusion can be secondary due to hyponatremia. 3. Diabetes-NovoLog sliding scale insulin. Today fasting 77. Patient will take her usual regular insulin at home. 4. Hypertension-patient is on atenolol 25 and Lasix 20 daily at home. Her blood pressure today is 150/60. Patient can restart her atenolol on Lasix. Advised to follow-up with PCP/neurology/cafeteria director as outpatient. Plan is for discharge today to home. Patient cleared by physical therapy. Allergies: Coded Allergies: No Known Allergies (03/21/18) Significant Procedures: Head MRI 1. There are no acute bleeds or infarcts. No masses are demonstrated. 2. There are chronic microvascular ischemic changes. There is diffuse volume loss. CTA CT head: - No intracranial hemorrhage or large acute infarction. - Mild small vessel ischemic changes in the cerebral white matter and central helene CTA neck: - No hemodynamically significant stenosis in the major arteries of the neck. - Probable left-sided carotid endarterectomy changes. CTA head: - No large vessel occlusion or significant stenosis within the intracranial circulation. Additional findings: - Groundglass opacities and patchy consolidation in the right upper lobe likely on the basis of an infectious/inflammatory process. Disposition Summary Disposition Principal Diagnosis: Expressive aphasia Additional Diagnosis: Hyponatremia Discharge Disposition: home or self care Discharge Instructions General Discharge Information Code Status: Do Not Resucitate/Intubat Patient's Diet: Diabetic diet Patient's Activity: As tolerated Follow-Up Instructions/Appts: Please follow-up with your primary care/neurologist/cafeteria director as outpatient Medications at Discharge Discharge Medications: Continue taking these medications: Vit A/Vit C/Vit E/Zinc/Copper (Preservision Areds Softgel) 14,320-226 CAPSULE 2 SGL ORAL DAILY Comments: NOT GIVEN IN HOSPITAL [place]-3 Fatty Acids (Fish Oil Concentrate) 1,000 MG CAPSULE 1 SGL ORAL DAILY Comments: NOT GIVEN IN HOSPITAL Prednisolone Acetate (Omnipred) 1 % DROPS.SUSP 1 Drop Both Eyes DAILY Comments: NOT GIVEN IN HOSPITAL Atropine Sulfate (Atropine Sulfate) 1 % DROPS 1 DROP Left Eye Once a Week Comments: NOT GIVEN IN HOSPITAL Atenolol (Atenolol) 25 MG TABLET 1 Tablet ORAL DAILY Comments: Last Taken: 06/12/18 Time: 11:30 AM Furosemide (Furosemide) 20 MG TABLET 1 Tablet ORAL DAILY Comments: NOT GIVEN IN HOSPITAL Gabapentin (Gabapentin) 100 MG CAPSULE 1 Capsule ORAL THREE TIMES DAILY Comments: Last Taken: 06/12/18 Time: 8:30 AM Tylenol With Codeine (Tylenol With Codeine #3 Tablet) 300 MG-30 MG TABLET 1 Tablet ORAL TWICE DAILY as needed for PAIN Comments: Last Taken: 06/12/18 Time: 8:30 AM Risperidone (Risperidone) 2 MG TABLET 1 Tablet ORAL TAKE AT BEDTIME Qty = 30 Comments: Last Taken: 06/11/18 Time: 9:30 PM Mirtazapine (Mirtazapine) 15 MG TABLET 1 Tablet ORAL TAKE AT BEDTIME as needed for INSOMNIA Qty = 30 Comments: Last Taken: 06/11/18 Time: 9:30 PM Insulin Glargine,Hum.rec.anlog (Lantus Solostar) 100 UNIT/ML (3 ML) INSULN.PEN 12 Unit SC Every night Qty = 9 Comments: Last Taken: 06/11/18 Time: 9:30 PM Insulin Aspart (Novolog) 100 UNIT/ML VIAL SC 3 TIMES DAILY BEFORE MEALS Instructions: BLOOS SUGAR SS <80 NONE, DRINK JUCIE 80-150 NONE 151-200 1 UNIT 201-250 2 UNITS 251-300 3 UNITS 301-350 4 UNITS 351-400 6 UNITS >400 8 UNITS CALL Comments: Last Taken: 06/11/18 Time: 6:00 PM Clopidogrel Bisulfate (Plavix) 75 MG TABLET 1 Tablet ORAL DAILY Qty = 30 Comments: Last Taken: 06/12/18 Time: 8:30 AM Atorvastatin Calcium (Atorvastatin Calcium) 80 MG TABLET 1 Tablet ORAL 5 PM Qty = 30 Comments: NOT GIVEN IN HOSPITAL Cyanocobalamin (Vitamin B-12) (B-12 Dots) 500 MCG TABLET 1 Tablet ORAL DAILY Comments: NOT GIVEN IN HOSPITAL Cholecalciferol (Vitamin D3) 1,000 UNIT TABLET 1 Tablet ORAL DAILY Comments: NOT GIVEN IN HOSPITAL Aspirin (Ecotrin*) 81 MG TABLET.DR 1 Tablet ORAL DAILY Comments: Last Taken: 06/12/18 Time: 8:30 AM Clotrimazole (Antifungal) 1 % CREAM..G. 1 Application On the skin DAILY Comments: NOT GIVEN IN HOSPITAL Multivitamin-Min/Iron/FA/Vit K (Multi-Day Plus Minerals Tablet) 18 MG IRON-400 MCG-25 MCG TABLET 1 Tablet ORAL DAILY Comments: NOT GIVEN IN HOSPITAL Copies To: Darrian HEBERT,Jarocho Bain; Dory HEBERT,Sigifredo Gonzalez; Elo HEBERT,Eugenie
[2018-06-11 14:09] VITALS: BP 136/64
[2018-06-11 21:38] VITALS: BP 112/54
[2018-06-12 06:19] VITALS: BP 150/56
--- NOTE | 2018-06-12 07:14 | PN- Housestaff ---
Price HEBERT,Che 06/12/18 0713: Subjective Follow-up For: APHASIA Tele-Events Since Last Visit: Normal sinus rhythm Subjective: Patient seen and examined at bedside no overnight events. Patient slept well. Patient is eager to go home today. She denies confusion word finding difficulty , nausea, vomiting, dizziness Review of Systems Constitutional: Reports: no symptoms. Objective Last 24 Hrs of Vital Signs/I&O Vital Signs Date Time Temp Pulse Resp B/P B/P Pulse O2 O2 Flow FiO2 Mean Ox Delivery Rate 06/12 619 98.2 92 18 150/56 97 Room Air 06/11 2138 98.7 73 18 112/54 98 Room Air 06/11 1409 97.9 79 18 136/64 99 Room Air Intake & Output 06/12 1600 06/12 0800 06/12 0000 Intake Total 100 70 Output Total 400 400 Balance -300 -330 Intake, Oral 100 70 Output, Urine 400 400 Patient 130 lb Weight Physical Exam General Appearance: Alert, Oriented X3, Cooperative, No Acute Distress Cardiovascular: Regular Rate, Normal S1, Normal S2, No Murmurs Lungs: Clear to Auscultation Abdomen: Soft, No Tenderness, No Hepatospenomegaly Neurological: Normal Speech, Strength at 5/5 X4 Ext, Normal Tone, Sensation Intact, Cranial Nerves 3-12 NL Extremities: No Edema Current Medications: Current Medications Sig/Bertha Start time Last Medication Dose Route Stop Time Status Admin Acetaminophen 650 MG Q6P PRN 06/11 0145 AC 06/11 PO 1032 Acetaminophen 1,000 MG Q6P PRN 06/11 0145 AC IV Acetaminophen/ 1 TAB Q4P PRN 06/11 1515 AC 06/12 Codeine Phosphate PO 0823 Aspirin Buffered 81 MG DAILY 06/11 900 AC 06/12 PO 0823 Aspirin Buffered 81 MG DAILY 06/11 09 DC PO Atenolol 25 MG DAILY 06/12 09 AC PO Atorvastatin Calcium 80 MG 1700 06/11 1700 AC PO Clopidogrel Bisulfate 75 MG DAILY 06/11 900 AC 06/12 PO 0823 Enoxaparin Sodium 40 MG DAILY 06/11 900 AC 06/12 SC 0823 Gabapentin 100 MG TID 06/11 900 AC 06/12 PO 0823 Insulin Aspart 0 TIDAC 06/11 08 AC 06/11 SC 1751 Insulin Detemir 12 UNITS QPM 06/11 2100 AC 06/11 SC 6 Mirtazapine 15 MG QPM PRN 06/11 0415 AC 06/11 PO 213 Oxycodone/ 1 TAB Q6P PRN 06/11 0145 AC Acetaminophen PO Risperidone 2 MG AT BEDTIME 06/11 2100 AC 06/11 PO 213 Sodium Chloride 1,000 MG BID 06/11 0900 DC PO Last 24 Hrs of Lab/Cipriano Results Last 24 Hrs of Labs/Mics: Laboratory Tests 06/12/18 0630: Anion Gap 4 L, Estimated GFR > 60, BUN/Creatinine Ratio 20.0 06/11/18 1642: Anion Gap 9, Estimated GFR > 60, BUN/Creatinine Ratio 13.8 Assessment/Plan Assessment: Mrs Carrera is a 77-year-old female with past medical history of macular degeneration (legally blind with both eyes), hypertension, insulin-dependent diabetes mellitus complicated with neuropathy, chronic back pain, late onset paranoid schizophrenia, recent history of stroke came in with chief complaint of aphasia. Assessment and plan 1. Expressive aphasia-most likely it was a residual of her previous stroke 2-1/ 2 months ago. CAT scan and MRI-negative. Cleared by neurology. Patient also has some complaint of dementia. Patient will follow up with riveter portable machine as outpatient. Continue aspirin, atorvastatin, Plavix. 2. Euvolemic hyponatremia-can be secondary due to primary polydipsia given that the patient was drinking more than usual water for the past 4-5 days. Patient sodium improved from 123-135 today. Patient's confusion can be secondary due to hyponatremia. 3. Diabetes-NovoLog sliding scale insulin. Today fasting 77. Patient will take her usual regular insulin at home. 4. Hypertension-patient is on atenolol 25 and Lasix 20 daily at home. Her blood pressure today is 150/60. Patient can restart her atenolol on Lasix. Advised to follow-up with PCP/neurology/accounting manager as outpatient. Plan is for discharge today to home. Patient cleared by physical therapy. Code-DNR/DNI Problem List: 1. Hyponatremia Pain Ratin Pain Location: none Pain Goal: Remain pain free Pain Plan: tylenol Tomorrow's Labs & Rationales: none Sarah Celestin MD 06/12/18 1049: Attending MD Review Statement Attending Statement Attending MD Statement: examined this patient, discuss w/resident/PA/CUTTER OPERATOR BRICK, agreed w/resident/PA/CUTTER OPERATOR BRICK, reviewed EMR data (avail) Attending Assessment/Plan: 78F PMH macular degeneration, hypertension, IDDM with diabetic neuropathy, chronic back pain, late onset paranoid schizophrenia, recent history of stroke and recent carotid endarterectomy admitted overnight with complaints of word finding difficulties, left facial weakness seen at home by daughter but resolved by the time patient came to the ER, with concern of stroke vs TIA. Much better today. Word finding difficulties have resolved. Neuro exam normal. Patient is awake, alert, coherent, with no complaints. Sodium 135 today. 1. Acute hyponatremia 2. Metabolic encephalopathy Plan - Stable for discharge - MRI head negative - Outpatient neurology - Continue ASA, Plavix, statin - Continue home medications
--- NOTE | 2018-06-12 08:13 | PN- Student ---
Subjective Subjective: Patient seen and evaluated this morning. She reports that she slept well and has not felt confused. She states that she is no longer having word finding difficulties. The patient has been able to get up and ambulate to the the restroom. She feels well and would like to go home. She denies fevers, chills, nausea, vomiting, chest pain, shortness of breath, headaches, or dizziness. Objective Objective: Vitals: temperature - 98.2F, pulse - 92, respiratory rate - 18, blood pressure - 150/56, oxygen saturation - 97% on RA General: pleasant elderly female lying in bed in no acute distress HEENT: head normocephalic and atraumatic, PERRLA, EOMI CV: RRR, no murmurs, rubs, or gallops appreciated Pulmonary: CTA bilaterally, no wheezes, rhonchi, or rales Extremities: strength 5/5 upper and lower extremities Neuro: patient alert and oriented x 4, no evidence of facial droop, patient is slow to respond but reports that expressive aphasia has resolved Results Results: Laboratory Tests 06/12/18 0630: Sodium Pending, Potassium Pending, Chloride Pending, Carbon Dioxide Pending, Anion Gap Pending, BUN Pending, Creatinine Pending, BUN/Creatinine Ratio Pending 06/11/18 1642: Anion Gap 9, Estimated GFR > 60, BUN/Creatinine Ratio 13.8 06/11/18 0629: Triglycerides 46, Cholesterol 129, LDL Cholesterol, Calc 54 L, HDL Cholesterol 66 H, Cholesterol/HDL Ratio 2 06/11/18 0629: Anion Gap 7, Estimated GFR > 60, BUN/Creatinine Ratio 16.0, Cortisol AM Sample 12.2, CBC w Diff NO MAN DIFF REQ, RBC 3.54 L, MCV 90.3, MCH 31.0, MCHC 34.4, RDW 14.1, MPV 7.5, Gran % 61.7, Lymphocytes % 23.9, Monocytes % 12.8 H, Eosinophils % 0.9, Basophils % 0.7, Absolute Granulocytes 2.9, Absolute Lymphocytes 1.1 L, Absolute Monocytes 0.6, Absolute Eosinophils 0, Absolute Basophils 0 06/11/18 0600: Urine Total Volume Pending, Ur Sodium 24 Hour Pending, Ur Potassium 24 Hour Pending 06/10/18 2256: Urine Color STRAW, Urine Clarity CLEAR, Urine pH 7.5, Ur Specific Mineral 1.010, Urine Protein NEG, Urine Ketones NEG, Urine Nitrite NEG, Urine Bilirubin NEG, Urine Urobilinogen 0.2, Ur Leukocyte Esterase NEG, Ur Microscopic EXAM NOT REQUIRED, Urine Hemoglobin NEG, Urine Glucose NEG 06/10/18 2256: Urine Osmolality 136 L, Ur Random Creatinine 8.2, Ur Random Sodium 25 L, Ur Random Potassium 20.6, Fraction Sodium Excret 1.2 H 06/10/18 2221: Anion Gap 11, Estimated GFR > 60, BUN/Creatinine Ratio 16.0, Glucose 132 H, Serum Osmolality 268 L, Calcium 9.0, Total Bilirubin 0.5, AST 27, ALT 23, Alkaline Phosphatase 103, Total Protein 6.9, Albumin 3.6, Globulin 3.3, Albumin/ Globulin Ratio 1.1, Free T4 1.00, Total T3 1.21, TSH &T3 &Free T4 Intrp 5.060 H , CBC w Diff NO MAN DIFF REQ, RBC 3.62 L, MCV 90.2, MCH 31.4 H, MCHC 34.8, RDW 13.9, MPV 7.2 L, Gran % 50.6, Lymphocytes % 34.8, Monocytes % 12.6 H, Eosinophils % 1.7, Basophils % 0.3, Absolute Granulocytes 2.2, Absolute Lymphocytes 1.5, Absolute Monocytes 0.6, Absolute Eosinophils 0.1, Absolute Basophils 0 Assessment/Plan Assessment: Mrs. Garg is a 78 y/o female with PMH of macular degeneration (left worse than right, but legally blind in both eyes), hypertension, IDDM complicated by peripheral neuropathy, chronic back pain, late onset paranoid schizophrenia, and recent CVA requiring TPA and left-sided carotid endarterectomy three months ago who presented to the [place] ED yesterday for confusion and expressive aphasia in the setting of negative imaging studies and an NIH stroke score of 0. The patient also was found to have hyponatremia with a serum sodium of 123 upon admission. Plan: Problem List #Expressive aphasia: MRI of the head performed on 06/11/18 was negative for evidence of acute ischemic or hemorrhagic stroke. Aphasia likely related to previous CVA vs. electrolyte abnormalities from this admission rather than due to an ischemic process. The patient believes that her aphasia has resolved and no longer reports and confusion or word finding difficulties. She was evaluated by Dr. Colmenares, neurology, yesterday who did not recommend any further intervention. PT cleared the patient for home self care and recommended speech therapy assessment. Speech therapy will evaluate the patient today. #Hyponatremia: serum sodium improved to 133 yesterday, and repeat BMP is pending at this time. Hyponatremia likely due to the patient's incrased water intake over the past few days, and not likely due to a different etiology. TSH was not so elevated as to cause electrolyte abnormalties, cortisol level was within normal limits, and lipids are well controlled with high dose statin. Patient has been counseled about avoiding excessive water intake at home, and she and her family demonstrate understanding. #Subclinical hypothyroidism: TSH was 5.060, which is appropriate for the patient 's age. No intervention needed as this time. #Schizophrenia: continue with bedtime risperidone and outpatient follow up. #DM: patient should continue her home insulin regimen. #HTN: as there is no evidence of ischemic or hemorrhagic CVA, patient can resume her normal blood pressure medications. #DVT prophylaxis: the patient should continue with her dual antiplatelet therapy at home and enoxaparin can be discontinued for discharge home. #Code status: DNR/DNI per patient and her family #Disposition: patient is stable for discharge home and outpatient follow up after she is evaluated by speech therapy this morning. Discussed referral to a piece goods clerk for continued care; however, the patient does not wish to establish care with a new physician. She will be provided with the information for follow up if she changes her mind.
--- NOTE | 2018-06-12 08:24 | Patient Discharge Instructions ---
Discharge Instructions General Discharge Information You were seen/treated for: A fascia Watch for these problems: In case of fall, confusion, weakness, dizziness please go to the nearest emergency room Special Instructions: Please follow-up with your primary care physician, neurologist, harness preparer within 1-2 weeks of discharge Diet Recommended Diet: Heart Healthy Activity Activity Self Limited: Yes Acute Coronary Syndrome Inclusion Criteria At DC or during hospital stay patient has or had the following: ACS DIAGNOSIS No Discharge Core Measures Meds if any: Prescribed or Continued at Discharge Meds if any: NOT Prescribed or Continued at Discharge Congestive Heart Failure Inclusion Criteria At DC or during hospital stay patient has or had the following: CHF DIAGNOSIS No Discharge Core Measures Meds if any: Prescribed or Continued at Discharge MERA/ARB for EF <40% No Meds if any: NOT Prescribed or Continued at Discharge Cerebrovascular accident Inclusion Criteria At DC or during hospital stay patient has or had the following: CVA/TIA Diagnosis No Discharge Core Measures Meds if any: Prescribed or Continued at Discharge Meds if any: NOT Prescribed or Continued at Discharge Venous thromboembolism Inclusion Criteria VTE Diagnosis No VTE Type NONE VTE Confirmed by (Test) NONE Discharge Core Measures - Per Current guidelines, there needs to be overlap - treatment for the first 5 days of Warfarin therapy. - If discharged on Warfarin prior to 5 days of - overlap therapy, the patient will need to be - assessed for post discharge needs including - *Post discharge parental anticoagulation - *Warfarin and/or parental anticoagulation education - *Follow up date to check INR post discharge At least 5 days overlap therapy as Inpatient No Meds if any: Prescribed or Continued at Discharge Note: Overlap Therapy is Warfarin and Anticoagulant Meds if any: NOT Prescribed or Continued at Discharge
[2018-06-12 11:55] VITALS: BP 117/50
== END 2018-06-12 13:05 | disposition home health service (06) | DRG 92 ==
LOC: ERH 21:52 → ERHI 23:43 → 1NO 23:43 → ENRESERV 06-11 00:41 → 1NO 06-11 01:24 → ENPENDDIS 06-12 10:03 → ENTRNSPT 06-12 12:21 → 1NO 06-12 13:05 → EDTRNSPTSTS 06-12 14:12 → CMPTRNSPT 06-12 14:13
PROVIDERS: Emergency Medicine; Hospitalist; Internal Medicine
DX: R47.01 Aphasia (principal); G45.9 Transient cerebral ischemic attack, unspecified; E87.1 Hypo-osmolality and hyponatremia; F20.0 Paranoid schizophrenia; I50.30 Unspecified diastolic (congestive) heart failure; Z79.4 Long term (current) use of insulin; E11.40 Type 2 diabetes mellitus with diabetic neuropathy, unspecified; Z86.73 Personal history of transient ischemic attack (TIA), and cerebral infarction without residual deficits; H35.30 Unspecified macular degeneration; H54.8 Legal blindness, as defined in USA; R41.82 Altered mental status, unspecified; G89.29 Other chronic pain; M54.9 Dorsalgia, unspecified; I11.0 Hypertensive heart disease with heart failure; Z66 Do not resuscitate
CPT/HCPCS: 1NP; 70551; 84133; 84300; ERO; 36592; 81003; 82436; 82570; 93005; 93010; 97116-GO; 97161-GP; 99291; J1650; Q2036